=== PATIENT | male | born 1955 | race Caucasian/White ===

== ENCOUNTER → 2020-08-01 09:56 | Outpatient (BNVA) | payer BC, SELFPAY | PROVIDERS: PCP Internal Medicine; Visit Provider Internal Medicine | DX: F11.20 Opioid dependence, uncomplicated (principal) | CPT/HCPCS: 80305; Q9992 ==

== ENCOUNTER → 2020-08-29 10:30 | Outpatient (BNVA) | payer BC, SELFPAY | PROVIDERS: PCP Internal Medicine; Visit Provider Internal Medicine | DX: F11.20 Opioid dependence, uncomplicated (principal) | CPT/HCPCS: 80305; Q9991 ==

== ENCOUNTER 2020-09-26 11:10 | Outpatient (REF) | payer MEDICARE, BC, SELFPAY ==
[2020-09-26 13:08] LABS: Alanine Aminotransferase 34 U/L (0-40); Albumin Level 4.4 g/dL (3.5-5.0); Alkaline Phosphatase 92 U/L (39-117); Amylase 61 U/L (28-100); Anion Gap 13 (12-20); Aspartate Amino Transferase 40 U/L (5-37); Bilirubin Total 0.7 mg/dL (0.0-1.0); Blood Urea Nitrogen 9 mg/dL (9-16); Carbon Dioxide 32 mmol/L (22-29); Chloride 101 mmol/L (96-108); Cholesterol 194 mg/dL; Estimated Glomerular Filt Rate > 60; Glucose Random 100 mg/dL (60-115); HDL Cholesterol 87 mg/dL; LDL Cholesterol Calculated 92 mg/dl; Lipase 59 U/L (8-78); Potassium 4.6 mmol/l (3.3-5.1); Sodium 141 mmol/L (135-145); Total Protein 7.3 g/dL (6.5-8.0); Triglycerides 79 mg/dL
== END 2020-09-26 11:11 | disposition home or self-care (01) ==
LOC: HO.LAB 11:10
PROVIDERS: PCP Internal Medicine; Visit Provider Internal Medicine
DX: E78.00 Pure hypercholesterolemia, unspecified (principal); R10.13 Epigastric pain; I10 Essential (primary) hypertension; F11.99 Opioid use, unspecified with unspecified opioid-induced disorder
CPT/HCPCS: 80053; 80061; 82150; 83690; 96372; Q9991

== ENCOUNTER → 2020-10-24 10:13 | Outpatient (BNVA) | payer MEDICARE, BC, SELFPAY | PROVIDERS: PCP Internal Medicine; Visit Provider Internal Medicine | DX: F11.20 Opioid dependence, uncomplicated (principal) | CPT/HCPCS: 80305; 96372; Q9991 ==

== ENCOUNTER → 2020-11-21 10:20 | Outpatient (BNVA) | payer BC, SELFPAY | PROVIDERS: PCP Internal Medicine; Visit Provider Internal Medicine | DX: F11.99 Opioid use, unspecified with unspecified opioid-induced disorder (principal) ==

== ENCOUNTER → 2020-11-28 10:08 | Outpatient (BNVA) | payer MEDICARE, BC, SELFPAY | PROVIDERS: PCP Internal Medicine; Visit Provider Internal Medicine | DX: F11.99 Opioid use, unspecified with unspecified opioid-induced disorder (principal) | CPT/HCPCS: 80305; 96372; 99212; Q9991 ==

== ENCOUNTER → 2020-12-28 10:40 | Outpatient (BNVA) | payer MEDICARE, BC, SELFPAY | PROVIDERS: Visit Provider Nurse Practitioner Psychiatric/Mental Health | DX: F11.11 Opioid abuse, in remission (principal); Z51.81 Encounter for therapeutic drug level monitoring | CPT/HCPCS: 80305; 96372; 99211; Q9991 ==

== ENCOUNTER → 2021-01-29 10:40 | Outpatient (BNVA) | payer MEDICARE, BC, SELFPAY | PROVIDERS: Visit Provider Internal Medicine | DX: F11.99 Opioid use, unspecified with unspecified opioid-induced disorder (principal) | CPT/HCPCS: 80305; 99212 ==

== ENCOUNTER → 2021-02-13 12:55 | Outpatient (BNVA) | payer MEDICARE, BC, SELFPAY | PROVIDERS: Visit Provider Internal Medicine | DX: F11.20 Opioid dependence, uncomplicated (principal); Z51.81 Encounter for therapeutic drug level monitoring; Z79.899 Other long term (current) drug therapy | CPT/HCPCS: 99211; 99212 ==

== ENCOUNTER → 2021-03-06 10:01 | Outpatient (BNVA) | payer MEDICARE, BC, SELFPAY | PROVIDERS: Visit Provider Internal Medicine | DX: F11.20 Opioid dependence, uncomplicated (principal) | CPT/HCPCS: 80305; 99212 ==

== ENCOUNTER 2022-09-19 08:30 | Outpatient (REF) | payer MEDICARE, BC, SELFPAY ==
[2022-09-19 11:26] LABS: MANUAL DIFF FLAG NO
[2022-09-19 11:29] LABS: Appearance Urine Clear; Color Urine Yellow; Glucose Urine UA Negative (Negative); Leukocyte Esterase Urine Negative (Negative); Nitrite Urine Negative (Negative); PH 8.5 (5.0-9.0); Specific Gravity - Urine 1.015 (1.005-1.025); Urine Blood Negative (Negative); Urine Ketones Negative (Negative); Urine Protein Negative (Neg-Trace)
[2022-09-19 11:39] LABS: Basophils Percent Auto 0.9 % (0-2); Eosinophils Absolute Auto 0.1 X10*3/uL (0.0-0.4); Eosinophils Percent Auto 1.3 % (0-4); Hematocrit 45.1 % (42.0-52.0); Hemoglobin 15.3 g/dl (14.0-18.0); Imm Gran Abs Auto 0.01 X10*3/uL (0.00-0.03); Imm Gran Pct Auto 0.2 % (0.0-0.4); Lymphocytes Absolute Auto 1.4 X10*3/uL (1.2-4.9); Lymphocytes Percent Auto 29.2 % (20-40); Mean Corpuscular HGB Conc 33.9 g/dl (31.0-36.0); Mean Corpuscular Hemoglobin 33.8 pg (27.0-33.0); Mean Corpuscular Volume 99.8 fL (80.0-98.0); Mean Platelet Volume 10.8 fL (9.4-12.4); Monocytes Absolute Auto 0.5 X10*3/uL (0.1-1.2); Monocytes Percent Auto 10.7 % (2-11); Neutrophils Absolute Auto 2.7 x10*3/uL (2.0-8.3); Neutrophils Percent Auto 57.7 % (45-73); Platelet Count 214 X10*3/uL (160-400); Red Blood Count 4.52 X10*6/uL (4.60-5.80); Red Cell Distribution Width 11.6 % (11.0-16.0); White Blood Count 4.7 X10*3/uL (4.8-10.8)
[2022-09-19 11:43] LABS: Bacteria Urine None Seen (None Seen); Hyaline Casts Urine 0-2 /LPF (0-2); RBC Urine 0-2 /HPF (0-2); Squamous Epithelial Cell Urine 0-2 /HPF (0-2); WBC Urine 0-5 /HPF (0-5)
[2022-09-19 13:27] LABS: Alanine Aminotransferase 27 U/L (0-40); Albumin Level 4.7 g/dL (3.5-5.0); Alkaline Phosphatase 91 U/L (39-117); Anion Gap 16 (12-20); Aspartate Amino Transferase 52 U/L (5-37); Bilirubin Total 1.3 mg/dL (0.0-1.0); Blood Urea Nitrogen 8 mg/dL (9-16); Calcium 9.4 mg/dL (8.4-10.2); Carbon Dioxide 28 mmol/L (22-29); Chloride 103 mmol/L (96-108); Cholesterol 241 mg/dL; Estimated Glomerular Filt Rate > 60; Glucose Fasting 107 mg/dL (60-99); HDL Cholesterol 126 mg/dL; LDL Cholesterol Calculated 107 mg/dl; Potassium 4.2 mmol/L (3.3-5.1); Prostate Specific Antigen 6.51 ng/mL (<0.05-4.0); Sodium 143 mmol/L (135-145); Thyroid Stimulating Hormone 1.24 uIU/mL (0.32-4.0); Total Protein 7.7 g/dL (6.5-8.0); Triglycerides 43 mg/dL; Vitamin D 25-OH Total 11.2 ng/mL (>30)
== END 2022-09-19 08:31 | disposition home or self-care (01) ==
LOC: HO.HMGCLDS 08:30
PROVIDERS: PCP Internal Medicine; Visit Provider Internal Medicine
DX: I10 Essential (primary) hypertension (principal); E78.00 Pure hypercholesterolemia, unspecified; E55.9 Vitamin D deficiency, unspecified; Z12.5 Encounter for screening for malignant neoplasm of prostate
CPT/HCPCS: 36415; 80053; 80061; 81001; 82306; 84153; 84443; 85025

== ENCOUNTER 2022-12-19 14:19 | Outpatient (REF) | payer MEDICARE, BC, SELFPAY ==
--- NOTE | 2022-12-19 | ECG_ITS ---
Test Reason : sob Blood Pressure : / mmHG Vent. 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
--- NOTE | ~2022-12-19 | XR_ITS ---
EXAMINATION: XR CHEST CLINICAL INFORMATION: Shortness of breath COMPARISON: None available. TECHNIQUE: 2 views of the chest were obtained. FINDINGS: The right hemidiaphragm is elevated. Otherwise both lungs are well-expanded and clear. The heart size and pulmonary vascularity is normal. There is mild dextroscoliosis. No aggressive lytic or sclerotic process seen. XR/XR chest 2V IMPRESSION: Right hemidiaphragm otherwise unremarkable as chest x-ray.
[2022-12-19 14:43] LABS: MANUAL DIFF FLAG NO
[2022-12-19 15:18] LABS: Basophils Percent Auto 0.5 % (0-2); Eosinophils Absolute Auto 0.1 X10*3/uL (0.0-0.4); Eosinophils Percent Auto 0.9 % (0-4); Hematocrit 44.5 % (42.0-52.0); Hemoglobin 15.6 g/dl (14.0-18.0); Imm Gran Abs Auto 0.01 X10*3/uL (0.00-0.03); Imm Gran Pct Auto 0.2 % (0.0-0.4); Lymphocytes Absolute Auto 1.3 X10*3/uL (1.2-4.9); Lymphocytes Percent Auto 22.7 % (20-40); Mean Corpuscular HGB Conc 35.1 g/dl (31.0-36.0); Mean Corpuscular Hemoglobin 34.4 pg (27.0-33.0); Monocytes Absolute Auto 0.7 X10*3/uL (0.1-1.2); Monocytes Percent Auto 12.9 % (2-11); Neutrophils Absolute Auto 3.5 x10*3/uL (2.0-8.3); Neutrophils Percent Auto 62.8 % (45-73); Platelet Count 180 X10*3/uL (160-400); Red Blood Count 4.54 X10*6/uL (4.60-5.80); Red Cell Distribution Width 12.8 % (11.0-16.0); White Blood Count 5.6 X10*3/uL (4.8-10.8)
[2022-12-19 15:50] LABS: Alanine Aminotransferase 46 U/L (0-40); Albumin Level 4.7 g/dL (3.5-5.0); Alkaline Phosphatase 97 U/L (39-117); Anion Gap 18 (12-20); Aspartate Amino Transferase 90 U/L (5-37); Bilirubin Total 1.9 mg/dL (0.0-1.0); Blood Urea Nitrogen 6 mg/dL (9-16); C Reactive Protein 1.36 mg/dL (< or = 0.50); Calcium 9.3 mg/dL (8.4-10.2); Carbon Dioxide 26 mmol/L (22-29); Chloride 102 mmol/L (96-108); Estimated Glomerular Filt Rate > 60; Glucose Random 91 mg/dL (60-115); Potassium 3.8 mmol/L (3.3-5.1); Sodium 142 mmol/L (135-145); Total Protein 7.7 g/dL (6.5-8.0)
[2022-12-19 16:07] LABS: Thyroid Stimulating Hormone 0.92 uIU/mL (0.32-4.0)
== END 2022-12-19 14:20 | disposition home or self-care (01) ==
LOC: HO.LAB 14:19
PROVIDERS: PCP Internal Medicine; Visit Provider Internal Medicine
DX: R06.02 Shortness of breath (principal); I10 Essential (primary) hypertension; E66.9 Obesity, unspecified
CPT/HCPCS: 36415; 71046; 80053; 84443; 85025; 86140; 93005

== ENCOUNTER 2023-01-03 12:53 | Outpatient (REF) | payer MEDICARE, BC, SELFPAY ==
[2023-01-03 14:41] LABS: Prostate Specific Antigen 5.92 ng/mL (<0.05-4.0)
== END 2023-01-03 12:54 | disposition home or self-care (01) ==
LOC: HO.HMGCLDS 12:53
PROVIDERS: PCP Internal Medicine; Visit Provider Physician Assistant
DX: R97.20 Elevated prostate specific antigen [PSA] (principal); Z12.5 Encounter for screening for malignant neoplasm of prostate
CPT/HCPCS: 36415; 84153

== ENCOUNTER 2024-11-30 08:59 | Outpatient (AMB) | payer MEDICARE, BC, SELFPAY ==
--- NOTE | 2024-11-30 09:02 | A.OFFPC_ITS ---
Vital Signs 11/30/24 09:14 Height 5 ft 9.25 in Weight 241 lb BMI 35.3 BP 132/72 Blood Pressure Location Rt brachial Pulse 60 Pulse Source Pulse Oximeter Temp 97.1 F Pulse Oximetry (%) 94 Oxygen Delivery Method Room Air Intake Visit Reasons: physical Intake Note: trouble with his legs and shoulders the legs are getting worse can't do stairs fell about 5 times and needed help up. Allergies No Known Allergies Allergy (Verified 11/30/24 10:47) seasonal Allergy (Unknown, Uncoded 11/30/24 10:47) Itchy Eyes Medication List - Last Reconciled 11/30/24 by Lilly Cotton PA-C amlodipine-benazepril 10-40 mg 1 cap PO DAILY atorvastatin 40 mg PO DAILY cholecalciferol (vitamin D3) mcg PO clonidine HCl 0.05 mg PO BID PFSH Medical History (Updated 11/30/24 @ 11:28 by Lilly Cotton PA-C) Obesity (BMI 30-39.9) Alcohol use disorder, moderate, dependence Gait disorder Elevated PSA History of gastritis Degenerative disc disease, lumbar Depression Cervical spondylosis Osteoarthritis Mild hypercholesterolemia Hypertension Opioid use disorder Opioid use disorder Surgical History History of colonoscopy (~11/23/14) History of neck surgery History of back surgery Physical exam (Primary Care) Vital Signs: Last Vital Signs Temp 97.1 F 11/30/24 09:14 Pulse 60 11/30/24 09:14 BP 132/72 11/30/24 09:14 Pulse Ox 60 L 11/30/24 09:14 Care Plan Goal for BP management: 130/80 BMI result Body Mass Index 35.3 BMI Assessment/Plan discussion: High BMI High, discussed plan: lifestyle, weight reduction, dietary, physical activity and alcohol moderation Coding Level of Care Code New Pt Level 4 (92209) Complex EM visit Add On G2211 Diagnoses Elevated PSA R97.20 Gait disorder R26.9 Alcohol use disorder, moderate, dependence F10.20 Hypertension I10 Mild hypercholesterolemia E78.00 Osteoarthritis M19.90 Cervical spondylosis M47.812 Depression F32.A Degenerative disc disease, lumbar M51.369 Obesity (BMI 30-39.9) E66.9 Assessment & Plan Assessment & Plan (1) Elevated PSA: Code(s): R97.20 - Elevated prostate specific antigen [PSA] Category: Medical Plan: Patient noted to have elevated PSA on 01/03/2023. Follow-up with the urologist and [facility] although patient had a bad experience and did not go back. Reports he had an MRI although never found out the results. Will refer to new urologist and repeat PSA. Condition is chronic and stable continue to monitor. (2) Gait disorder: Code(s): R26.9 - Unspecified abnormalities of gait and mobility Category: Medical Plan: Patient with ataxic gait. This is new over the past few months. Otherwise no other focal deficits. May be related from chronic alcohol dependency. Will order outpatient labs. Will order outpatient CT scan. Will refer to Physical therapy. Instructed patient to utilize his walker and cane as much as possible. Filled out plaque form for his car to be able to parking handicap parking. Will have patient return in 2 weeks for re-evaluation. (3) Alcohol use disorder, moderate, dependence: Code(s): F10.20 - Alcohol dependence, uncomplicated Category: Medical Plan: Patient educated about alcohol use disorder and the importance of this session. No evidence of withdrawal symptoms. Condition is chronic and stable continue to monitor (4) Hypertension: Code(s): I10 - Essential (primary) hypertension Category: Medical Plan: BP Goal 130/80. Blood pressure 130/72. Patient currently on amlodipine-b enazepril 10-40 mg daily. Condition is chronic and stable continue to monitor. (5) Mild hypercholesterolemia: Code(s): E78.00 - Pure hypercholesterolemia, unspecified Category: Medical Plan: Patient currently on atorvastatin 40 mg daily. Condition is chronic and stable continue to monitor. (6) Osteoarthritis: Code(s): M19.90 - Unspecified osteoarthritis, unspecified site Category: Medical Plan: Patient currently taking [id number] Tylenol and ibuprofen. Will send prescription for ibuprofen 800. As patient reports ibuprofen helps his symptoms better than than the Tylenol does. Condition is chronic and stable continue to monitor. (7) Cervical spondylosis: Code(s): M47.812 - Spondylosis without myelopathy or radiculopathy, cervical region Category: Medical Plan: Patient currently taking fcje-fzw-mypomwz Tylenol and ibuprofen. Will send prescription for ibuprofen 800. As patient reports ibuprofen helps his symptoms better than than the Tylenol does. Condition is chronic and stable continue to monitor. (8) Depression: Code(s): F32.A - Depression, unspecified Category: Medical Plan: Patient currently on clonidine 0.5 mg p.o. b.i.d.. Condition is chronic and stable continue to monitor. (9) Degenerative disc disease, lumbar: Code(s): M51.369 - Other intervertebral disc degeneration, lumbar region without mention of lumbar back pain or lower extremity pain Category: Medical Plan: Patient currently taking sltp-zsz-hjptpxm Tylenol and ibuprofen. Will send prescription for ibuprofen 800. As patient reports ibuprofen helps his symptoms better than than the Tylenol does. Condition is chronic and stable continue to monitor. (10) Obesity (BMI 30-39.9): Code(s): E66.9 - Obesity, unspecified Category: Medical Plan: Patient to improve his diet and exercise regimen. Condition is chronic and stable continue to monitor. Plan Plan - Conduct a Complete Blood Count CBC) and Comprehensive Metabolic Panel CMP) to examine blood cell counts and metabolic function. - Order liver function tests, thyroid function tests TSH), and vitamin panels including B1, , and D levels. - Check PSA levels and conduct a lipid panel. - Refer to urology for PSA management and potential prostate evaluation. - Obtain a CT scan of the head without contrast to assess potential neurological factors related to falls. - Advise patient to utilize a walker regularly and consider physical therapy for gait disorder management. - Discuss implications of alcohol use on health and consider reduction strategies. Orders: Orders Complete Blood Count Auto Diff Today Z00.00 - Encounter for general adult medical examination without abnormal findings C Reactive Protein Today Z00.00 - Encounter for general adult medical examination without abnormal findings Lipid Panel Today Z00.00 - Encounter for general adult medical examination without abnormal findings Liver Panel Today Z00.00 - Encounter for general adult medical examination without abnormal findings Magnesium Today Z00.00 - Encounter for general adult medical examination without abnormal findings TSH reflex Free T4 Today Z00.00 - Encounter for general adult medical examination without abnormal findings Vitamin B1 Today Z00.00 - Encounter for general adult medical examination without abnormal findings Vitamin B12 and Folate Today Z00.00 - Encounter for general adult medical ex amination without abnormal findings Vitamin D 25-OH Total Today Z00.00 - Encounter for general adult medical examination without abnormal findings Hemoglobin A1c Today Z00.00 - Encounter for general adult medical examination without abnormal findings PT Evaluation and Treatment Today R26.9 - Unspecified abnormalities of gait and mobility Comprehensive [place]. Panel Fast Today Z00.00 - Encounter for general adult medical examination without abnormal findings PSA,Total (Free>4and<10) Today Z00.00 - Encounter for general adult medical examination without abnormal findings RPR Monitor reflex titer Today R26.9 - Unspecified abnormalities of gait and mobility CT head/brain wo IV con Today R26.9 - Unspecified abnormalities of gait and mobility Referrals Urology Referral R97.20 - Elevated prostate specific antigen [PSA] Medications: New ibuprofen 800 mg PO Q8H 30 tabs 3RF Patient Instructions: Patient Instructions - Proceed to have blood work done as discussed (CBC, CMP, liver, and thyroid pa ronal). - Schedule and complete the CT scan of the head. - Follow up with urology for prostate assessment. - Encourage reducing alcohol intake to mitigate health impacts. - Utilize walker routinely for safe mobility and prevent falls. - Attend the physical therapy session to obtain an exercise plan. - Visit us in two weeks for follow-up and to review results. Scribe Plan - Not visible on output: History of Present Illness The patient is a 69-year-old male presenting with multiple falls and a deterioration of his physical condition. The falls have increased in frequency over the past six months, with the patient experiencing difficulty ascending stairs, weakness when getting out of bed, and rubbery legs. The patient has fallen five times in the past month. He uses a walker and a cane but continues to have falls. There is no noted dizziness, vision changes, or confusion, but the patient reports hand tremors when sitting in a chair. There is no known family history of neurodegenerative disorders such as Parkinson's or Donald's disease. The patient consumes alcohol, about four beers a day occasionally and possibly contributing to his condition. He has a history of essential hypertension, hyperlipidemia, previous elevated bilirubin levels, and elevated PSA levels noted in 2022 which were not followed up. He has undergone an MRI in the past, which remains with the treating facility. The patient received medical advice from a previous urologist but was dissatisfied with the care there. Additionally, the patient reports frequent urination but no incontinence. He experiences chronic neck spasms and has a past medical history significant for hip replacement surgery. Social History - Substance Use: History of substance abuse, previously treated with buprenorphine. Current consumption of approximately four beers a day occasionally. - Employment: Formerly worked in construction. - Family Status: , with family support. - Housing: Stable, with provisions for mobility assistance such as raised toilet seats and handrails. - Exercise/Functional Status: Limited physical activity due to past falls and physical decline; uses a walker or cane. - Nutrition: Reduced dietary intake; spouse encourages eating. Review of Systems - Neurological: Reports hand tremors while sitting. - Musculoskeletal: Denies significant pain or new onset pain elsewhere. - Genitourinary: Reports frequent urination, denies incontinence or accidents. - Constitutional: Reports feeling tired all the time. Physical Exam Appearance: Alert. Oriented X3. No acute distress. Head: Normal external exam. Normocephalic. Atraumatic. Eyes: Pupils are equal, round, and reactive to light. Extraocular movements intact. Conjunctiva and sclera normal. Eyelids normal. Ears: External auditory canal normal. Tympanic membranes normal. Throat: Pharynx normal. Uvula midline. Moist mucous membranes. Neck: Normal inspection. Neck supple. Full range of motion. No adenopathy. Thyroid Normal. No meningeal signs. No neck mass noted. Cardiovascular: Normal heart rate and rhythm. Heart sound normal. No murmurs noted. Pulses normal throughout. Respiratory: No respiratory distress. Painless inspiration. Breath sounds normal. No wheezes/rales/rhonchi noted. Chest nontender. No accessory muscle usage noted or decreased air movement noted. Abdomen: Soft and nontender. Bowel sounds normal in all 4 quadrants. No distention noted. No organomegaly noted. No visible injury noted. Back: No costovertebral angle tenderness. Full range of motion noted. Skin: Skin warm and dry. Normal skin color. Normal skin turgor. No rashes/lesions/lacerations noted. Extremities: No lower extremity edema. Extremities exhibit normal range of motion. Extremities nontender. Neuro: Oriented X 3. No motor deficit. No sensory deficit. Reflexes normal. Noted ataxic gait. Shaking observed when sitting. Results - Labs: Elevated PSA in 2022, elevated bilirubin levels in the past. - Tests and Diagnostics: Previous MRI performed; report not available. Plan - Conduct a Complete Blood Count CBC) and Comprehensive Metabolic Panel CMP) to examine blood cell counts and metabolic function. - Order liver function tests, thyroid function tests TSH), and vitamin panels including B1, , and D levels. - Check PSA levels and conduct a lipid panel. - Refer to urology for PSA management and potential prostate evaluation. - Obtain a CT scan of the head without contrast to assess potential neurological factors related to falls. - Advise patient to utilize a walker regularly and consider physical therapy for gait disorder management. - Discuss implications of alcohol use on health and consider reduction strategies. Patient was informed and verbally consented to the use of an ambient scribe for clinic note documentation during this visit. Discussion Notes I engaged in a detailed discussion with the patient and spouse about the health concerns, emphasizing the risks associated with alcohol use and potential consequences, such as falls and neurological effects. I explained the need for a thorough evaluation of his condition, including blood work and imaging studies, to rule out metabolic and structural causes of his symptoms. We discussed the potential diagnosis of alcoholic ataxia and its implications. The importance of follow-ups with both neurology and urology was stressed to ensure comprehensive management of his conditions. I recommended physical therapy to improve gait stability and prevent future falls, though the patient was initially resistant but open to trying recommended exercises once. All recommendations were provided, and they understood the necessity of the interventions and agreed to proceed with the planned tests and referrals. Patient Instructions - Proceed to have blood work done as discussed (CBC, CMP, liver, and thyroid panels). - Schedule and complete the CT scan of the head. - Follow up with urology for prostate assessment. - Encourage reducing alcohol intake to mitigate health impacts. - Utilize walker routinely for safe mobility and prevent falls. - Attend the physical therapy session to obtain an exercise plan. - Visit us in two weeks for follow-up and to review results.
[2024-11-30 09:14] VITALS: BP 132/72; PULSE 60; TEMP 36.2; O2SAT 94; BMI 35.3
== END 2024-11-30 09:50 | disposition home or self-care (01) ==
LOC: HO.HMCSH 09:00
PROVIDERS: PCP Internal Medicine; Visit Provider Physician Assistant Medical
DX: R97.20 Elevated prostate specific antigen [PSA] (principal); R26.9 Unspecified abnormalities of gait and mobility; F10.20 Alcohol dependence, uncomplicated; I10 Essential (primary) hypertension; E78.00 Pure hypercholesterolemia, unspecified; M19.90 Unspecified osteoarthritis, unspecified site; M47.812 Spondylosis without myelopathy or radiculopathy, cervical region; F32.A Depression, unspecified; M51.369 Other intervertebral disc degeneration, lumbar region without mention of lumbar back pain or lower extremity pain; E66.9 Obesity, unspecified

== ENCOUNTER → 2024-11-30 08:59 | Outpatient (BNVA) | payer MEDICARE, BC, SELFPAY | PROVIDERS: PCP Internal Medicine; Visit Provider Physician Assistant Medical | DX: R97.20 Elevated prostate specific antigen [PSA] (principal); R26.9 Unspecified abnormalities of gait and mobility; F10.20 Alcohol dependence, uncomplicated; E78.00 Pure hypercholesterolemia, unspecified; I10 Essential (primary) hypertension; M19.90 Unspecified osteoarthritis, unspecified site; M47.812 Spondylosis without myelopathy or radiculopathy, cervical region; F32.A Depression, unspecified; M51.369 Other intervertebral disc degeneration, lumbar region without mention of lumbar back pain or lower extremity pain; E66.9 Obesity, unspecified | CPT/HCPCS: 99202 ==

== ENCOUNTER 2024-12-03 08:06 | Outpatient (REF) | payer MEDICARE, BC, SELFPAY ==
[2024-12-03 10:24] LABS: MANUAL DIFF FLAG NO
[2024-12-03 10:35] LABS: Basophils Percent Auto 0.7 % (0-2); Hematocrit 46.9 % (42.0-52.0); Imm Gran Abs Auto 0.01 X10*3/uL (0.00-0.03); Imm Gran Pct Auto 0.2 % (0.0-0.4); Lymphocytes Absolute Auto 1.1 X10*3/uL (1.2-4.9); Mean Corpuscular HGB Conc 36.2 g/dl (31.0-36.0); Mean Corpuscular Hemoglobin 35.1 pg (27.0-33.0); Mean Corpuscular Volume 96.7 fL (80.0-98.0); Mean Platelet Volume 11.9 fL (9.4-12.4); Monocytes Absolute Auto 0.5 X10*3/uL (0.1-1.2); Monocytes Percent Auto 8.4 % (2-11); Neutrophils Percent Auto 71.7 % (45-73); Red Blood Count 4.85 X10*6/uL (4.60-5.80); Red Cell Distribution Width 12.2 % (11.0-16.0); White Blood Count 5.6 X10*3/uL (4.8-10.8)
[2024-12-03 10:36] LABS: Platelet Count 124 X10*3/uL (160-400)
[2024-12-03 10:37] LABS: Estimated Average Glucose 114 mg/dL; Hemoglobin A1C 161.0369 umol/L; Hemoglobin A1c % 5.6 % (<6.0); Total Hemoglobin (HGBA1C) 4298.7984 umol/L
[2024-12-03 11:00] LABS: PSA,Total (Free>4and<10) 8.24 ng/mL (0.00-4.00)
[2024-12-03 11:12] LABS: Folate 3.2 ng/mL (> or = 4.0); Vitamin B12 525 pg/mL (200-900)
[2024-12-03 11:19] LABS: Alanine Aminotransferase 58 U/L (0-40); Albumin Level 4.4 g/dL (3.5-5.0); Anion Gap 25 (12-20); Aspartate Amino Transferase 190 U/L (5-37); Bilirubin Direct 1.2 mg/dL (0.0-0.5); Bilirubin Total 3.1 mg/dL (0.0-1.0); Blood Urea Nitrogen 7 mg/dL (9-16); Calcium 8.9 mg/dL (8.4-10.2); Carbon Dioxide 29 mmol/L (22-29); Chloride 95 mmol/L (96-108); Cholesterol 118 mg/dL (<200); Estimated Glomerular Filt Rate > 60; Glucose Fasting 109 mg/dL (60-99); HDL Cholesterol 74 mg/dL (>40); LDL Cholesterol Calculated 29 mg/dL (<100); Magnesium 1.1 mg/dL (1.6-2.6); Potassium 3.5 mmol/L (3.3-5.1); Sodium 145 mmol/L (135-145); Total Protein 8.2 g/dL (6.5-8.0); Triglycerides 76 mg/dL (<150); Vitamin D 25-OH Total 60.6 ng/mL (>30)
[2024-12-03 11:22] LABS: Alkaline Phosphatase 76 U/L (39-117)
[2024-12-05 15:39] LABS: RPR Rapid Plasma Reagin NON-REACTIVE (NON-REACTIVE)
[2024-12-06 09:39] LABS: Percent Free Prostate Spec Ag 24 % (calc) (>25); Prostate Specific Ag Total 8.2 ng/mL (< OR = 4.0)
[2024-12-12 14:08] LABS: Vitamin B1 <6 nmol/L (8-30)
== END 2024-12-03 08:07 | disposition home or self-care (01) ==
LOC: HO.HMGCLDS 08:06
PROVIDERS: PCP Internal Medicine; Visit Provider Physician Assistant Medical
DX: Z00.00 Encounter for general adult medical examination without abnormal findings (principal); R26.9 Unspecified abnormalities of gait and mobility; Z12.5 Encounter for screening for malignant neoplasm of prostate; Z13.1 Encounter for screening for diabetes mellitus; Z13.6 Encounter for screening for cardiovascular disorders
CPT/HCPCS: 36415; 80053; 80061; 80076; 82248; 82306; 82607; 82746; 83036; 83735; 84153; 84154; 84425; 84443; 85025; 86140; 86592

== ENCOUNTER 2024-12-24 07:29 | Outpatient (REF) | payer MEDICARE, BC, SELFPAY ==
--- NOTE | ~2024-12-24 | CT_ITS ---
EXAMINATION: CT HEAD WITHOUT CONTRAST CLINICAL INFORMATION: R26.9 - Unspecified abnormalities of gait and mobility COMPARISON: None available. TECHNIQUE: Contiguous axial imaging was performed from the skull base to vertex without intravenous administration of contrast. This CT examination was performed using dose optimization techniques as appropriate, variously including the following: *Automated exposure control *Adjustment of mA and/or kV according to patient size (this includes techniques or standardized protocols for targeted exams where dose is matched to indication/reason for exam; i.e. extremities or head) *Use of iterative reconstruction technique DLP: 909 mGy-cm FINDINGS: No acute intracranial hemorrhage, mass effect, midline shift, hydrocephalus or herniation. Bilateral multifocal patchy deep periventricular white matter hypodensities involving centrum semiovale and michaels radiata. Prominence of the extra-axial CSF spaces cerebral sulci and ventricles. Posterior cranial fossa contents demonstrated no CSF prominence extending from the inferior fourth ventricle beneath the vermis cerebellum and cisterna magna. Sellar/suprasellar region demonstrated no gross masses. Craniocervical junction is intact. Calcified plaques in the cavernous segments both ICAs. Old traumatic deformities, nasal bones and right zygomatic arc. Poor pneumatization left frontal sinus. No air-fluid levels in the paranasal sinuses. Mucosal thickening maxillary sinuses. Tympanic cavities and mastoid cells are aerated. No masses or fluid collections in the intraconal or extraconal compartments of the orbits. Status post intraocular lens surgery, right eyeball. CT/CT head/brain wo IV con IMPRESSION: White matter disease likely related to small vessel occlusive disease. Mild global cerebral atrophy. Consider Paddy's pouch cyst Electronically signed by: Kevin Hernández MD 12/24/2024 08:15 AM EDT
--- NOTE | ~2024-12-24 | US_ITS ---
EXAMINATION: US ABDOMEN HISTORY: R74.8 - Abnormal levels of other serum enzymes TECHNIQUE: Real-time grayscale ultrasound imaging of the abdomen was performed and images were reviewed. COMPARISON: Comparison is made with the prior examination dated 03/21/2020. FINDINGS: Liver: The right lobe of the liver measures 14.0 cm in size. The left lobe of the liver is largely obscured. The liver demonstrates heterogeneous increased echotexture, consistent with steatosis. Evaluation for masses is extremely limited. Gallbladder and biliary tree: The gallbladder is unremarkable, without evidence of calculi, wall thickening, or pericholecystic fluid. There is no sonographic Yuan sign. The common bile duct is not visualized. Kidneys: The right kidney measures 11.5 cm in length. The left kidney measures 12.2 cm in length. The kidneys are unremarkable, without evidence of masses, hydronephrosis, or calculi. Pancreas: The pancreas is obscured by bowel gas. Spleen: The spleen is normal in size and contour, measuring 9.3 cm in length. Abdominal aorta and inferior vena cava: The abdominal aorta and IVC are not well visualized. There is no free fluid in the abdomen. US/US abdomen complete IMPRESSION: Markedly limited examination as described. Hepatic steatosis. Electronically signed by: Tyrone Joy MD 12/24/2024 08:16 AM EDT
== END 2024-12-24 07:30 | disposition home or self-care (01) ==
LOC: HO.CT 07:29
PROVIDERS: PCP Internal Medicine; Visit Provider Physician Assistant Medical
DX: R26.9 Unspecified abnormalities of gait and mobility (principal); R74.8 Abnormal levels of other serum enzymes; F10.20 Alcohol dependence, uncomplicated
CPT/HCPCS: 70450; 76700

== ENCOUNTER → 2024-12-24 07:31 | Outpatient (BNV) | payer MEDICARE, BC, SELFPAY | PROVIDERS: PCP Internal Medicine; Visit Provider Radiology Diagnostic Radiology | DX: G31.9 Degenerative disease of nervous system, unspecified (principal); R26.9 Unspecified abnormalities of gait and mobility; K76.0 Fatty (change of) liver, not elsewhere classified; R74.8 Abnormal levels of other serum enzymes | CPT/HCPCS: 76700 ==

== ENCOUNTER 2025-01-05 08:59 | Outpatient (AMB) | payer MEDICARE, SELFPAY ==
--- NOTE | 2025-01-05 09:11 | A.OFFPC_ITS ---
Vital Signs 01/05/25 09:20 Height 5 ft 9.25 in Weight 239 lb BMI 35.0 BP 130/78 Blood Pressure Location Lt brachial Pulse 82 Pulse Source Pulse Oximeter Temp 97.7 F Pulse Oximetry (%) 96 Intake Visit Reasons: 1 month follow up Intake Note: would like to discuss his tonsils he feels throat is swelling up in the back and makes him throw up Allergies No Known Allergies Allergy (Verified 01/05/25 12:33) seasonal Allergy (Unknown, Uncoded 01/05/25 12:33) Itchy Eyes Medication List - Last Reconciled 01/05/25 by Lilly Cotton PA-C amlodipine-benazepril 10-40 mg 1 cap PO DAILY atorvastatin 40 mg PO DAILY cholecalciferol (vitamin D3) mcg PO clonidine HCl 0.05 mg (1/2 x 0.1 mg) PO BID 90 days folic acid 0.8 mg PO DAILY ibuprofen 800 mg PO Q8H iron fum,jb-mxzdz-Myuai,C no.9 125 mg iron- 1 mg (Iron Folate Plus) 1 cap PO DAILY magnesium oxide 400 mg PO DAILY thiamine HCl (vitamin B1) 100 mg PO DAILY COUNTS INCLUDE 234 BEDS AT THE [facility] Medical History (Updated 01/05/25 @ 12:56 by Lilly Cotton PA-C) Thiamine deficiency Low folic acid Hypomagnesemia Falls Elevated liver enzymes Cerebral atrophy Ataxia Persistent Paddy pouch cyst Abnormal liver enzymes Thrombocytopenia Elevated PSA, less than 10 ng/ml Obesity (BMI 30-39.9) Alcohol use disorder, moderate, dependence Gait disorder Elevated PSA History of gastritis Degenerative disc disease, lumbar Depression Cervical spondylosis Osteoarthritis Mild hypercholesterolemia Hypertension Opioid use disorder Opioid use disorder Surgical History History of colonoscopy (~11/23/14) History of neck surgery History of back surgery Questionnaire PHQ-9 Over the last 2 weeks, how often have you been bothered by any of the following problems? 1. Little interest or pleasure in doing things: more than half the days 2. Feeling down, depressed, or hopeless: not at all 3. Trouble falling or staying asleep, or sleeping too much: not at all 4. Feeling tired or having little energy: nearly every day 5. Poor appetite or overeating: not at all 6. Feeling bad about yourself - or that you are a failure or have let yourself or your family down: more than half the days 7. Trouble concentrating on things, such as reading the newspaper or watching television: not at all 8. Moving or speaking so slowly that other people could have noticed. Or the opposite - being so fidgety or restless that you have been moving around a lot more than usual: more than half the days 9. Thoughts that you would be better off or of hurting yourself in some way: not at all Total score: 9 Depression Screening Interpretation: Positive Depression Screening Follow-up: Declines treatment Depression Screening Done: Yes 88364 - PHQ-9 Billing: Yes Source: Developed by Drs. Tyrone Candelaria, Jessie Duque, Taras Mcnulty and colleagues, with an educational adalgisa from [employer]. Thrive Questionnaire Date Thrive assessed: 01/05/25 I am a: Patient What is your living situation today?: I have a steady place to live Within the past 12 months, did the food you bought not last and you didn't have the money to get more?: Never true Within the past 12 months, did you worry whether your food would run out before you got money to buy more?: Never true Do you have trouble paying for medicines?: No Do you have trouble getting transportation to medical appointments?: No Do you have trouble paying your heating and electricity bill?: No Do you have trouble taking care of your child, family member or friend?: Yes Do you have trouble with day-to-day activities such as bathing, preparing meals, shopping, managing finances, etc.?: Yes Are you currently unemployed and looking for a job?: No Are you interested in more education?: No THRIVE Score: 0 AUDIT C Alcohol Use Questionnaire (AUDIT-C) 1. How often do you have a drink containing alcohol?: 2-3 times a week 2. How many drinks containing alcohol do you have on a typical day when you are drinking?: 3 or 4 3. How often do you have six or more drinks on one occasion?: Weekly Total Score: 7 Score Reviewed/Action Taken: Yes (pt not interested in stopping drinking at this time) MELVIN-7 AMB Questionnaire MELVIN-7 Date MELVIN - 7 assessed: 01/05/25 Feeling nervous, anxious, or on edge: 0 = Not at all Not being able to stop or control worryin = Not at all Worrying too much about different things: 0 = Not at all Trouble relaxin = Not at all Being so restless that it is hard to sit still: 0 = Not at all Becoming easily annoyed or irritable: 0 = Not at all Feeling afraid as if something awful might happen: 0 = Not at all Total MELVIN-7 score (0-4 normal; 5-9 mild; 10-14 moderate; 15-21 severe): 0 Source: Developed by Drs. Tyrone Candelaria, Jessie Duque, Taras Mcnulty and colleagues, with an educational adalgisa from [employer]. MELVIN-7 Assessment Billing MELVIN-7 Assessment Tool: MELVIN-7 Assessment 05793 Physical exam (Primary Care) Vital Signs: Last Vital Signs Temp 97.7 F 01/05/25 09:20 Pulse 82 01/05/25 09:20 BP 98/69 01/05/25 09:20 Pulse Ox 96 01/05/25 09:20 BMI result Body Mass Index 35.0 PHQ-9: PHQ-9 Score PHQ-9: Total score 9 01/05/25 12:57 Depression Screening Interpretation: Positive Depression Screening Follow-up: Declines treatment Thrive Assessment: Date of Thrive Assessment Date Thrive assessed 01/05/25 01/05/25 09:26 Coding Level of Care Code Est Pt Level 4 (19848) Complex EM visit Add On G2211 Diagnoses Ataxia R27.0 Persistent Paddy pouch cyst Q03.1 Elevated PSA, less than 10 ng/ml R97.20 Alcohol use disorder, moderate, dependence F10.20 Gait disorder R26.9 Cerebral atrophy G31.9 Elevated liver enzymes R74.8 Depression F32.A Falls R29.6 Hypomagnesemia E83.42 Low folic acid E53.8 Thiamine deficiency E51.9 Additional Codes MELVIN-7 Assessment Billing - MELVIN-7 Assessment Tool: MELVIN-7 Assessment 51536 ([id number]) PHQ-9 - 64449 - PHQ-9 Billing: Yes ([id number]) Assessment & Plan Assessment & Plan (1) Ataxia: Code(s): R27.0 - Ataxia, unspecified Category: Medical Plan: Plan physical therapy consultation to support stability. Neurological observation to guide further approach. 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 Ongoing assessment maintains clinical vigilance. (3) Elevated PSA, less than 10 ng/ml: Code(s): R97.20 - Elevated prostate specific antigen [PSA] Category: Medical Plan: Patient to follow-up with urology as scheduled. (4) Alcohol use disorder, moderate, dependence: Code(s): F10.20 - Alcohol dependence, uncomplicated Category: Medical Plan: Abstain from alcohol and consider behavioral therapy. Regular follow-up is crucial for recovery management. (5) Gait disorder: Code(s): R26.9 - Unspecified abnormalities of gait and mobility Category: Medical Plan: Plan physical therapy consultation to support stability. Neurological observation to guide further approach. (6) Cerebral atrophy: Code(s): G31.9 - Degenerative disease of nervous system, unspecified Category: Medical Plan: Plan physical therapy consultation to support stability. Neurological observation to guide further approach. (7) Elevated liver enzymes: Code(s): R74.8 - Abnormal levels of other serum enzymes Category: Medical Plan: Implement dietary modifications and routine liver function monitoring. Recommended lifestyle alterations on the basis of current evaluations. (8) Depression: Code(s): F32.A - Depression, unspecified Category: Medical Plan: Recommended referral to therapist or psychiatrist although patient declined at this time. Denies any SI or HI. will make us aware if patient's mental status changes in his she feels like he needs a therapist or psychiatrist. Will continue to monitor condition is stable without medications. (9) Falls: Code(s): R29.6 - Repeated falls Category: Medical Plan: Plan physical therapy consultation to support stability. Neurological observation to guide further approach. (10) Hypomagnesemia: Code(s): E83.42 - Hypomagnesemia Category: Medical Plan: Continue magnesium, folic acid, and vitamin B1 supplements, pending follow-up evaluation. (11) Low folic acid: Code(s): E53.8 - Deficiency of other specified B group vitamins Category: Medical Plan: Continue magnesium, folic acid, and vitamin B1 supplements, pending follow-up evaluation. (12) Thiamine deficiency: Code(s): E51.9 - Thiamine deficiency, unspecified Category: Medical Plan: Continue magnesium, folic acid, and vitamin B1 supplements, pending follow-up e valuation. Plan Plan Patient was informed and verbally consented to the use of an ambient scribe for clinic note documentation during this visit. 1. Chronic Alcoholism Abstain from alcohol and consider behavioral therapy. Regular follow-up is crucial for recovery management. 2. Falls Plan physical therapy consultation to support stability. Neurological observation to guide further approach. 3. Sore Throat With Gagging/Suspected Uvulitis Advise symptomatic management. Avoid interventions without clear necessity, pending changes in symptom status. 4. Magnesium Deficiency, Low Folic Acid, And Vitamin B1 Levels Continue magnesium, folic acid, and vitamin B1 supplements, pending follow-up evaluation. 5. Cyst-Like Structure Scheduled observation within a neurological context. Ongoing assessment maintains clinical vigilance. 6. Elevated Liver Enzymes And Fatty Liver Implement dietary modifications and routine liver function monitoring. Recommended lifestyle alterations on the basis of current evaluations. 7. Personal history of other specified conditions Ongoing urology consultations with adherence to scheduled examinations remain fundamental. Discussion Notes During this visit, I discussed with the patient the significance of abstaining from alcohol to prevent further complications with hepatic function and neurological impacts. Given his current liver status, we reviewed the implications of elevated enzyme levels and discussed dietary modifications to improve fatty liver. Symptom management for his sore throat, suspected of uvulitis, emphasized observation with symptomatic relief over antibiotics unless necessary, based on progression. Supplement continuation was confirmed, with agreements on vitamin level improvement. Falls linked to the patient's balance issues require physical therapy consideration, potentially beneficial for fall prevention. I reinforced follow-up adherence for all chronic conditions and provided feedback understanding test-related expectations. The plan includes collaboration between primary and specialty care to ensure comprehensive management. Orders: Orders Liver Panel Today Z00.00 - Encounter for general adult medical examination without abnormal findings Vitamin B1 Today Z00.00 - Encounter for general adult medical examination without abnormal findings Vitamin B12 and Folate Today Z00.00 - Encounter for general adult medical examination without abnormal findings Zinc Today Z00.00 - Encounter for general adult medical examination without abnormal findings Comprehensive Met. Panel Today Z00.00 - Encounter for general adult medical examination without abnormal findings Magnesium Today Z00.00 - Encounter for general adult medical examination without abnormal findings Vitamin A Today Z00.00 - Encounter for general adult medical examination without abnormal findings Medications: Refilled magnesium oxide 400 mg PO DAILY 30 tabs 0RF Patient Instructions: Patient Instructions - Avoid alcohol consumption to support liver and nerve function. - Follow a balanced diet, noting liver implications. - Take supplements as prescribed for magnesium, folic acid, and vitamin B1. - Monitor sore throat symptoms; consult if persisting or worsening. - Attend physical therapy for balance improvement. - Maintain upcoming appointments, especially for urology and neurological evaluations. - Accomplish blood work as noted, ensuring vitamin and mineral levels are within the desired range. - Report any falls or major symptom changes immediately. Scribe Plan - Not visible on output: History of Present Illness This is a 69-year-old male presenting to the primary care for follow-up on his unsteadiness/ataxic gait and frequent falls. He had blood work obtained on 12/03/2024 which revealed a low magnesium of 1.1, elevated liver enzymes with a total bilirubin of 3.1, direct bilirubin of 1.2, AST of 190, ALT of 58 along with an elevated PSA level, a low vitamin B1 and a low folate level. He was started on oral magnesium. He was also started on vitamin B1 and folate supplements daily. He is taking as prescribed. He was referred to urologist. He had an abdominal ultrasound of the liver which revealed hepatic steatosis otherwise no other acute processes although limited exam. reports he has fallen twice since his last visit here although his mentation has stayed the same. She reports he is very forgetful. He did not remember that I called him about his CT scan results to explained to him that he had a cyst like structure in the brain and that I was referring him to Neurology. He does have a follow- up with Neurology scheduled at [facility]. He reports he is still drinking daily. He is not feel like he wants to stop drinking at this time. He does not want to go to physical therapy at this time until he figures out what is actually wrong with him. I suggested that he may be unsteady on his feet with ataxic gait and the falls due to alcohol dependency and chronic alcohol intake/consumption he also scored high on his PHQ-9 score although patient not interested in any referrals to therapist, psychiatrist. He denies any SI or HI or any auditory or visual hallucinations or thoughts of self-injury. Social History - Long-standing history of alcohol use with continued consumption. - Reports occasional falls and lack of recent formal engagement in physical therapy. - Lives independently and manages intake of multiple supplements focusing on regaining nutritional balance. Review of Systems - Ear, Nose, Throat: Reports sore throat, gagging sensation, vomiting triggered by gagging. - Neurological: Denies recent dizziness; reports history of falls. Physical Exam Appearance: Alert. Oriented X3. No acute distress. Head: Normal external exam. Normocephalic. Atraumatic. Eyes: Pupils are equal, round, and reactive to light. Extraocular movements intact. Conjunctiva and sclera normal. Eyelids normal. Ears: External auditory canal normal. Tympanic membranes normal. Throat: Uvula slightly swollen. Moist mucous membranes. No tonsillar enlargement noted. Neck: Normal inspection. Neck supple. Full range of motion. No adenopathy. Thyroid Normal. No meningeal signs. No neck mass noted. Cardiovascular: Normal heart rate and rhythm. Heart sound normal. No murmurs noted. Pulses normal throughout. Respiratory: No respiratory distress. Painless inspiration. Breath sounds normal. No wheezes/rales/rhonchi noted. Chest nontender. No accessory muscle usage noted or decreased air movement noted. Abdomen: Soft and nontender. Bowel sounds normal in all 4 quadrants. No distention noted. No organomegaly noted. No visible injury noted. Back: No costovertebral angle tenderness. Full range of motion noted. Skin: Skin warm and dry. Normal skin color. Normal skin turgor. No rashes/lesions/lacerations noted. Extremities: Extremities exhibit normal range of motion. Extremities nontender. Neuro: Oriented X 3. No motor deficit. No sensory deficit. Reflexes normal. Ataxic gait utilizing walker. Results - Labs: Elevated ALT at 58, AST at 190, total bilirubin at 3.1, direct bilirubin at 1.2; low blood magnesium requiring supplementation. - Imaging: Abdominal ultrasound revealed fatty liver changes indicative of respiratory physician tony alcohol use. - Other diagnostics: Previously had imaging indicating a cyst-like structure in the brain
[2025-01-05 09:20] VITALS: BP 130/78; PULSE 82; TEMP 36.5; O2SAT 96; BMI 35.0
--- OUTSIDE RECORDS SUMMARY | 2025-01-05 09:45 | XMS_ITS | Clinical Summary ---
Author Organization [facility] Address [address] [place] [address] Care Team Providers Care Stocking Inspector Name Role Phone Tyrone Arreola DO Primary Care Provider [phone] Encounters Date Type Department Care Team Description 12/28/[address] [place] [address] Gi Hall MD from Last 3 Months Social History Tobacco Use Types Packs/Day Years Used Date Smoking Tobacco: Never Assessed Sex and Gender Information Value Date Recorded Sex Assigned at Not on file Legal Sex Male 12:02 PM EST Gender Identity Not on file Sexual Orientation Not on file Plan of Treatment Health Maintenance Due Date Last Done Comments DTaP,Tdap,and Td Vaccines (1 - Tdap) 1974 Pneumococcal Vaccine: 50+ Ye ars (1 of 1 - PCV) 2005 Zoster Vaccines (1 of 2) 2005 COVID-19 Vaccine ( - 2023-2 5 season) 2024 Influenza Vaccine (#1) 2024 Abdominal Aortic Aneurysm (A AA) Screen 12/29/2024 Cholesterol Screening (Lipid Panel) 12/29/2024 Colorectal Cancer Screening: Colonoscopy 12/29/2024 Depression Screening 12/29/2024 Falls Risk Assessment 12/29/2024 Hepatitis C Screening 12/29/2024 Social Influencers of Health Screening 12/29/2024 RSV Immunization Adult Patie nts (1 - 1-dose 75+ series) 2030 HIB Vaccines Aged Out No longer eligi ble based on patient's age to complete this topic HPV Vaccines Aged Out No longer eligi ble based on patient's age to complete this topic Hepatitis A Vaccines Aged Out No long er eligible based on patient's age to complete this topic Hepatitis B Vaccines Aged Out No long er eligible based on patient's age to complete this topic IPV Vaccines Aged Out No longer eligi ble based on patient's age to complete this topic MMR Vaccines Aged Out No longer eligi ble based on patient's age to complete this topic Meningococcal ACWY Vaccine Aged Out N o longer eligible based on patient's age to complete this topic Meningococcal B Vacine Aged Out No lo nger eligible based on patient's age to complete this topic RSV Immunization Patients Un aram 20 months Aged Out No longer eligible b ased on patient's age to complete this topic Varicella Vaccines Aged Out No longer eligible based on patient's age to complete this topic Care Teams Stocking Inspector Relationship Specialty Start Date End Date yTrone Arreola DO [address] [place] [phone] PCP - General Internal Medicine 04/01/18
== END 2025-01-05 09:49 | disposition home or self-care (01) ==
LOC: HO.HMCSH 08:59
PROVIDERS: PCP Internal Medicine; Visit Provider Physician Assistant Medical
DX: R27.0 Ataxia, unspecified (principal); Q03.1 Atresia of foramina of Magendie and Luschka; R97.20 Elevated prostate specific antigen [PSA]; F10.20 Alcohol dependence, uncomplicated; R26.9 Unspecified abnormalities of gait and mobility; G31.9 Degenerative disease of nervous system, unspecified; R74.8 Abnormal levels of other serum enzymes; F32.A Depression, unspecified; R29.6 Repeated falls; E83.42 Hypomagnesemia; E53.8 Deficiency of other specified B group vitamins; E51.9 Thiamine deficiency, unspecified

== ENCOUNTER → 2025-01-05 08:59 | Outpatient (BNVA) | payer MEDICARE, SELFPAY | PROVIDERS: PCP Internal Medicine; Visit Provider Physician Assistant Medical | DX: R27.0 Ataxia, unspecified (principal); Q03.1 Atresia of foramina of Magendie and Luschka; R97.20 Elevated prostate specific antigen [PSA]; F10.20 Alcohol dependence, uncomplicated; G31.9 Degenerative disease of nervous system, unspecified; R74.8 Abnormal levels of other serum enzymes; F32.A Depression, unspecified; E83.42 Hypomagnesemia; E53.8 Deficiency of other specified B group vitamins; E51.9 Thiamine deficiency, unspecified | CPT/HCPCS: 96127; 99212 ==

== ENCOUNTER 2025-01-14 10:20 | Outpatient (REF) | payer MEDICARE, SELFPAY ==
--- OUTSIDE RECORDS SUMMARY | 2025-01-14 11:08 | XMS_ITS | Clinical Summary ---
Author Organization [facility] Address [address] [place] [address] Care Team Providers Care Straight Cutter Machine Name Role Phone Tyrone Arreola DO Primary Care Provider [phone] Encounters Date Type Department Care Team Description 12/28/[address] [place] [address] Gi Hall MD from Last [...] Vaccine ( - 2023-2 5 season) 2024 Abdominal Aortic Aneurysm (A AA) Screen 12/29/2024 Cholesterol Screening (Lipid Panel) 12/29/2024 Colorectal Cancer Screening: Colonoscopy 12/29/2024 Depression Screening 12/29/2024 Falls Risk Assessment 12/29/2024 Hepatitis C Screening 12/29/2024 Social Influencers of Health Screening 12/29/2024 Influenza Vaccine (Season Ended) 2025 RSV Immunization Adult Patie nts (1 - [...] age to complete this topic Meningococcal B Vaccine Aged Out No l onger eligible based on patient's age to complete this topic RSV Immunization Patients Un aram 20 months Aged Out No longer eligible b ased on patient's age to complete this topic Varicella Vaccines Aged Out No longer eligible based on patient's age to complete this topic Care Teams Straight Cutter Machine Relationship Specialty Start Date End Date Tyrone Arreola DO [address] [place] [phone] PCP - General Internal Medicine 04/01/18
[2025-01-14 13:41] LABS: Alanine Aminotransferase 62 U/L (0-40); Alkaline Phosphatase 76 U/L (39-117); Anion Gap 14 (12-20); Aspartate Amino Transferase 143 U/L (5-37); Bilirubin Direct 0.7 mg/dL (0.0-0.5); Bilirubin Total 1.8 mg/dL (0.0-1.0); Blood Urea Nitrogen 4 mg/dL (9-16); Calcium 8.9 mg/dL (8.4-10.2); Carbon Dioxide 32 mmol/L (22-29); Chloride 95 mmol/L (96-108); Estimated Glomerular Filt Rate > 60; Glucose Random 87 mg/dL (60-115); Magnesium 1.8 mg/dL (1.6-2.6); Potassium 4.2 mmol/L (3.3-5.1); Sodium 137 mmol/L (135-145); Total Protein 6.7 g/dL (6.5-8.0)
[2025-01-14 14:10] LABS: Folate 14.4 ng/mL (> or = 4.0); Vitamin B12 494 pg/mL (200-900)
[2025-01-17 23:43] LABS: Zinc 74 mcg/dL (60-130)
[2025-01-25 15:18] LABS: Vitamin B1 39 nmol/L (8-30)
== END 2025-01-14 10:21 | disposition home or self-care (01) ==
LOC: HO.HMGCLDS 10:20
PROVIDERS: PCP Physician Assistant Medical; Visit Provider Physician Assistant Medical
DX: Z00.00 Encounter for general adult medical examination without abnormal findings (principal)
CPT/HCPCS: 36415; 80053; 82248; 82607; 82746; 83735; 84425; 84630

== ENCOUNTER 2025-01-21 09:17 | Outpatient (AMB) | payer MEDICARE, SELFPAY ==
--- NOTE | 2025-01-21 09:18 | MHC.OFFVIS ---
Intake Visit Reasons: elevated PSA Intake Note: New patient presents today for initial visit for elevated PSA Total PSA: 8.2 Free PSA: 2.0 Urology Medication:none Blood Thinner:none Antibiotic Allergies:none PVR: 527ml Allergies No Known Allergies Allergy (Verified 01/21/25 09:31) seasonal Allergy (Unknown, Uncoded 01/05/25 12:33) Itchy Eyes PFSH Medical History Thiamine deficiency Low folic acid Hypomagnesemia Falls Elevated liver enzymes Cerebral atrophy Ataxia Persistent Paddy pouch cyst Abnormal liver enzymes Thrombocytopenia Elevated PSA, less than 10 ng/ml Obesity (BMI 30-39.9) Alcohol use disorder, moderate, dependence Gait disorder Elevated PSA History of gastritis Degenerative disc disease, lumbar Depression Cervical spondylosis Osteoarthritis Mild hypercholesterolemia Hypertension Opioid use disorder Opioid use disorder Surgical History History of colonoscopy (~11/23/14) History of neck surgery History of back surgery Results Reviewed Results Reviewed: Date of Service: 12/24/24 EXAMINATION: US ABDOMEN HISTORY: R74.8 - Abnormal levels of other serum enzymes TECHNIQUE: Real-time grayscale ultrasound imaging of the abdomen was performed and images were reviewed. COMPARISON: Comparison is made with the prior examination dated 03/21/2020. FINDINGS: Liver: The right lobe of the liver measures 14.0 cm in size. The left lobe of the liver is largely obscured. The liver demonstrates heterogeneous increased echotexture, consistent with steatosis. Evaluation for masses is extremely limited. Gallbladder and biliary tree: The gallbladder is unremarkable, without evidence of calculi, wall thickening, or pericholecystic fluid. There is no sonographic Yuan sign. The common bile duct is not visualized. Kidneys: The right kidney measures 11.5 cm in length. The left kidney measures 12.2 cm in length. The kidneys are unremarkable, without evidence of masses, hydronephrosis, or calculi. Pancreas: The pancreas is obscured by bowel gas. Spleen: The spleen is normal in size and contour, measuring 9.3 cm in length. Abdominal aorta and inferior vena cava: The abdominal aorta and IVC are not well visualized. There is no free fluid in the abdomen. IMPRESSION: Markedly limited examination as described. Hepatic steatosis. Assessment & Plan Assessment & Plan Orders: Orders AMB Urinalysis Automated 01/21/25 Z13.9 - Encounter for screening, unspecified Coding
--- OUTSIDE RECORDS SUMMARY | 2025-01-21 09:46 | XMS_ITS | Clinical Summary ---
Author Organization [facility] Address [address] [place] [address] Care Team Providers Care Linux Server Engineer Name Role Phone Tyrone Arreola DO Primary Care Provider [phone] Encounters Date Type Department Care Team Description 12/28/[address] [place] [address] Gi Hall MD from Last [...] age to complete this topic Care Teams Linux Server Engineer Relationship Specialty Start Date End Date Tyrone Arreola DO [address] [place] [phone] PCP - General Internal Medicine 04/01/18
== END 2025-01-21 10:34 | disposition home or self-care (01) ==
LOC: HO.HUSH 09:17
PROVIDERS: PCP Internal Medicine; Visit Provider Urology
DX: Z13.9 Encounter for screening, unspecified (principal)

== ENCOUNTER → 2025-01-21 09:17 | Outpatient (BNVA) | payer MEDICARE, SELFPAY | PROVIDERS: PCP Internal Medicine; Visit Provider Urology | DX: R97.20 Elevated prostate specific antigen [PSA] (principal); N40.0 Benign prostatic hyperplasia without lower urinary tract symptoms; R26.9 Unspecified abnormalities of gait and mobility; R74.8 Abnormal levels of other serum enzymes; F10.20 Alcohol dependence, uncomplicated | CPT/HCPCS: 81003; 99202 ==

== ENCOUNTER 2025-02-20 19:11 | Inpatient (IN) | payer MEDICARE, SELFPAY ==
[2025-02-20] VITALS (26 sets, daily range): BP systolic 56–110; BP diastolic 27–76; PULSE 76–105; RESP 10–21; TEMP 36.3–36.8; O2SAT 91–100; BMI 36.5; BMI 36.7
--- NOTE | ~2025-02-20 | CT_ITS ---
EXAMINATION: CT ABDOMEN PELVIS WITHOUT THEN WITH IV CONTRAST HISTORY: gi bleed COMPARISON: None. TECHNIQUE: CT scan of the abdomen and pelvis was performed before and after the intravenous administration of 80 mL Omnipaque 350. Post contrast imaging was performed in the arterial and delayed phases to evaluate for GI bleeding. Coronal and sagittal reformatted images were generated and reviewed. Oral contrast material was not administered per department protocol. This CT exam was performed with one or more of the following dose reduction techniques: automated exposure control, adjustment of the mA and/or kV according to patient size, use of iterative reconstruction technique. DLP: 2214 mGy-cm ABDOMEN: The examination is limited as the patient's arms were scanned at his sides resulting in streak artifact. LOWER CHEST: There is airspace opacity with air bronchograms in the right lower lobe, compatible with atelectasis or pneumonia. There is linear subsegmental atelectasis at the left lung base. There is no pleural effusion. CARDIOVASCULATURE: There is left atrial enlargement. There is severe coronary arterial calcification. There is no pericardial effusion. LIVER: The liver is normal in size and contour. No liver mass is identified. The hepatic and portal veins are patent. GALLBLADDER / BILE DUCTS: The gallbladder is unremarkable. There is no intra or extrahepatic biliary ductal dilatation. SPLEEN: The spleen is normal in size. No focal splenic lesion is identified. PANCREAS: The pancreas is unremarkable in appearance. ADRENAL GLANDS: Within normal limits. KIDNEYS/RETROPERITONEUM: No renal calculi are identified. There is no hydronephrosis. No renal masses are identified. LYMPH NODES: No abdominal or pelvic lymphadenopathy. VASCULATURE: The abdominal aorta demonstrates atherosclerotic calcification, but is normal in caliber. MESENTERY/PERITONEUM: No free fluid. No masses. There is no free intraperitoneal gas. STOMACH: The stomach is collapsed, limiting evaluation. SMALL BOWEL: There is mild haziness of the periduodenal fat could be secondary to ulcer disease. The remainder of the small bowel is unremarkable. COLON: Evaluation of the colon is limited due to the presence of intraluminal high density material throughout the colon. No definite contrast extravasation is seen. APPENDIX: Normal. URINARY BLADDER/PELVIC ORGANS: There is marked irregular wall thickening of the urinary bladder. A Escudero catheter is seen in the urinary bladder. Evaluation is limited by streak artifact from a right total hip arthroplasty. There are calcifications of the prostate. BONES / SOFT TISSUES: There is severe degenerative disc disease of the spine. CT/CT gi bleed abd pel wo/w IVcon IMPRESSION: 1. Limited examination due to multiple technical factors as described above. No definite contrast extravasation is seen to suggest active GI bleeding. 2. Haziness of the periduodenal fat which could be secondary to ulcer disease. Correlation with upper endoscopy is suggested. 3. Marked irregular wall thickening of the urinary bladder which could indicate infection or neoplasm. Clinical correlation is recommended. Electronically signed by: Tyrone Joy MD 02/22/2025 03:50 PM EDT
--- NOTE | ~2025-02-20 | XR_ITS ---
CLINICAL HISTORY: hypotension fever ? PNA 1 view chest x-ray Comparison: 12/19/2022 Findings: Right basilar subsegmental atelectasis. Chronic right hemidiaphragm elevation noted. Left lung clear. Heart size normal. No acute bony abnormalities. Old right clavicle fracture deformity. Impression: Right basilar subsegmental atelectasis This document has been electronically signed by: Jorge Bowie MD on 02/22/2025 21:21:41
--- NOTE | ~2025-02-20 | XR_ITS ---
CLINICAL HISTORY: ? perf post EGD Abdomen one view Comparison: None Findings: Limited single upright image of the right upper quadrant. No free air is identified on this single image. No bowel distention in visualized portions of the abdomen. Right basilar atelectasis is noted. Impression: No acute process on limited study This document has been electronically signed by: Jorge Bowie MD on 02/22/2025 21:21:36
--- NOTE | ~2025-02-20 | IR_ITS ---
History: Patient with acute upper GI bleed. Presents for embolization. Status post endoscopy with epinephrine spray of duodenal ulcer. Patient is now rebleeding on pressor support. Procedures performed: 1. Ultrasound-guided catheterization of the right common femoral artery. 2. Catheterization of the celiac artery with selective arteriography. 3. Catheterization of the gastroduodenal artery with selective arteriography and embolization. 4. Catheterization of the superior mesenteric artery with selective arteriography and embolization. Physician: Kevin Mayes MD Anesthesia: The procedure was done under moderate sedation with a dedicated nurse for monitoring of vital signs. Specimen: None Drain: None Estimated blood loss: Minimal Complications: None Procedure in detail: Informed and written consent was obtained and placed in the chart. The patient was positioned supine on the angiography table sterile preparation of both groins. Ultrasound of the right groin showed a patent right common femoral artery. Under ultrasound, 1% lidocaine was injected subcutaneously and extended to the artery. A small incision was made in the skin with a #11 blade. Through the incision and under ultrasound guidance with permanent recordings and direct visualization of needle entry into the artery, the right common femoral artery was catheterized in a retrograde fashion. A 5 Georgian sheath was placed. A Sos 2 catheter was used to catheterize the celiac artery with selective arteriography demonstrating no definite active extravasation or arterial bleed. The gastroduodenal artery was then selected with a 2.4 Georgian microcatheter. Angiogram does not demonstrate any active extravasation, however, there is retrograde flow suggesting celiac stenosis. We then catheterized the superior mesenteric artery. Angiogram demonstrates large branch vessels leading to the GDA and gastroepiploic arteries. We then recatheterized the celiac artery and repositioned the microcatheter into the lower gastroduodenal artery and then into the proximal gastroepiploic artery. Angiogram does not demonstrate any active extravasation. However, given patient's clinical presentation, we elected to prophylactically embolize. The proximal right gastroepiploic and additional small branch vessel to duodenum was embolized as well as the middistal gastroduodenal artery using coils ranging from 5-7 mm. Angiogram demonstrates successful embolization. We then catheterized the superior mesenteric artery with a 5 Georgian Cobra catheter. We sequentially selected to branch vessels leading towards the gastroduodenal artery and each of these branches were embolized distally using 5 mm coils. Completion angiography demonstrates diminished flow to these vessels. . Given these findings, we elected to terminate the procedure. The catheters were removed. An angiogram through the sheath demonstrates no evidence of arterial injury at the access site with good flow down the leg. The sheath was removed and hemostasis was achieved with a Celt device and manual compression. A sterile dressing was applied. The patient tolerated the procedure well with no immediate complications. IR/IR embolization hemorrhage Impression: Angiogram with attention to duodenum does not demonstrate any active extravasation or arterial abnormality. Given clinical concern of continued bleeding, we prophylactically embolized the gastroduodenal artery and proximal right gastroepiploic artery. Plan: Continued ICU monitoring. Monitor right groin access site for hematoma Electronically signed by: Kevin Mayes MD 02/23/2025 04:17 PM EDT RP
--- NOTE | 2025-02-20 19:34 | ECG_ITS ---
Test Reason : weakness Blood Pressure : */* mmHG Vent. Rate : 101 BPM Atrial Rate : * BPM P-R Int : * ms QRS Dur : 94 ms QT Int : 410 ms P-R-T Axes : * -4 60 degrees QTcB Int : 531 ms Atrial fibrillation with rapid ventricular response Nonspecific T wave abnormality Abnormal ECG When compared with ECG of 19-Dec-2022 14:47, Atrial fibrillation has replaced Sinus rhythm QRS axis Shifted right Nonspecific T wave abnormality now evident in Inferior leads QT has lengthened Referred By: Rekha Thomason Electronically Signed By: Josiah Boucher
[2025-02-20 19:42] LABS: OBS Int Ctl Valid YES
[2025-02-20 19:43] LABS: OBS1 POSITIVE (NEGATIVE)
--- NOTE | 2025-02-20 19:48 | ED.GIBLEED ---
HPI - GI Bleed General Chief complaint: GI Bleed Stated complaint: no fall , slipped onto toilet, bloody stool Time Seen by Provider: 02/20/25 19:37 Source: patient and family () Mode of arrival: EMS Limitations: no limitations History of Present Illness ED Provider: Dr. Pacheco Corbett HPI Narrative: 69-year-old male with a history of hypertension, hyperlipidemia, neuropathy, alcohol use disorder-drinks 5 white claws per day, takes ibuprofen 800 mg twice a day for chronic pain, opiate use disorder, DJD lumbar spine, depression, presents with lower GI bleed and hypotension. Patient has had dark stools for 3 days. Also had one dark stools last week. Patient had a large dark bowel movement prior to coming to the emergency department, slipped out of the toilet and was caught by his prior to striking his head. Paramedics report a large, tarry stool. He had a large dark, black, tarry stool in the emergency department. Patient has been having epigastric pain and has been taking Tums with no relief. Patient was hypotensive in the emergency department with a blood pressure of 73/45 with an elevated heart rate of 105. Related Data Home Medications ?Medication ?Instructions ?Recorded ?Confirmed amlodipine 10 mg-benazepril 40 mg 1 cap PO DAILY 08/01/20 02/21/25 capsule atorvastatin 40 mg tablet 40 mg PO DAILY 11/30/24 02/21/25 cholecalciferol (vitamin D3) 50 50 mcg PO DAILY 11/30/24 02/21/25 mcg (2,000 unit) disintegrating tablet folic acid 800 mcg tablet 0.8 mg PO DAILY 01/05/25 02/21/25 sertraline 25 mg tablet 25 mg PO DAILY 02/21/25 02/21/25 Previous Rx's ?Medication ?Instructions ?Recorded ibuprofen 800 mg tablet 800 mg PO Q8H #30 tabs 11/30/24 thiamine HCl (vitamin B1) 100 mg 100 mg PO DAILY vitamin b1 12/13/24 capsule deficiency #90 caps magnesium oxide 400 mg (241.3 mg 400 mg PO DAILY #90 tabs 02/01/25 magnesium) tablet Allergies Allergy/AdvReac Type Severity Reaction Status Date / Time seasonal Allergy Unknown Itchy Eyes Uncoded 02/20/25 19:33 Review of Systems Review of Systems: Yes all other systems are reviewed and are negative [facility] Past Medical History [facility] Narrative: Social history: He is . His is here in the emergency department. Denies tobacco use. He drinks 5 white claws per day. He denies drug use. Medical History Thiamine deficiency Low folic acid Hypomagnesemia Falls Elevated liver enzymes Cerebral atrophy Ataxia Persistent Paddy pouch cyst Abnormal liver enzymes Thrombocytopenia Elevated PSA, less than 10 ng/ml Obesity (BMI 30-39.9) Alcohol use disorder, moderate, dependence Gait disorder Elevated PSA History of gastritis Degenerative disc disease, lumbar Depression Cervical spondylosis Osteoarthritis Mild hypercholesterolemia Hypertension Opioid use disorder Opioid use disorder Surgical History History of colonoscopy (~11/23/14) History of neck surgery History of back surgery Social History Social History Household Members: Spouse Housing: House Do you presently have visiting nurse or other home services: Yes ( is his COMMERCIAL LOAN ADMINISTRATOR) Alcohol intake: current Alcohol intake frequency: 3 or more drinks per day Alcohol type: hard liquor Patient Tobacco Use Status: Former Tobacco user Smoked in Last 30 Days: No Use of substances other than those prescribed or required for medical reasons: No Have you been hit, kicked, punched, or otherwise hurt by someone within the past year? If so, by whom?: No Do you feel safe in your current relationship?: Yes Is there a partner from a previous relationship who is making you feel unsafe now?: No Are you made to feel afraid or neglected: No [facility] Practices: declined Advance Directives: No Advance Directives Information Provided: Yes Do you have a plan to hurt others: No Plan Recently lost weight without trying: Unsure How much weight loss: 2-13 pounds Eating poorly because of decreased appetite: No Nutrition screen score: 3 Nutrition Risks: Difficulty chewing and On aspiration precautions Poor oral hygiene: Yes Physical Exam Vital Signs: Vital Signs: Last Vital Signs Temp 98.4 F 02/21/25 10:00 Pulse 75 02/21/25 10:00 Resp 18 02/21/25 10:00 BP 104/67 02/21/25 10:00 Pulse Ox 99 02/21/25 10:00 O2 Del Method Nasal Cannula 02/21/25 10:00 O2 Flow Rate 2 02/21/25 10:00 BMI result Body Mass Index 36.5 Vital signs revealed low blood pressure 73/45, elevated heart rate of 105. Exam: General: Awake, alert in no distress, anxious Head: Normocephalic, atraumatic EENT: PERRL, Lids normal, sclera normal, conjunctiva normal, nose normal , ears normal, throat without erythema or exudates Neck: Supple, no adenopathy Lung: breath sounds symmetric, no wheezing, rales or rhonchi Chest: symmetric movement, nontender Heart: regular rate and rhythm, normal S1, S2 no murmurs or rubs Abdomen: soft, mild to moderate epigastric tenderness, nondistended, normal bowel sounds Rectal: dark black stools Back: no vertebral tenderness, no CVAT Extremities: no deformities, moves all extremities symmetrically Neuro: Awake, alert, oriented, normal speech, cranial nerves intact, moves all extremities symmetrically Psych: Pleasant, cooperative Medications Administered Generic Name Dose Route Start Last Admin Trade Name Freq PRN Reason Stop Dose Admin Pantoprazole Sodium 40 mg 02/21/25 09:00 02/21/25 09:57 Pantoprazole Sodium 40 Mg/10 Ml Vial IVPUSH 40 mg BID DYAN Administration Discontinued Medications Generic Name Dose Route Start Last Admin Trade Name Freq PRN Reason Stop Dose Admin Magnesium Sulfate 2 gm in 50 mls @ 25 mls/hr 02/20/25 20:33 02/20/25 22:48 Magnesium Sulfate/H2o IV 02/20/25 22:32 Infused ONCE ONE Infusion Potassium Chloride 10 meq in 100 mls @ 100 mls/hr 02/21/25 01:00 02/21/25 05:21 Potassium Chloride/H20 IV 02/21/25 04:59 Infused Q1H DYAN Infusion Pantoprazole Sodium 80 mg 02/20/25 19:43 02/20/25 19:59 Pantoprazole Sodium 40 Mg/10 Ml Vial IVPUSH 02/20/25 19:44 80 mg ONCE ONE Administration Medical Decision Making Medical Decision Making MDM Narrative: 69-year-old male with a history of hypertension, hyperlipidemia, neuropathy, alcohol use disorder-drinks 5 white claws per day, takes ibuprofen 800 mg twice a day for chronic pain, opiate use disorder, DJD lumbar spine, depression, presents with lower GI bleed and hypotension. Patient has had dark stools for 3 days. Also had one dark stools last week. Patient had a large dark bowel movement prior to coming to the emergency department, slipped out of the toilet and was caught by his prior to striking his head. Paramedics report a large, tarry stool. He had a large dark, black, tarry stool in the emergency department. Patient has been having epigastric pain and has been taking Tums with no relief. Patient was hypotensive in the emergency department with a blood pressure of 73/45 with an elevated heart rate of 105. Vital signs revealed that he was hypotensive with a blood pressure of 73/45 and tachycardic with a heart rate of 105. Patient had moderate epigastric tenderness and dark black stool on rectal exam. Differential diagnosis: ?Includes but is not limited to gastric bleed, duodenal bleed, esophageal bleed, anemia, electrolyte abnormalities Course: 21:49 My interpretation patient's laboratory evaluation is as follows: WBCs normal 7800. H&H low at 10.3 and 27.8. Platelet count normal at 185,000. Patient had a significant drop in his H&H compared to 12/03/2024 when his H&H was 17 and 49.6. PT/INR was 13.4 and 1.2-this has only slightly elevated suggesting that the patient does not have significant liver disease. PTT was normal at 24.9. Sodium low 122, chloride low 83, BUN elevated 35, creatinine was normal at 0.94. Elevated BUN in his secondary to an upper GI bleed. Magnesium was low 1.4-secondary to his alcohol use disorder. Bilirubin elevated 1.1. AST elevated 51. Total protein was low 5.9 and albumin is low 3.4. Occult stool test was positive. Alcohol was below detectable limits. COVID-19, influenza, RSV were negative. Patient's presentation is consistent with a significant upper GI bleed with a significant loss of blood causing hypotension and tachycardia. I suspect that the patient has lost at least 4 and possibly more units of blood from his GI bleed over the past several days. Patient was initially ordered to get O negative blood x2 units. Patient's blood type is O-positive and he received 2 more units of O positive blood. Patient received 2 units of FFP and and I ordered a unit of frozen platelets-not available at this time. Patient was also treated for upper GI bleed with Protonix (pantoprazole) 80 mg IV. Patient was also given magnesium 2 g IV for his low magnesium. I did discuss treatment with our covering quarter supervisor Dr. Byers. He recommended that the patient be admitted to the intensive care unit for further treatment especially given the significance of his GI bleed. He recommended against octreotide since the patient does not have known Esophageal varices. I did discuss the patient's presentation over tiger text with our quantitative strategy analyst, Dr. Johnson and we do not have a unit bed therefore I discuss transfer with [facility] transfer line and they are going to do a bed search through their facilities to find an ICU bed. 22:33 The nursing desk clerks supervisor contacted the ED and they were able to get an intensive care unit nurse to come in to care for this patient and I did inform the family. I did cancel the [facility] bed search. The [facility] does not have any platelets but they are going to try to get a unit of platelets for the patient. I will repeat the patient's H&H at this time. Patient was unable to urinate and had 770 cc of urine in his bladder therefore a Escudero catheter was ordered to be placed by nursing. I did discuss the patient's presentation over tiger text with the quantitative strategy analyst, Dr. Johnson and the patient is accepted into the intensive care unit. I also discuss the patient with the ICU quantitative strategy analyst, Nurse Practitioner Emelina Obregon. 23:03 Repeat H&H was 12.9 in 35.0 which is significantly improved compared to initial H&H of 10.3 and 27.8. Patient's blood pressure improved to 106/60. Admission/Observation Consideration of admission/observation: Escalation of care including admission/observation considered (Yes) Consult Healthcare Provider Management of the patient was discussed with: Hospitalist and Clerk General (Dr. Byers) Lab Data MDM Lab Attestation statement: I reviewed the patient's lab results. 02/21/25 05:52 02/21/25 05:52 Labs: Lab Results 02/20/25 02/20/25 02/20/25 Range/Units 19:38 19:55 21:58 WBC 7.8 (4.8-10.8) X10*3/uL RBC 2.89 L D (4.60-5.80) X10*6/uL Hgb 10.3 L D (14.0-18.0) g/dl Hct 27.8 L D (42.0-52.0) % MCV 96.2 (80.0-98.0) fL MCH 35.6 H (27.0-33.0) pg MCHC 37.1 H (31.0-36.0) g/dl RDW 11.3 (11.0-16.0) % Plt Count 185 D (160-400) X10*3/uL MPV 10.3 (9.4-12.4) fL Immature Gran % (Auto) 0.4 (0.0-0.4) % Neut % (Auto) 75.5 H (45-73) % Lymph % (Auto) 14.1 L (20-40) % [place] % (Auto) 9.7 (2-11) % Eos % (Auto) 0.0 (0-4) % Baso % (Auto) 0.3 (0-2) % Lymph # (Auto) 1.1 L (1.2-4.9) X10*3/uL [place] # (Auto) 0.8 (0.1-1.2) X10*3/uL Eos # (Auto) 0.0 (0.0-0.4) X10*3/uL Baso # (Auto) 0.0 (0.0-0.2) X10*3/uL Abs Immat Gran (auto) 0.03 (0.00-0.03) X10*3/uL Absolute Neuts (auto) 5.9 (2.0-8.3) x10*3/uL Absolute Nucleated RBC 0.000 (0.0-0.012) X10*3/uL Nucleated RBC % (auto) 0.0 (0.0-0.2) /100WBC PT 13.4 H (10.9-12.4) SEC INR 1.2 H (0.9-1.1) APTT 24.9 L (26.0-36.8) SEC Sodium 122 L (135-145) mmol/L Potassium 3.3 D (3.3-5.1) mmol/L Chloride 83 L (96-108) mmol/L Carbon Dioxide 22 (22-29) mmol/L Anion Gap 20 (12-20) BUN 35 H (9-16) mg/dL Creatinine 0.94 (0.5-1.4) mg/dL Estim Creat Clear Calc 88.7 Estimated GFR > 60 Random Glucose 132 H (60-115) mg/dL Calcium 8.4 (8.4-10.2) mg/dL Magnesium 1.4 L* 1.7 (1.6-2.6) mg/dL Total Bilirubin 1.1 H (0.0-1.0) mg/dL AST 51 H (5-37) U/L ALT 25 (0-40) U/L Alkaline Phosphatase 65 (39-117) U/L Troponin I High Sens 5.6 (<3.5-35.0) ng/L Total Protein 5.9 L (6.5-8.0) g/dL Albumin 3.4 L (3.5-5.0) g/dL Stool Occult Blood POSITIVE (NEGATIVE) Ethyl Alcohol < 10 mg/dL Influenza Type A (PCR) NEGATIVE (Negative) Influenza Type B (PCR) NEGATIVE (Negative) RSV RNA Qual (PCR) NEGATIVE (Negative) SARS-CoV-2 RNA (RT-PCR) NEGATIVE (Negative) Blood Type O Positive Antibody Screen NEGATIVE Crossmatch See Detail Independent Historian Clinical information obtained from an independent historian. History obtained from or confirmed by: Spouse Chronic Conditions Patient?s care impacted by: Hypertension and Other (Alcohol use disorder, chronic pain) Critical Care Time Critical Care Time Critical Care Time: Yes Total Critical Care Time: 120 Attestation: Critical Care: The patient was critically ill with a high probability of imminent or life threatening deterioration. I spent greater than 30 minutes of discontinuous time evaluating the patient,delivering critical care at the bedside, discussing and evaluating pertinent data with consultants. Critical care time does not include time spent performing separately billable procedures or teaching. Total time spent performing critical care was 120 minutes. Discharge Plan Discharge Clinical Impression: Acute upper gastrointestinal bleeding, Acute blood loss anemia, Acute hypotension, Alcohol use disorder Patient Disposition: Admitted As Inpatient Discharge Date/Time: 02/20/25 23:42
[2025-02-20] MEDS: Pantoprazole Sodium 40 MG/10 ML VIAL 80 MG IVPUSH (19:59)
--- OUTSIDE RECORDS SUMMARY | 2025-02-20 20:03 | XMS_ITS | Clinical Summary ---
Author Organization [facility] Address [address] [place] [address] Care Team Providers Care Car Whacker Name Role Phone Tyrone Arreola DO Primary Care Provider [phone] Encounters Date Type Department Care Team Description 12/28/[address] [place] [address] Gi Hall MD from Last [...] age to complete this topic Care Teams Car Whacker Relationship Specialty Start Date End Date Tyrone Arreola DO [address] [place] [id number] PCP - General Internal Medicine 04/01/18
[2025-02-20 20:08] LABS: MANUAL DIFF FLAG NO
[2025-02-20 20:10] LABS: Basophils Percent Auto 0.3 % (0-2); Hematocrit 27.8 % (42.0-52.0); Hemoglobin 10.3 g/dl (14.0-18.0); Imm Gran Abs Auto 0.03 X10*3/uL (0.00-0.03); Imm Gran Pct Auto 0.4 % (0.0-0.4); Lymphocytes Absolute Auto 1.1 X10*3/uL (1.2-4.9); Lymphocytes Percent Auto 14.1 % (20-40); Mean Corpuscular HGB Conc 37.1 g/dl (31.0-36.0); Mean Corpuscular Hemoglobin 35.6 pg (27.0-33.0); Mean Corpuscular Volume 96.2 fL (80.0-98.0); Mean Platelet Volume 10.3 fL (9.4-12.4); Monocytes Absolute Auto 0.8 X10*3/uL (0.1-1.2); Monocytes Percent Auto 9.7 % (2-11); Neutrophils Absolute Auto 5.9 x10*3/uL (2.0-8.3); Neutrophils Percent Auto 75.5 % (45-73); Platelet Count 185 X10*3/uL (160-400); Red Blood Count 2.89 X10*6/uL (4.60-5.80); Red Cell Distribution Width 11.3 % (11.0-16.0); White Blood Count 7.8 X10*3/uL (4.8-10.8)
[2025-02-20 20:15] LABS: INTERNATIONAL NORM RATIO 1.2 (0.9-1.1); Prothrombin Time 13.4 SEC (10.9-12.4)
--- NOTE | 2025-02-20 20:17 | PC.NURSE ---
Blood verified, admin delayed due setting up rapid infuser
[2025-02-20 20:30] LABS: Alanine Aminotransferase 25 U/L (0-40); Albumin Level 3.4 g/dL (3.5-5.0); Alkaline Phosphatase 65 U/L (39-117); Anion Gap 20 (12-20); Aspartate Amino Transferase 51 U/L (5-37); Bilirubin Total 1.1 mg/dL (0.0-1.0); Blood Urea Nitrogen 35 mg/dL (9-16); Calcium 8.4 mg/dL (8.4-10.2); Carbon Dioxide 22 mmol/L (22-29); Chloride 83 mmol/L (96-108); Creatinine Clr Calc Pharmacy 88.7; Estimated Glomerular Filt Rate > 60; Glucose Random 132 mg/dL (60-115); Magnesium 1.4 mg/dL (1.6-2.6); Potassium 3.3 mmol/L (3.3-5.1); Sodium 122 mmol/L (135-145); Total Protein 5.9 g/dL (6.5-8.0)
--- NOTE | 2025-02-20 20:30 | PC.NURSE ---
Patient presenting from home c/o loose dark diarrhea x days, weakness/dizziness syncopal episode in BR. Patient had large bloody diarrhea during triage, pressures low 60's/30's, dr. Uribe aware/to bedside. 2 units PRBCs emergent transfusion ordered, retrieved by Supriya ANDERS. Rapid infuser utilized, patient's BP w/ minor improvement 70's/40's provider made aware.
[2025-02-20 20:35] LABS: Troponin-I High Sensitivity 5.6 ng/L (<3.5-35.0)
[2025-02-20] MEDS: Magnesium Sulfate/H2O 2 GM/50 ML PIGGYBACK IV (20:49)
--- NOTE | 2025-02-20 20:54 | PC.NURSE ---
First 2 units of PRBCs completed infusing at 2034.
[2025-02-20 20:55] LABS: Partial Thromboplastin Time 24.9 SEC (26.0-36.8)
[2025-02-20 20:56] LABS: Ethanol < 10 mg/dL
[2025-02-20 21:14] LABS: Influenza A PCR NEGATIVE (Negative); Influenza B PCR NEGATIVE (Negative); Resp Syncy Virus RNA Qual PCR NEGATIVE (Negative); SARS COV2 PCR INHOUSE NEGATIVE (Negative)
--- NOTE | 2025-02-20 21:35 | PC.NURSE ---
3rd and 4th units of PRBCs transfused at 2125. FFP amy w/ RN Camilla.
--- NOTE | 2025-02-20 22:16 | PC.NURSE ---
Wound area noted while changing patient, provider made aware.
--- NOTE | 2025-02-20 22:27 | PC.NURSE ---
Spoke to lab, there are no cold store platets in house, blood bank is attempting to acquire some from another facility or [facility] will be contacted.
[2025-02-20 22:28] LABS: Magnesium 1.7 mg/dL (1.6-2.6)
--- NOTE | 2025-02-20 22:31 | MHC.EDTECH ---
ladder scan amount: 776mL
--- NOTE | 2025-02-20 22:44 | PC.NURSE ---
Both FFP completed. Bladder scanned showed 775 ccs in bladder, provider aware, 16F temp sensing lam placed.
--- NOTE | 2025-02-20 22:58 | PC.NURSE ---
Addendum entered by Angela Butcher RN 02/20/25 23:02: Provider aware. Original Note: Lab called, out of platelets and had to call other hospitals. Platelets will arrive for administration to pt in approx 60-90 min.
[2025-02-20 23:14] LABS: Appearance Urine Clear; Color Urine Yellow; Glucose Urine UA Negative (Negative); Leukocyte Esterase Urine Negative (Negative); Nitrite Urine Negative (Negative); Specific Gravity - Urine <= 1.005 (1.005-1.025); Urine Blood Negative (Negative); Urine Ketones Negative (Negative); Urine Protein Negative (Neg-Trace)
[2025-02-20 23:15] LABS: Hemoglobin 12.9 g/dl (14.0-18.0)
--- NOTE | 2025-02-20 23:15 | PC.NURSE ---
RN to RN report given to Christine, all questions answered, patient to be transferred over to the ICU, confirming patient does not need any imaging before transport.
[2025-02-20 23:28] LABS: Phosphorus 4.4 mg/dL (2.7-4.5)
--- NOTE | 2025-02-20 23:43 | PM.CCHP ---
History of Present Illness Date of Service: 02/20/25 Attending physician on admission: Jose Johnson Chief Complaint: GI Bleed Mr. Bennett is a 69-year-old male with a history of hypertension, hyperlipidemia, neuropathy, alcohol use disorder, hepatic steatosis, opiate use disorder, chronic pain, DJD lumbar spine, depression who was brought in by ambulance after near syncopal event while on the toilet. Paramedics reported a large, tarry stool. The patient had been having dark stools for 3 days. He has been taking Tums for epigastric pain with no relief. The patient drinks about a dozen alcoholic seltzers per day and takes ibuprofen 800 mg twice a day for chronic pain.? The patient states his last drink was at about 16:00 today. On arrival to the emergency room blood pressure was 73/45, heart rate 105, temp 97.7? F, O2 sat 93% on room air. Laboratory data significant for RBC 2.89, hemoglobin 10.3, hematocrit 27.8, PT 13.4, INR 1.2, PTT 24.9, sodium 122, potassium 3.3, chloride 83, BUN 35, glucose 132, magnesium 1.4, total bilirubin 1.1, AST 51, total protein 5.9, albumin 3.4.? UA negative for UTI.? Occult blood positive.? Ethyl alcohol less than 10. ED course: While in the emergency room the patient received 4 units red blood cells, 2 FFP, pantoprazole 80 mg, Mag sulfate 2 g. Platelet transfusion pending receipt from outside facility.? Review of Systems Review of Systems: Yes all other systems are reviewed and are negative Constitutional: Constitutional: Reports as per HPI Eyes: Eyes: Denies change in vision ENT: Reports dizziness Cardiovascular: Cardiovascular: Denies chest pain and Denies dyspnea Respiratory: Respiratory: Denies dyspnea Gastrointestinal: Gastrointestinal: Reports as per HPI Genitourinary: Genitourinary: Denies dysuria, Denies urinary frequency and Denies urinary urgency Musculoskeletal: Musculoskeletal: Denies numbness and Denies tingling Integumentary/Breasts: Skin/Breast: Denies rash, Denies sores and Denies wounds Neurologic: Reports dizziness, Denies numbness and Denies tingling Hematologic/Lymphatic: Hematologic/Lymphatic: Reports as per HPI [facility] Past Medical History Medical History Thiamine deficiency Low folic acid Hypomagnesemia Falls Elevated liver enzymes Cerebral atrophy Ataxia Persistent Paddy pouch cyst Abnormal liver enzymes Thrombocytopenia Elevated PSA, less than 10 ng/ml Obesity (BMI 30-39.9) Alcohol use disorder, moderate, dependence Gait disorder Elevated PSA History of gastritis Degenerative disc disease, lumbar Depression Cervical spondylosis Osteoarthritis Mild hypercholesterolemia Hypertension Opioid use disorder Opioid use disorder Surgical History Surgical History History of colonoscopy (~11/23/14) History of neck surgery History of back surgery Social History Social History Household Members: Spouse Housing: House Do you presently have visiting nurse or other home services: Yes ( is his MAINTENANCE CLERK) Alcohol intake: current Alcohol intake frequency: 3 or more drinks per day Alcohol type: hard liquor Patient Tobacco Use Status: Former Tobacco user Smoked in Last 30 Days: No Use of substances other than those prescribed or required for medical reasons: No Have you been hit, kicked, punched, or otherwise hurt by someone within the past year? If so, by whom?: No Do you feel safe in your current relationship?: Yes Is there a partner from a previous relationship who is making you feel unsafe now?: No Are you made to feel afraid or neglected: No Anabaptism Healthcare Practices: declined Advance Directives: No Advance Directives Information Provided: Yes Do you have a plan to hurt others: No Plan Recently lost weight without trying: Unsure How much weight loss: 2-13 pounds Eating poorly because of decreased appetite: No Nutrition screen score: 3 Nutrition Risks: Difficulty chewing and On aspiration precautions Poor oral hygiene: Yes Meds Allergies Allergy/AdvReac Type Severity Reaction Status Date / Time seasonal Allergy Unknown Itchy Eyes Uncoded 02/20/25 19:33 Active Medications: Current Medications Pantoprazole Sodium (Pantoprazole Sodium 40 Mg/10 Ml Vial) 40 mg IVPUSH BID DYAN Home Medications ?Medication ?Instructions ?Recorded ?Confirmed ?Last Taken ?Type amlodipine 10 mg-benazepril 40 mg 1 cap PO DAILY 08/01/20 01/05/25 Unknown History capsule atorvastatin 40 mg tablet 40 mg PO DAILY 11/30/24 01/05/25 Unknown History cholecalciferol (vitamin D3) 50 mcg PO 11/30/24 01/05/25 Unknown History mcg (2,000 unit) disintegrating tablet folic acid 800 mcg tablet 0.8 mg PO DAILY 01/05/25 01/05/25 Unknown History Physical Exam Vital Signs: Vital Signs: Last Vital Signs Temp 98.2 F 02/20/25 23:05 Pulse 93 02/20/25 23:05 Resp 18 02/20/25 23:05 BP 108/72 02/20/25 23:05 Pulse Ox 100 02/20/25 23:05 O2 Del Method Nasal Cannula 02/20/25 23:05 O2 Flow Rate 2 02/20/25 23:05 BMI result Body Mass Index 36.5 Const: General: no acute distress and alert Nutritional Appearance: obese Orientation/consciousness: patient oriented x3 (answering appropriately.) HEENT: Head: Yes normocephalic and Yes atraumatic General nose exam: Normal external nose present (Nares patent, septum midline, sinuses nontender bilaterally.) Mouth: Normal oral and palatal mucosa present (No thrush, tongue in midline, mucosa moist.) Throat: Yes other (No erythema, no exudate.) Neck: Neck: Yes supple (no thyromegaly, trachea midline.) Carotids: normal carotid upstroke Resp: Auscultation: clear to auscultation bilaterally (normal work of breathing, no accessory muscle use) Cardio: Jugular venous distension: no JVD Rate: regular rate Rhythm: regular rhythm Heart sounds: no gallops, no murmurs and no rubs Peripheral pulses: Peripheral pulses 2+ throughout GI: Inspection: No distended Palpation (GI): Tenderness to palpation present (GI) Auscultation: normal bowel sounds Neuro: General: patient oriented x3 (answering appropriately.) Extrem: General: Yes full ROM, Yes capillary refill normal and Yes no clubbing, cyanosis or edema Psych: Affect: normal affect Attitude: cooperative Results Labs 02/20/25 23:03 02/20/25 19:55 Labs: Laboratory Results - last 24 hr 02/20/25 02/20/25 02/20/25 19:38 19:55 21:58 MCV 96.2 MCH 35.6 H MCHC 37.1 H RDW 11.3 Plt Count 185 D MPV 10.3 Immature Gran % (Auto) 0.4 Neut % (Auto) 75.5 H Lymph % (Auto) 14.1 L Hopkins % (Auto) 9.7 Eos % (Auto) 0.0 Baso % (Auto) 0.3 Lymph # (Auto) 1.1 L Hopkins # (Auto) 0.8 Eos # (Auto) 0.0 Baso # (Auto) 0.0 Abs Immat Gran (auto) 0.03 Absolute Neuts (auto) 5.9 Absolute Nucleated RBC 0.000 Nucleated RBC % (auto) 0.0 PT 13.4 H INR 1.2 H APTT 24.9 L Anion Gap 20 Estim Creat Clear Calc 88.7 Estimated GFR > 60 Random Glucose 132 H Calcium 8.4 Phosphorus Magnesium 1.4 L* 1.7 Total Bilirubin 1.1 H AST 51 H ALT 25 Alkaline Phosphatase 65 Total Protein 5.9 L Albumin 3.4 L Urine Color Urine Appearance Urine pH Ur Specific [place] Urine Protein Urine Glucose (UA) Urine Ketones Urine Blood Urine Nitrite Ur Leukocyte Esterase Stool Occult Blood POSITIVE Ethyl Alcohol < 10 Influenza Type A (PCR) NEGATIVE Influenza Type B (PCR) NEGATIVE RSV RNA Qual (PCR) NEGATIVE SARS-CoV-2 RNA (RT-PCR) NEGATIVE Blood Type O Positive Antibody Screen NEGATIVE Crossmatch See Detail 02/20/25 02/20/25 23:01 23:03 MCV MCH MCHC RDW Plt Count MPV Immature Gran % (Auto) Neut % (Auto) Lymph % (Auto) Hopkins % (Auto) Eos % (Auto) Baso % (Auto) Lymph # (Auto) Hopkins # (Auto) Eos # (Auto) Baso # (Auto) Abs Immat Gran (auto) Absolute Neuts (auto) Absolute Nucleated RBC Nucleated RBC % (auto) PT INR APTT Anion Gap Estim Creat Clear Calc Estimated GFR Random Glucose Calcium Phosphorus 4.4 Magnesium Total Bilirubin AST ALT Alkaline Phosphatase Total Protein Albumin Urine Color Yellow Urine Appearance Clear Urine pH 6.0 Ur Specific [place] <= 1.005 Urine Protein Negative Urine Glucose (UA) Negative Urine Ketones Negative Urine Blood Negative Urine Nitrite Negative Ur Leukocyte Esterase Negative Stool Occult Blood Ethyl Alcohol Influenza Type A (PCR) Influenza Type B (PCR) RSV RNA Qual (PCR) SARS-CoV-2 RNA (RT-PCR) Blood Type Antibody Screen Crossmatch Assessment and Plan (1) Acute hypotension: Status: Acute (2) Acute blood loss anemia: Status: Acute (3) Acute upper gastrointestinal bleeding: Status: Acute (4) Hypomagnesemia: Status: Acute (5) Abnormal liver enzymes: Status: Acute (6) Alcohol use disorder, moderate, dependence: Status: Acute Plan 69-year-old male with a history of hypertension, hyperlipidemia, neuropathy, alcohol use disorder, hepatic steatosis, opiate use disorder, chronic pain, DJD lumbar spine, depression admitted for management of acute GI bleed. Neuro: No acute? issues.?? Cardiac: No acute issues. Pulmonary: No acute issues Renal: Elevated BUN likely due to acute GI bleed. Endo:? No acute issues.? GI: Acute GI bleed. Underlying chronic alcoholism, hepatic steatosis.PPI. Transfuse as indicated. Gastroenterology care appreciated. : No acute issues. Heme/Onc: Acute blood loss likely due to upper GI bleed.?S/p 4 units PRBC, 2 FFP, 1 platelet. ID:? No suspicion for infection. Psych: Chronic alcoholism.?CIWA. Addiction medicine consult placed. Miscellaneous: No acute issues. Prophylaxis: pneumatic hoses, PPI Diet: NPO Patient's care was discussed in detail with Dr. Johnson.? He is aware of all the above as well as the plan of care for this patient. Total time managing care of this patient today: 60 minutes.
[2025-02-21] VITALS (28 sets, daily range): BP systolic 96–134; BP diastolic 59–79; PULSE 74–97; RESP 12–19; TEMP 36.2–37.2; O2SAT 94–100; BMI 37.1
[2025-02-21] MEDS: Potassium Chloride/H20 10 MEQ/100 ML PIGGYBACK 100 MEQ IV ×4 (01:12→04:21)
[2025-02-21 05:59] LABS: VBG Base Excess 3.7 mmol/L; VBG HCO3 26 mmol/L (22-26); VBG pCO2 33 mmHg; VBG pO2 65 mmHg
[2025-02-21 06:08] LABS: Basophils Percent Auto 0.2 % (0-2); Hematocrit 36.9 % (42.0-52.0); Hemoglobin 13.8 g/dl (14.0-18.0); Imm Gran Abs Auto 0.02 X10*3/uL (0.00-0.03); Imm Gran Pct Auto 0.3 % (0.0-0.4); Lymphocytes Percent Auto 15.5 % (20-40); MANUAL DIFF FLAG NO; Mean Corpuscular HGB Conc 37.4 g/dl (31.0-36.0); Mean Corpuscular Volume 90.9 fL (80.0-98.0); Mean Platelet Volume 10.3 fL (9.4-12.4); Monocytes Absolute Auto 0.8 X10*3/uL (0.1-1.2); Monocytes Percent Auto 12.7 % (2-11); Neutrophils Absolute Auto 4.7 x10*3/uL (2.0-8.3); Neutrophils Percent Auto 71.3 % (45-73); Platelet Count 148 X10*3/uL (160-400); Red Blood Count 4.06 X10*6/uL (4.60-5.80); Red Cell Distribution Width 14.2 % (11.0-16.0); White Blood Count 6.6 X10*3/uL (4.8-10.8)
--- NOTE | 2025-02-21 06:55 | PC.NURSE ---
Patient admitted to the ICU from ED at 23:35 for GI bleed with syncopal episode at home. The patient was oriented to the call gotti, bed mechanics, and plan of care. Patient requested all four bed rails be placed up for comfort/safety.? A&Ox4. Neuros intact. This patient has seizure precautions in place and is on CIWA assessments per ACADEMIC DEPARTMENT CHAIR as the patient reported to this advertising copy writer he drinks ?about a dozen white claws? between day and night. Patient declined brief intervention. ACADEMIC DEPARTMENT CHAIR notified and addiction medicine consult was placed.? VSS, SBP 100-110?s. Afib on tele 80-90?s at rest, previously confirmed with EKG in ED. Covering ACADEMIC DEPARTMENT CHAIR Mary Obregon made aware of afib. Rate is controlled and the patient denies chest pain, palpitations, dizziness, or other symptoms. No new orders at this time. Potassium was repleted as ordered (see MAR).?? Patient arrived on 2L nc with spo2 100% when placed on the monitor. Crown Ironer attempted to wean as tolerated, however, the patient demonstrated frequent brief desats to the low 80?s during sleep that would improve spontaneously and when waking the patient. ACADEMIC DEPARTMENT CHAIR notified with orders to place on nc with an spo2 goal of 90-95% after the patient declined the offered CPAP as initially advised by ACADEMIC DEPARTMENT CHAIR. This patient has consistently denied sob and breathing remains even and unlabored without distress. No BM this shift. Pt remains strict NPO per ACADEMIC DEPARTMENT CHAIR with plans for tentative EGD. Platelets that were ordered prior to this patient arriving to the unit were ready at 01:00 this morning per advertising copy writer?s call to confirm with the blood bank. Platelets obtained and transfused without any complications. A temp-sensing lam in place on arrival to the unit is intact and patent of adequate amounts of odorless cyu. Lam care was provided with lam wipes. Triad was applied to reddened inter-gluteal fold. Abrasions note to left great toe and right second toes, ERNESTINA without redness or drainage (See wound photos). The patient is on a low air loss repositioning bed with q2h repositioning. Denies pain. Please see assessments, tasks in worklist, and the MAR for full details.? Handoff report given to the oncoming RN at 06:45
[2025-02-21 06:56] LABS: Alanine Aminotransferase 22 U/L (0-40); Albumin Level 3.5 g/dL (3.5-5.0); Alkaline Phosphatase 64 U/L (39-117); Anion Gap 17 (12-20); Aspartate Amino Transferase 47 U/L (5-37); Bilirubin Total 2.7 mg/dL (0.0-1.0); Blood Urea Nitrogen 28 mg/dL (9-16); Calcium 8.6 mg/dL (8.4-10.2); Carbon Dioxide 25 mmol/L (22-29); Chloride 94 mmol/L (96-108); Creatinine Clr Calc Pharmacy 118.5; Estimated Glomerular Filt Rate > 60; Glucose Random 87 mg/dL (60-115); Magnesium 1.9 mg/dL (1.6-2.6); Potassium 3.6 mmol/L (3.3-5.1); Sodium 132 mmol/L (135-145); Total Protein 6.1 g/dL (6.5-8.0)
--- NOTE | 2025-02-21 07:47 | MHC.SHP ---
Pre-Procedural Eval Section A - 24 Hr Update-Section A only Date of Service: 02/21/25 The patient is an INPATIENT: Yes Changes since office visit: No Cold of Flu in the past 2 weeks, No New Medical Problems, No Changes in Medication and No Patient answered all questions The patient has been examined within 24 hours of the surgical procedure. The History & Physical has been completed within 30 days and I have reviewed it.: Yes Section B - Complete if H&P > 30 days Chief Complaint: GI bleed Allergies: Allergies Allergy/AdvReac Type Severity Reaction Status Date / Time seasonal Allergy Unknown Itchy Eyes Uncoded 02/20/25 19:33 Plan I have reviewed the history and physical and performed a pertinent physical examination on my patient. No changes have occurred unless specified. Time Spent With Patient Time: Total time managing care of this patient today ____ minutes.
--- NOTE | 2025-02-21 08:21 | PHA.MEDREC ---
Addendum entered by Yuiner Kaiser 02/21/25 08:25: reviewed Original Note: Pharmacy Consult ? Medication Reconciliation Pharmacy has completed the medication reconciliation. Spoke with patient and patients at bedside, patient was able to confirm his medications. Patient confirmed he stopped his Clonidine 0.1mg tab a few weeks ago himself, stating he doesn't think I needs to take that medication anymore .
--- NOTE | 2025-02-21 08:26 | CONS_ITS ---
DATE OF SERVICE: 02/21/2025 REASON FOR CONSULTATION: GI bleeding. HISTORY OF PRESENT ILLNESS: The patient is a pleasant 69-year-old man, who was admitted to the intensive care unit after presenting to the emergency room yesterday with near syncope and melena at home. He has a history of using ibuprofen 800 mg twice daily for generalized pain and back pain and reports drinking approximately 5 to 12 drinks per day on a regular basis. He reports stools were black at home and had a near syncopal episode in the bathroom on the toilet. Stool was described as black and tarry. The second black and tarry stool was reported in the emergency department. He was also reported to be taking Tums for epigastric pain. He denies prior history of peptic ulcer disease, family history of GI malignancy. He does not recall undergoing upper endoscopy. In the emergency department, he was hypotensive and was transfused with a total of 4 units of blood, 2 units of packed red blood cells and platelets. He was admitted to the ICU with improvement in his hemodynamics and his most recent hematocrit was 36.9, up from 27.8 on admission. There has been no reported bleeding overnight. Review of his record shows he last underwent colonoscopy in [address] Holden, which showed diverticulosis and internal hemorrhoids, 10 year followup was recommended. There is no record of upper endoscopy in the available medical record. PAST MEDICAL HISTORY: 1. Hypertension. 2. Hyperlipidemia. 3. Neuropathy. 4. Alcohol use. 5. History of opiate use disorder. 6. Chronic back and generalized pain. 7. Degenerative joint disease of lumbar spine. 8. Fatty liver. 9. Cerebral atrophy. 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 11. Elevated PSA. 12. Colonoscopy as above. 13. Neck surgery. 14. Back surgery. CURRENT MEDICATIONS: His current medication list is reviewed in the chart. ALLERGIES: THERE ARE NO REPORTED DRUG ALLERGIES. FAMILY HISTORY: Negative for GI malignancy per the patient. SOCIAL HISTORY: There is no current tobacco abuse. REVIEW OF SYSTEMS: SKIN: No pruritus. HEENT: Negative. CARDIOPULMONARY: No shortness of breath or chest pain. GASTROINTESTINAL: As above. GENITOURINARY: Negative. NEUROPSYCHIATRIC: Negative. PHYSICAL EXAMINATION: GENERAL: Shows a somnolent male, who responds to questions. VITAL SIGNS: Reviewed in electronic medical record and are stable. His hemodynamic dynamics have improved markedly since his transfusion. SKIN: Anicteric. HEENT: Shows no scleral icterus. NECK: Without lymphadenopathy or thyromegaly. LUNGS: Clear. HEART: Shows a regular rate and rhythm. S1, S2. No murmur. ABDOMEN: Soft without focal masses or tenderness. Bowel sounds are present. No organomegaly is noted. EXTREMITIES: Show compression boots in place. LABORATORY DATA AND IMAGING STUDIES: Reviewed. IMPRESSION: Upper gastrointestinal bleeding. Differential diagnosis for this includes peptic ulcer disease, which is likely given his history of alcohol use and NSAID use. He has no signs of cirrhosis on previous imaging, so it is less likely that he has any variceal issues. Other possible causes include gastritis and AVMs. I discussed endoscopy with him including treatment with gold probe. He understands risks and benefits and agrees to proceed. This will be arranged for later in the day. Thanks for asking me to see him. I will follow him in the hospital with you. MD SAILAJA Arboleda/SUSAN / [id number]
[2025-02-21] MEDS: Pantoprazole Sodium 40 MG/10 ML VIAL IVPUSH ×2 (09:57→20:55)
--- NOTE | 2025-02-21 10:03 | PM.CCPN ---
Subjective Subjective Date of Service: 02/21/25 Interval History: 69-year-old gentleman with underlying history of hypertension, neuropathy, alcohol dependence, hepatic steatosis, opiate dependence admitted on 02/20/2025 after a syncopal event with large melanotic bowel. On ER evaluation patient hypotensive, though responded well to IV fluids. Initial hemoglobin of 10, transfused 4 units of packed red blood cells with appropriate response. Gastroenterology service consulted and patient is planned for EGD later today. No events overnight. No rebleeding. Critical Care Time (minutes): 0 Physical Exam Vital Signs: Vital Signs: Last Vital Signs Temp 98.2 F 02/21/25 09:00 Pulse 84 02/21/25 09:00 Resp 15 02/21/25 09:00 BP 107/72 02/21/25 09:00 Pulse Ox 98 02/21/25 09:00 O2 Del Method Nasal Cannula 02/21/25 09:00 O2 Flow Rate 2 02/21/25 09:00 BMI result Body Mass Index 37.1 Const: General: no acute distress, alert and awake Eyes: Sclerae: sclerae normal EOM: EOMs intact bilaterally Neck: Neck: Yes no lymphadenopathy, Yes trachea midline and Yes supple Resp: Effort & Inspection: normal respiratory effort and no respiratory distress Auscultation: clear to auscultation bilaterally Cardio: Rate: regular rate Rhythm: regular rhythm Heart sounds: no gallops, no murmurs and no rubs GI: Palpation (GI): Soft to palpation and Other GI palpation findings present ( Nontender) Auscultation: normal bowel sounds Extrem: General: Yes no pedal edema, No clubbing and No cyanosis Objective Data Labs 02/21/25 05:52 02/21/25 05:52 Labs: Laboratory Results - last 24 hr 02/20/25 02/20/25 02/20/25 19:38 19:55 21:58 WBC 7.8 RBC 2.89 L D Hgb 10.3 L D Hct 27.8 L D MCV 96.2 MCH 35.6 H MCHC 37.1 H RDW 11.3 Plt Count 185 D MPV 10.3 Immature Gran % (Auto) 0.4 Neut % (Auto) 75.5 H Lymph % (Auto) 14.1 L [place] % (Auto) 9.7 Eos % (Auto) 0.0 Baso % (Auto) 0.3 Lymph # (Auto) 1.1 L [place] # (Auto) 0.8 Eos # (Auto) 0.0 Baso # (Auto) 0.0 Abs Immat Gran (auto) 0.03 Absolute Neuts (auto) 5.9 Absolute Nucleated RBC 0.000 Nucleated RBC % (auto) 0.0 PT 13.4 H INR 1.2 H APTT 24.9 L VBG pH VBG pCO2 VBG pO2 VBG HCO3 VBG O2 Saturation VBG Base Excess Sodium 122 L Potassium 3.3 D Chloride 83 L Carbon Dioxide 22 Anion Gap 20 BUN 35 H Creatinine 0.94 Estim Creat Clear Calc 88.7 Estimated GFR > 60 Random Glucose 132 H Calcium 8.4 Phosphorus Magnesium 1.4 L* 1.7 Total Bilirubin 1.1 H AST 51 H ALT 25 Alkaline Phosphatase 65 Troponin I High Sens 5.6 Total Protein 5.9 L Albumin 3.4 L Urine Color Urine Appearance Urine pH Ur Specific [place] Urine Protein Urine Glucose (UA) Urine Ketones Urine Blood Urine Nitrite Ur Leukocyte Esterase Stool Occult Blood POSITIVE Ethyl Alcohol < 10 Influenza Type A (PCR) NEGATIVE Influenza Type B (PCR) NEGATIVE RSV RNA Qual (PCR) NEGATIVE SARS-CoV-2 RNA (RT-PCR) NEGATIVE Blood Type O Positive Antibody Screen NEGATIVE Crossmatch See Detail 02/20/25 02/20/25 02/21/25 23:01 23:03 05:52 WBC 6.6 RBC 4.06 L D Hgb 12.9 L D 13.8 L Hct 35.0 L D 36.9 L MCV 90.9 D MCH 34.0 H MCHC 37.4 H RDW 14.2 Plt Count 148 L MPV 10.3 Immature Gran % (Auto) 0.3 Neut % (Auto) 71.3 Lymph % (Auto) 15.5 L [place] % (Auto) 12.7 H Eos % (Auto) 0.0 Baso % (Auto) 0.2 Lymph # (Auto) 1.0 L [place] # (Auto) 0.8 Eos # (Auto) 0.0 Baso # (Auto) 0.0 Abs Immat Gran (auto) 0.02 Absolute Neuts (auto) 4.7 Absolute Nucleated RBC 0.000 Nucleated RBC % (auto) 0.0 PT INR APTT VBG pH VBG pCO2 VBG pO2 VBG HCO3 VBG O2 Saturation VBG Base Excess Sodium 132 L Potassium 3.6 Chloride 94 L Carbon Dioxide 25 Anion Gap 17 BUN 28 H Creatinine 0.71 Estim Creat Clear Calc 118.5 Estimated GFR > 60 Random Glucose 87 Calcium 8.6 Phosphorus 4.4 Magnesium 1.9 Total Bilirubin 2.7 H AST 47 H ALT 22 Alkaline Phosphatase 64 Troponin I High Sens Total Protein 6.1 L Albumin 3.5 Urine Color Yellow Urine Appearance Clear Urine pH 6.0 Ur Specific [place] <= 1.005 Urine Protein Negative Urine Glucose (UA) Negative Urine Ketones Negative Urine Blood Negative Urine Nitrite Negative Ur Leukocyte Esterase Negative Stool Occult Blood Ethyl Alcohol Influenza Type A (PCR) Influenza Type B (PCR) RSV RNA Qual (PCR) SARS-CoV-2 RNA (RT-PCR) Blood Type Antibody Screen Crossmatch 02/21/25 05:54 WBC RBC Hgb Hct MCV MCH MCHC RDW Plt Count MPV Immature Gran % (Auto) Neut % (Auto) Lymph % (Auto) [place] % (Auto) Eos % (Auto) Baso % (Auto) Lymph # (Auto) [place] # (Auto) Eos # (Auto) Baso # (Auto) Abs Immat Gran (auto) Absolute Neuts (auto) Absolute Nucleated RBC Nucleated RBC % (auto) PT INR APTT VBG pH 7.50 H VBG pCO2 33 VBG pO2 65 VBG HCO3 26 VBG O2 Saturation 92.0 VBG Base Excess 3.7 Sodium Potassium Chloride Carbon Dioxide Anion Gap BUN Creatinine Estim Creat Clear Calc Estimated GFR Random Glucose Calcium Phosphorus Magnesium Total Bilirubin AST ALT Alkaline Phosphatase Troponin I High Sens Total Protein Albumin Urine Color Urine Appearance Urine pH Ur Specific [place] Urine Protein Urine Glucose (UA) Urine Ketones Urine Blood Urine Nitrite Ur Leukocyte Esterase Stool Occult Blood Ethyl Alcohol Influenza Type A (PCR) Influenza Type B (PCR) RSV RNA Qual (PCR) SARS-CoV-2 RNA (RT-PCR) Blood Type Antibody Screen Crossmatch Progress Note: A&P Assessment and plan (1) Alcohol use disorder, moderate, dependence: Status: Acute (2) Opioid use disorder: Status: Acute (3) Acute upper gastrointestinal bleeding: Status: Acute Plan Assessment: 69-year-old gentleman with underlying alcohol dependence admitted with initial hypotension and syncopal episode after large melanotic bowel movement Plan: Neuro: No acute issues. Cardiac: No acute issues. Pulmonary: No acute issues. Renal: No acute issues. Endo: No acute issues. GI: Likely upper GI bleed. Gastroenterology service care appreciated. Plan for EGD later today. ID: No acute issues Heme/Onc: Continue to monitor hemoglobin. Transfusion threshold of 7. Psych: No acute issues. Miscellaneous: No acute issues. Prophylaxis: Pneumatic compression Diet: NPO Quality Stroke Does the patient have a stroke diagnosis?: No VTE Prior VTE?: No VTE Risk Level:: Medical - moderate - high VTE Device Contraindication: N/A - Device Ordered VTE Drug Contraindication: Treatment Not Indicated
[2025-02-21 10:08] LABS: Venous Blood Gas Refer to POC result
--- NOTE | 2025-02-21 15:38 | MHC.CM.PN ---
Met w/pt and spouse to review d/c planning needs: pt resides w/spouse who is assuming care assistance for pt including bathing dressing and transfer assistance. Pt has a w/c, walker and adaptive bathroom DME. Spouse states pt has a weak extremity and has been falling. She is concerned with his safety - pt is refsuing to consider STR placement but is receptive to [facility] for RN/PT/TRAFFIC MAINTENANCE OFFICER care. BLS transfer to home. HCP declined, IMM in chart. CM to follow
--- NOTE | 2025-02-21 18:03 | PM.EVENT ---
Event Note Date of Service: 02/21/25 Event Note: GI-Patient's EGD has to unfortunately be bumped until tomorrow, 02/22/2025, as there is no room on OR schedule until sometime this evening. Patient has been stable over the course of the day without any further signs of active bleeding. I have placed orders for this change in plans. I reviewed this with the nurse as well. Please call me if problems over night. Thanks Time Spent With Patient Time: Total time managing care of this patient today ____ minutes.
[2025-02-21 18:23] LABS: MANUAL DIFF FLAG NO
[2025-02-21 18:25] LABS: Basophils Percent Auto 0.3 % (0-2); Eosinophils Percent Auto 0.1 % (0-4); Hematocrit 34.4 % (42.0-52.0); Hemoglobin 12.5 g/dl (14.0-18.0); Imm Gran Abs Auto 0.04 X10*3/uL (0.00-0.03); Imm Gran Pct Auto 0.5 % (0.0-0.4); Lymphocytes Percent Auto 12.7 % (20-40); Mean Corpuscular HGB Conc 36.3 g/dl (31.0-36.0); Mean Corpuscular Hemoglobin 33.3 pg (27.0-33.0); Mean Corpuscular Volume 91.7 fL (80.0-98.0); Monocytes Absolute Auto 1.1 X10*3/uL (0.1-1.2); Monocytes Percent Auto 14.5 % (2-11); Neutrophils Absolute Auto 5.5 x10*3/uL (2.0-8.3); Neutrophils Percent Auto 71.9 % (45-73); Platelet Count 160 X10*3/uL (160-400); Red Blood Count 3.75 X10*6/uL (4.60-5.80); Red Cell Distribution Width 14.6 % (11.0-16.0); White Blood Count 7.7 X10*3/uL (4.8-10.8)
[2025-02-21] MEDS: Melatonin 3 MG TABLET 9 MG PO (21:14)
[2025-02-21] MEDS: Acetaminophen 325 MG TABLET 975 MG PO (21:14)
[2025-02-21] MEDS: Lidocaine 4 % Patch ADH..PATCH 2 PATCH TRANSDERMA (21:19)
[2025-02-22] VITALS (26 sets, daily range): BP systolic 81–134; BP diastolic 50–94; PULSE 30–126; RESP 13–21; TEMP 36.2–38.8; O2SAT 90–99; BMI 36.0
[2025-02-22 05:34] LABS: MANUAL DIFF FLAG NO
[2025-02-22 05:38] LABS: Basophils Percent Auto 0.4 % (0-2); Eosinophils Percent Auto 0.4 % (0-4); Hemoglobin 12.6 g/dl (14.0-18.0); Imm Gran Abs Auto 0.02 X10*3/uL (0.00-0.03); Imm Gran Pct Auto 0.4 % (0.0-0.4); Lymphocytes Absolute Auto 1.2 X10*3/uL (1.2-4.9); Lymphocytes Percent Auto 21.7 % (20-40); Mean Corpuscular Hemoglobin 33.2 pg (27.0-33.0); Mean Corpuscular Volume 92.3 fL (80.0-98.0); Mean Platelet Volume 9.4 fL (9.4-12.4); Monocytes Absolute Auto 0.7 X10*3/uL (0.1-1.2); Monocytes Percent Auto 13.2 % (2-11); Neutrophils Absolute Auto 3.5 x10*3/uL (2.0-8.3); Neutrophils Percent Auto 63.9 % (45-73); Platelet Count 168 X10*3/uL (160-400); Red Blood Count 3.79 X10*6/uL (4.60-5.80); Red Cell Distribution Width 14.5 % (11.0-16.0); White Blood Count 5.5 X10*3/uL (4.8-10.8)
[2025-02-22 05:54] LABS: Albumin Level 3.2 g/dL (3.5-5.0); Anion Gap 14 (12-20); Blood Urea Nitrogen 15 mg/dL (9-16); Calcium 8.2 mg/dL (8.4-10.2); Carbon Dioxide 28 mmol/L (22-29); Chloride 95 mmol/L (96-108); Creatinine Clr Calc Pharmacy 159.3; Estimated Glomerular Filt Rate > 60; Glucose Random 89 mg/dL (60-115); Magnesium 1.7 mg/dL (1.6-2.6); Phosphorus 3.3 mg/dL (2.7-4.5); Potassium 3.3 mmol/L (3.3-5.1); Sodium 134 mmol/L (135-145)
[2025-02-22] MEDS: Pantoprazole Sodium 40 MG/10 ML VIAL IVPUSH ×2 (08:42→17:33)
--- NOTE | 2025-02-22 10:30 | P.PNCC_ITS ---
Subjective Subjective Date of Service: 02/22/25 Interval History: 69-year-old gentleman with underlying history of hypertension, neuropathy, alcohol dependence, hepatic steatosis, opiate dependence admitted on 02/20/2025 after a syncopal event with large melanotic bowel. On ER evaluation patient hypotensive, though responded well to IV fluids. Initial hemoglobin of 10, transfused 4 units of packed red blood cells with appropriate response. Gastroenterology service consulted and patient is planned for EGD later today. No events overnight. No rebleeding. Critical Care Time (minutes): 0 Physical Exam 2 Vital Signs: Vital Signs: Last Vital Signs Temp 97.5 F 02/22/25 09:00 Pulse 80 02/22/25 09:00 Resp 18 02/22/25 09:00 BP 124/86 02/22/25 09:00 Pulse Ox 97 02/22/25 09:00 O2 Del Method Nasal Cannula 02/22/25 09:00 O2 Flow Rate 2 02/22/25 09:00 BMI result Body Mass Index 36.0 Const: General: no acute distress, alert and awake Eyes: Sclerae: sclerae normal EOM: EOMs intact bilaterally Neck: Neck: Yes no lymphadenopathy, Yes trachea midline and Yes supple Resp: Effort & Inspection: normal respiratory effort and no respiratory distress Auscultation: clear to auscultation bilaterally Cardio: Rate: regular rate Rhythm: regular rhythm Heart sounds: no gallops, no murmurs and no rubs GI: Palpation (GI): Soft to palpation and Other GI palpation findings present ( Nontender) Auscultation: normal bowel sounds Extrem: General: Yes no pedal edema, No clubbing and No cyanosis Objective Data Labs 02/22/25 05:09 02/22/25 05:09 Labs: Laboratory Results - last 24 hr 02/21/25 02/22/25 18:15 05:09 WBC 7.7 5.5 RBC 3.75 L 3.79 L Hgb 12.5 L 12.6 L Hct 34.4 L 35.0 L MCV 91.7 92.3 MCH 33.3 H 33.2 H MCHC 36.3 H 36.0 RDW 14.6 14.5 Plt Count 160 168 MPV 10.0 9.4 Immature Gran % (Auto) 0.5 H 0.4 Neut % (Auto) 71.9 63.9 Lymph % (Auto) 12.7 L 21.7 [place] % (Auto) 14.5 H 13.2 H Eos % (Auto) 0.1 0.4 Baso % (Auto) 0.3 0.4 Lymph # (Auto) 1.0 L 1.2 [place] # (Auto) 1.1 0.7 Eos # (Auto) 0.0 0.0 Baso # (Auto) 0.0 0.0 Abs Immat Gran (auto) 0.04 H 0.02 Absolute Neuts (auto) 5.5 3.5 Absolute Nucleated RBC 0.000 0.000 Nucleated RBC % (auto) 0.0 0.0 Sodium 134 L Potassium 3.3 Chloride 95 L Carbon Dioxide 28 Anion Gap 14 BUN 15 Creatinine 0.52 Estim Creat Clear Calc 159.3 Estimated GFR > 60 Random Glucose 89 Calcium 8.2 L Phosphorus 3.3 Magnesium 1.7 Albumin 3.2 L Progress Note: A&P Assessment and plan (1) Acute blood loss anemia: Status: Acute (2) Alcohol use disorder: Status: Acute Plan Assessment: 69-year-old gentleman with underlying alcohol dependence admitted with initial hypotension and syncopal episode after large melanotic bowel movement Plan: Neuro: No acute issues. Cardiac: No acute issues. Pulmonary: No acute issues. Renal: No acute issues. Endo: No acute issues. GI: Likely upper GI bleed. Gastroenterology service care appreciated. Plan for EGD later today. ID: No acute issues Heme/Onc: Continue to monitor hemoglobin. Transfusion threshold of 7. Psych: No acute issues. Miscellaneous: No acute issues. Prophylaxis: Pneumatic compression Diet: NPO Quality Stroke Does the patient have a stroke diagnosis?: No VTE Prior VTE?: No VTE Risk Level:: Medical - moderate - high VTE Device Contraindication: N/A - Device Ordered VTE Drug Contraindication: Treatment Not Indicated
--- NOTE | 2025-02-22 11:27 | P.CONAN_ITS ---
HPI - Anesthesia Eval Consult details Narrative: upper endoscopy PMFSH Active Problems Active Problems: All Active Problems Alcohol use disorder (Acute) Acute hypotension (Acute) Acute blood loss anemia (Acute) Acute upper gastrointestinal bleeding (Acute) Thiamine deficiency (Acute) Low folic acid (Acute) Hypomagnesemia (Acute) Falls (Acute) Elevated liver enzymes (Acute) Cerebral atrophy (Acute) Ataxia (Acute) Persistent Paddy pouch cyst (Acute) Abnormal liver enzymes (Acute) Thrombocytopenia (Acute) Elevated PSA, less than 10 ng/ml (Acute) Obesity (BMI 30-39.9) (Acute) Alcohol use disorder, moderate, dependence (Acute) Gait disorder (Acute) Elevated PSA (Acute) History of gastritis (Acute) Degenerative disc disease, lumbar (Acute) Depression (Acute) Cervical spondylosis (Acute) Osteoarthritis (Acute) Mild hypercholesterolemia (Acute) Hypertension (Acute) Oxycodone use disorder, mild, in sustained remission (Acute) Opioid use disorder (Acute) Opioid use disorder (Acute) Past Medical History Medical History Thiamine deficiency Low folic acid Hypomagnesemia Falls Elevated liver enzymes Cerebral atrophy Ataxia Persistent Paddy pouch cyst Abnormal liver enzymes Thrombocytopenia Elevated PSA, less than 10 ng/ml Obesity (BMI 30-39.9) Alcohol use disorder, moderate, dependence Gait disorder Elevated PSA History of gastritis Degenerative disc disease, lumbar Depression Cervical spondylosis Osteoarthritis Mild hypercholesterolemia Hypertension Opioid use disorder Opioid use disorder Family History Family history of problems with anesthesia: No Surgical History Surgical History History of colonoscopy (~11/23/14) History of neck surgery History of back surgery History of Problems with Anesthesia: No Social History Social History Household Members: Spouse Housing: House Do you presently have visiting nurse or other home services: Yes ( is his [employer]ITION[employer] FIGHTING [employer]) Alcohol intake: current Alcohol intake frequency: 3 or more drinks per day Alcohol type: hard liquor Patient Tobacco Use Status: Former Tobacco user Smoked in Last 30 Days: No Use of substances other than those prescribed or required for medical reasons: No Currently Displaying Signs/Symptoms of Drug Intoxication Withdrawal: No Have you been hit, kicked, punched, or otherwise hurt by someone within the past year? If so, by whom?: No Do you feel safe in your current relationship?: Yes Is there a partner from a previous relationship who is making you feel unsafe now?: No Are you made to feel afraid or neglected: No Buddhist Healthcare Practices: declined Advance Directives: No Advance Directives Information Provided: Yes Do you have a plan to hurt others: No Plan Recently lost weight without trying: Unsure How much weight loss: 2-13 pounds Eating poorly because of decreased appetite: No Nutrition screen score: 3 Nutrition Risks: Difficulty chewing and On aspiration precautions Poor oral hygiene: Yes Meds Allergies Allergy/AdvReac Type Severity Reaction Status Date / Time seasonal Allergy Unknown Itchy Eyes Uncoded 02/20/25 19:33 Active Medications: Current Medications Lidocaine (Lidocaine 4 % Patch Adh..Patch) 2 patch TRANSDERMA DAILY [facility]; Protocol Last Admin: 02/21/25 21:19 Dose: 2 patch Pantoprazole Sodium (Pantoprazole Sodium 40 Mg/10 Ml Vial) 40 mg IVPUSH BID DYAN Last Admin: 02/22/25 08:42 Dose: 40 mg Home Medications ?Medication ?Instructions ?Recorded ?Confirmed ?Last Taken ?Type amlodipine 10 mg-benazepril 40 mg 1 cap PO DAILY 08/01/20 02/21/25 02/19/25 History capsule atorvastatin 40 mg tablet 40 mg PO DAILY 11/30/24 02/21/25 02/19/25 History cholecalciferol (vitamin D3) 50 50 mcg PO DAILY 11/30/24 02/21/25 02/19/25 History mcg (2,000 unit) disintegrating tablet folic acid 800 mcg tablet 0.8 mg PO DAILY 01/05/25 02/21/25 02/19/25 History sertraline 25 mg tablet 25 mg PO DAILY 02/21/25 02/21/25 02/19/25 History Exam Height,Weight and Vital Signs: Height 5 ft 8 in Weight 107.5 kg Last Vital Signs Temp 98.2 F 02/22/25 11:00 Pulse 88 02/22/25 11:00 Resp 18 02/22/25 11:00 BP 130/94 H 02/22/25 11:00 Pulse Ox 99 02/22/25 11:00 O2 Del Method Nasal Cannula 02/22/25 11:00 O2 Flow Rate 2 02/22/25 11:00 Pertinent Lab Results Pertinent Lab Results: Laboratory Tests 02/20/25 02/20/25 02/20/25 19:38 19:55 21:58 WBC 7.8 RBC 2.89 L D Hgb 10.3 L D Hct 27.8 L D MCV 96.2 MCH 35.6 H MCHC 37.1 H RDW 11.3 Plt Count 185 D MPV 10.3 Immature Gran % (Auto) 0.4 Neut % (Auto) 75.5 H Lymph % (Auto) 14.1 L [place] % (Auto) 9.7 Eos % (Auto) 0.0 Baso % (Auto) 0.3 Lymph # (Auto) 1.1 L [place] # (Auto) 0.8 Eos # (Auto) 0.0 Baso # (Auto) 0.0 Abs Immat Gran (auto) 0.03 Absolute Neuts (auto) 5.9 Absolute Nucleated RBC 0.000 Nucleated RBC % (auto) 0.0 PT 13.4 H INR 1.2 H APTT 24.9 L VBG pH VBG pCO2 VBG pO2 VBG HCO3 VBG O2 Saturation VBG Base Excess Sodium 122 L Potassium 3.3 D Chloride 83 L Carbon Dioxide 22 Anion Gap 20 BUN 35 H Creatinine 0.94 Estim Creat Clear Calc 88.7 Estimated GFR > 60 Random Glucose 132 H Calcium 8.4 Phosphorus Magnesium 1.4 L* 1.7 Total Bilirubin 1.1 H AST 51 H ALT 25 Alkaline Phosphatase 65 Troponin I High Sens 5.6 Total Protein 5.9 L Albumin 3.4 L Urine Color Urine Appearance Urine pH Ur Specific [place] Urine Protein Urine Glucose (UA) Urine Ketones Urine Blood Urine Nitrite Ur Leukocyte Esterase Stool Occult Blood POSITIVE Ethyl Alcohol < 10 Influenza Type A (PCR) NEGATIVE Influenza Type B (PCR) NEGATIVE RSV RNA Qual (PCR) NEGATIVE SARS-CoV-2 RNA (RT-PCR) NEGATIVE Blood Type O Positive Antibody Screen NEGATIVE Crossmatch See Detail 02/20/25 02/20/25 02/21/25 23:01 23:03 05:52 WBC 6.6 RBC 4.06 L D Hgb 12.9 L D 13.8 L Hct 35.0 L D 36.9 L MCV 90.9 D MCH 34.0 H MCHC 37.4 H RDW 14.2 Plt Count 148 L MPV 10.3 Immature Gran % (Auto) 0.3 Neut % (Auto) 71.3 Lymph % (Auto) 15.5 L [place] % (Auto) 12.7 H Eos % (Auto) 0.0 Baso % (Auto) 0.2 Lymph # (Auto) 1.0 L [place] # (Auto) 0.8 Eos # (Auto) 0.0 Baso # (Auto) 0.0 Abs Immat Gran (auto) 0.02 Absolute Neuts (auto) 4.7 Absolute Nucleated RBC 0.000 Nucleated RBC % (auto) 0.0 PT INR APTT VBG pH VBG pCO2 VBG pO2 VBG HCO3 VBG O2 Saturation VBG Base Excess Sodium 132 L Potassium 3.6 Chloride 94 L Carbon Dioxide 25 Anion Gap 17 BUN 28 H Creatinine 0.71 Estim Creat Clear Calc 118.5 Estimated GFR > 60 Random Glucose 87 Calcium 8.6 Phosphorus 4.4 Magnesium 1.9 Total Bilirubin 2.7 H AST 47 H ALT 22 Alkaline Phosphatase 64 Troponin I High Sens Total Protein 6.1 L Albumin 3.5 Urine Color Yellow Urine Appearance Clear Urine pH 6.0 Ur Specific [place] <= 1.005 Urine Protein Negative Urine Glucose (UA) Negative Urine Ketones Negative Urine Blood Negative Urine Nitrite Negative Ur Leukocyte Esterase Negative Stool Occult Blood Ethyl Alcohol Influenza Type A (PCR) Influenza Type B (PCR) RSV RNA Qual (PCR) SARS-CoV-2 RNA (RT-PCR) Blood Type Antibody Screen Crossmatch 02/21/25 02/21/25 02/22/25 05:54 18:15 05:09 WBC 7.7 5.5 RBC 3.75 L 3.79 L Hgb 12.5 L 12.6 L Hct 34.4 L 35.0 L MCV 91.7 92.3 MCH 33.3 H 33.2 H MCHC 36.3 H 36.0 RDW 14.6 14.5 Plt Count 160 168 MPV 10.0 9.4 Immature Gran % (Auto) 0.5 H 0.4 Neut % (Auto) 71.9 63.9 Lymph % (Auto) 12.7 L 21.7 [place] % (Auto) 14.5 H 13.2 H Eos % (Auto) 0.1 0.4 Baso % (Auto) 0.3 0.4 Lymph # (Auto) 1.0 L 1.2 [place] # (Auto) 1.1 0.7 Eos # (Auto) 0.0 0.0 Baso # (Auto) 0.0 0.0 Abs Immat Gran (auto) 0.04 H 0.02 Absolute Neuts (auto) 5.5 3.5 Absolute Nucleated RBC 0.000 0.000 Nucleated RBC % (auto) 0.0 0.0 PT INR APTT VBG pH 7.50 H VBG pCO2 33 VBG pO2 65 VBG HCO3 26 VBG O2 Saturation 92.0 VBG Base Excess 3.7 Sodium 134 L Potassium 3.3 Chloride 95 L Carbon Dioxide 28 Anion Gap 14 BUN 15 Creatinine 0.52 Estim Creat Clear Calc 159.3 Estimated GFR > 60 Random Glucose 89 Calcium 8.2 L Phosphorus 3.3 Magnesium 1.7 Total Bilirubin AST ALT Alkaline Phosphatase Troponin I High Sens Total Protein Albumin 3.2 L Urine Color Urine Appearance Urine pH Ur Specific [place] Urine Protein Urine Glucose (UA) Urine Ketones Urine Blood Urine Nitrite Ur Leukocyte Esterase Stool Occult Blood Ethyl Alcohol Influenza Type A (PCR) Influenza Type B (PCR) RSV RNA Qual (PCR) SARS-CoV-2 RNA (RT-PCR) Blood Type Antibody Screen Crossmatch Airway Mallampati Class: II TM Dist: <=3cm Neck ROM: Limited Heart: rrr Lungs: cta Assessment and Plan Assessment Anesthesia Assessment: Anesthesia Plan Discussed Final Anesthetic Review Family History of Problems with Anesthesia: No History of Problems with Anesthesia: No NPO: Yes ASA Class: III Final Preanesthetic Review: Meds/Allgs Chart Reviewed, Consent Obtained/Reviewed and Anes Risks/Benef Reviewed Patient Risk: Intermediate Procedure Risk: Low Anesthetic Plan Anesthetic Plan: GA and MAC: Disposition: Inp. Admit - ICU
--- NOTE | 2025-02-22 13:36 | P.BOP_ITS ---
Brief Operative Note Date of Service: 02/22/25 Pre-op diagnosis: GI bleed Post-op diagnosis: same Procedure: egd control of hemorrhage Surgeon: Douglas Byers MD Was an Textile Coating Machine Operator used for this Procedure?: No Estimated blood loss (mL): 100 Pathology: other Condition: critical Disposition: ICU
[2025-02-22] MEDS: ondansetron HCL 4 MG/2 ML VIAL IVPUSH (13:49)
[2025-02-22] MEDS: iohexoL 350 MG/ML 75 ML INFUS..BTL 80 ML IV (14:36)
[2025-02-22] MEDS: Pantoprazole Sodium 80 MG in 0.9 % Sodium Chloride 80 ML 10 MG IV ×2 (17:32→22:54)
[2025-02-22] MEDS: Metoprolol Tartrate 5 MG/5 ML VIAL IVPUSH (19:40)
[2025-02-22] MEDS: Lactated Ringers 500 ML IVCONT (20:52)
[2025-02-22] MEDS: Albumin Human 25 % 100 ML 133.33 ML IV ×2 (20:53→21:43)
[2025-02-22 21:10] LABS: MANUAL DIFF FLAG NO
[2025-02-22 21:11] LABS: Basophils Percent Auto 0.2 % (0-2); Eosinophils Percent Auto 0.1 % (0-4); Hematocrit 30.6 % (42.0-52.0); Imm Gran Abs Auto 0.04 X10*3/uL (0.00-0.03); Imm Gran Pct Auto 0.5 % (0.0-0.4); Lymphocytes Absolute Auto 0.8 X10*3/uL (1.2-4.9); Lymphocytes Percent Auto 8.5 % (20-40); Mean Corpuscular HGB Conc 35.9 g/dl (31.0-36.0); Mean Corpuscular Hemoglobin 33.7 pg (27.0-33.0); Mean Corpuscular Volume 93.9 fL (80.0-98.0); Mean Platelet Volume 9.7 fL (9.4-12.4); Monocytes Absolute Auto 1.1 X10*3/uL (0.1-1.2); Monocytes Percent Auto 12.1 % (2-11); Neutrophils Percent Auto 78.6 % (45-73); Platelet Count 203 X10*3/uL (160-400); Red Blood Count 3.26 X10*6/uL (4.60-5.80); White Blood Count 8.9 X10*3/uL (4.8-10.8)
[2025-02-22] MEDS: Piperacillin Sodium/Tazobactam 3.375 GM in 0.9 % Sodium Chloride 50 ML IV (21:17)
[2025-02-22] MEDS: Lactated Ringers 500 ML 999 ML IVCONT (21:19)
[2025-02-22 21:29] LABS: Alanine Aminotransferase 18 U/L (0-40); Albumin Level 2.9 g/dL (3.5-5.0); Alkaline Phosphatase 60 U/L (39-117); Anion Gap 14 (12-20); Aspartate Amino Transferase 43 U/L (5-37); Blood Urea Nitrogen 20 mg/dL (9-16); Calcium 7.9 mg/dL (8.4-10.2); Carbon Dioxide 28 mmol/L (22-29); Chloride 95 mmol/L (96-108); Creatinine Clr Calc Pharmacy 153.4; Estimated Glomerular Filt Rate > 60; Glucose Random 123 mg/dL (60-115); Potassium 4.4 mmol/L (3.3-5.1); Sodium 133 mmol/L (135-145); Total Protein 5.3 g/dL (6.5-8.0)
[2025-02-22 21:31] LABS: Lactic Acid 2.2 mmol/L (0.5-2.0)
[2025-02-22 21:34] LABS: B Type Natriuretic Peptide 473 pg/mL (<100)
--- NOTE | 2025-02-22 21:41 | P.PNCC_ITS ---
Critical Care Event Note Summary Date of Service: 02/22/25 Code activated: No Narrative: This case had a high probability of a clinically significant, sudden, or life threatening deterioration of this patient's condition which required my full and direct attention, intervention and personal management. Critical Care Time (minutes): 60 Comment: Subjective: ?From the beginning of the shift, this patient was somewhat tachycardic between 120 and up to 130 beats per minute intermittently but becoming more constant in the upper 120s to 130s.? Subsequently the patient bec travis pale, sweaty. ?The patient received 5 mg of Lopressor without much improvement of his heart rate.? Eventually the patient had 2 large bowel movements black in color and foul smell.? He then became hypotensive.? Denied lightheadedness, dizziness, blurry or double vision.? No chest pain, no shortness of breath although he does feel weak and tired.? Denies cough or sputum production abdominal pain. Sepsis exam done at 2100 VS: ?81/63; 118; 20; 94% oxymask; 101.5 F General/neuro:? Alert and oriented x3. Speaking full sentences. Following commands. No focal deficits. Skin: ?Pale. ?Intact, no lesions or rash Cardiac: ?Tachycardic 120 beats per minute. Pulmonary:? Diminished lung sounds bilaterally with fine coarse crackles bilaterally at the basis. Abdomen:? Protuberant, positive bowel sounds in all 4 quadrants.? Soft, non tender. Vascular:? 2+ pulses upper and lower extremities distally.? Less than 2nd capillary refill of the finger and toes bilaterally upper and lower extremities. SIGNIFICANT LABORATORY DATA: ?White count 8.9, hemoglobin 11, hematocrit 30.6, platelets 203. Sodium 133, potassium 4.4, chloride 95, carbon dioxide 28, anion gap 14, BUN 20, creatinine 0.54, random glucose 123, lactic acid 2.2 Calcium 7.9. Albumin 2.9 REVIEW OF IMAGES: Chest x-ray shows Right basilar subsegmental atelectasis. ASSESSMENT: 1. Atrial fibrillation with rapid ventricular response 2. Acute hypotension most likely Hemorrhagic shock due to recurrent G and poor cardiac output rule out sepsis, 3. Upper GI bleed with melanotic stools 4. Hypovolemic hyponatremia 5. Acute kidney injury with BUN to creatinine ratio of 38 due to volume depletion hypoperfusion 6. Acute lactic acidosis likely due to hypoperfusion 7. Mild pulmonary coarseness rule out atelectasis versus aspiration pneumonia 8. Acute hypoalbuminemia PLAN OF CARE: Initially the patient was normotensive, we will try to control the heart rate to obtain better cardiac output by giving him Lopressor 5 mg IV push.? Heart rate continued to be elevated, patient suddenly became hypotensive, developed a fever of 102.? At this point full set of laboratories were obtained including lactic level.? Patient was given 2 small boluses of 500 cc each for a total of a L of LR, did not give him 30 mL/kilogram given the concern of pushing him into CHF; patient already has some pulmonary coarseness and BNP is 473.? Albumin salt 200 cc at 01:33 mL/hour were administered. ?We will monitor H&H and have low thresho ld for transfusion especially as the patient had 2 large watery black stools. Gentle hydration, avoid nephrotoxins It is possible that the patient aspirated during EGD, he developed a fever, there is evidence of right basilar subsegmental atelectasis the patient was started on Zosyn. GI PROPHYLAXIS: IV PPI? DVT PROPHYLAXIS: Pneumatic stocks while in bed. Follow-up sepsis exam 3 a.m. 02/23/2025 General/neuro:? Alert and oriented x3. Speaking full sentences. Following commands. No focal deficits. Skin: ?No longer pale. Intact, no lesions or rash Cardiac: Clear S1-S2 no murmurs, rubs, gallops. Pulmonary:? Diminished lung sounds bilaterally with fine coarsenes. No crackles or rhonchi. Abdomen:? Protuberant, positive bowel sounds in all 4 quadrants.? Soft, non tender. Vascular:? 2+ pulses upper and lower extremities distally.? Less than 2nd capillary refill of the finger and toes bilaterally upper and lower extremities. Continue with the above-mentioned plan. The patient remains on Levophed. We have given him a single unit packed red blood cells and we will recheck after transfusion. He is no longer tachycardic. The patient is likely to require Interventional Radiology re-evaluate for possible embolization if there is active bleeding found. Critical care time used for critical evaluation of this patient, diagnosis, treatment and coordination of care, review her records and documentation TOTAL CRITICAL CARE TIME 75? MIN . discussion and coordination with consultants, completely separate from any procedures performed. Patient's care was discussed in detail with Dr. Johnson who is aware of all the above as well as the plan of care for this patient.
--- NOTE | 2025-02-22 21:42 | PM.SEPBOLA4 ---
Sepsis Bolus Exclusion Sepsis Bolus Exclusion CHF/Renal Failure Date of Occurrence: 02/22/25 Time of Occurrence:: 20:40 This patient met severe sepsis criteria due to the following condition(s):: Hypotension In my clinical judgement the administration of 30 ml/kg of crystalloid would be detrimental to this patient due to the patient's following conditions:: NYHA class III or IV Heart Failure(symptoms with low exertion or rest), Concern for fluid overload and Other Other (must be specific):: Tachycardic, febrile with Bibasilar crackles and increased O2 demand Replace the 30 mls/kg with (Zero amount not acceptable and all fluids for severe sepsis must be given at GREATER than 125 mls/hr) *Note: One of the miller must be documented Crystalloids amount given in mls: (rate must be at least 150cc/hr): 500 Colloids amount given in mls:: 200 At a rate of (must be > 125 cchr):: 133
[2025-02-22] MEDS: Magnesium Sulfate/H2O 2 GM/50 ML PIGGYBACK IV (22:02)
[2025-02-22] MEDS: Norepinephrine Bitartrate/D5W 8 MG/250 ML PLAST..BAG 10.08 MG IVCONT (22:24)
[2025-02-22 23:08] LABS: Reflex Lactate? Lactic Acid Added
--- NOTE | 2025-02-22 23:43 | PC.NURSE ---
Addendum entered by Isak Meraz RN 02/23/25 01:39: PER PROVIDER LEVOPHED MAPGOAL 65..WEANED LEVOPHED FROM 0.05 TO0.03 MCG/KG/MIN...MAP >65...9PM H/H= 11.0/30.6...00:33 H/H 8.8/24.3...PROVIDER UPDATED...PRBC X1 ORDERED AND HUNG Original Note: CARE ASSUMED 7PM..ALERT..ORIENTED X3...SPEECH CLEAR..GENERALIZED WEAKNESS..PATIENT STATES CHRONIC WEAKNESS...O2 6 L/M..SAO2 92-94%....ATRIAL FIB..HR 110'S-120'S..BP STABLE INITIALLY..LOPRESSOR 5MG IV X1 PER MAR/PROVIDER....BP STABLE INITIALLY BUT ONE HOUR LATER SBP 70'S-80'S...FEBRILE WITH T-MAX 102.0 VIA KEMP...STAT LABS/BLOOD CULTURES/CXR DONE PER PROVIDER...LR 500ML X2 BOLUSES...ALBUMEN 25G/100ML X2 INFUSED....ZOSYN 3.375 G PER MAR GIVEN....REMAINED HYPOTENSIVE..STARTED PERIPHERAL LEVOPHED WITH IMPROVED BP....PASSED LARGE LIQUIED BLACK STOOL ON BEDPAN...FOR REPEAT H/H 12AM PER PROVIDER..DENIES DISCOMFORT
--- NOTE | 2025-02-22 23:50 | OP_ITS ---
DATE OF SERVICE: 02/22/2025 SURGEON: Douglas Byers MD INDICATIONS: Upper GI bleeding. PREOPERATIVE DIAGNOSIS: POSTOPERATIVE DIAGNOSIS: PROCEDURE PERFORMED: Upper endoscopy with control of hemorrhage. ESTIMATED BLOOD LOSS: COMPLICATIONS: ANESTHESIA: Monitored anesthesia care. ASSISTANTS: SPECIMENS: DESCRIPTION OF PROCEDURE: A history and physical was performed. The risks and benefits of the procedure were explained to the patient and informed consent was obtained. The patient was placed in the left lateral decubitus position. The Olympus video gastroscope was introduced into the esophagus, stomach, and duodenum. Examination was performed. The scope was removed. He tolerated the procedure well and was returned to the ICU in stable condition. FINDINGS: Esophagus: There was mild distal esophagitis with a nonobstructive Schatzki ring and a sliding hiatal hernia. Stomach: The stomach showed no evidence of masses, ulcers, or polyps. Antral biopsies were obtained. Duodenum: There were multiple duodenal ulcers with a large 2.5 cm deep ulcer with adherent material, which appeared to be food material at the junction of the bulb and 2nd portion on the anterior wall. A forceps was used to remove food material, and the ulcer was irrigated. There was some underlying clot, and as this was irrigated, brisk arterial bleeding was encountered. Next, the gold probe was used to inject epinephrine, a total of 14 mL, (1:10,000) in and around the ulcer with good mucosal blanching. Hemostasis was finally achieved with the use of the gold probe and epinephrine injection. The ulcer did not appear amenable to clip placement. The ulcer was observed for approximately 5 minutes after biopsies were obtained from the antrum after hemostasis had been obtained. There was no further bleeding. The procedure was difficult and extended. IMPRESSION: Large duodenal ulcer with active bleeding as above. RECOMMENDATION: 1. Monitor in ICU. 2. Begin Protonix continuous infusion. 3. Consultation to interventional Radiology for embolization as this appears to be a high risk lesion, and it is likely that repeat endoscopy would be unsuccessful in controlling hemorrhage based on the difficulty with which the initial endoscopy was done. 4. General Surgery consultation. MD SAILAJA Arboleda/FEDERICOL / [id number] MTDManuel
[2025-02-23] VITALS (57 sets, daily range): BP systolic 85–139; BP diastolic 41–74; PULSE 61–110; RESP 13–22; TEMP 37–38; O2SAT 88–100; BMI 35.9
[2025-02-23 00:03] LABS: ~Lactic Acid-LAB USE ONLY 1.1 mmol/L (0.5-2.0)
[2025-02-23 00:47] LABS: Hematocrit 24.3 % (42.0-52.0); Hemoglobin 8.8 g/dl (14.0-18.0)
[2025-02-23] MEDS: Piperacillin Sodium/Tazobactam 3.375 GM in 0.9 % Sodium Chloride 50 ML IV ×4 (03:44→21:18)
[2025-02-23 04:34] LABS: MANUAL DIFF FLAG NO
[2025-02-23 04:35] LABS: Basophils Percent Auto 0.3 % (0-2); Hematocrit 26.4 % (42.0-52.0); Hemoglobin 9.4 g/dl (14.0-18.0); Imm Gran Abs Auto 0.03 X10*3/uL (0.00-0.03); Imm Gran Pct Auto 0.3 % (0.0-0.4); Lymphocytes Percent Auto 11.4 % (20-40); Mean Corpuscular HGB Conc 35.6 g/dl (31.0-36.0); Mean Corpuscular Hemoglobin 32.9 pg (27.0-33.0); Mean Corpuscular Volume 92.3 fL (80.0-98.0); Mean Platelet Volume 9.3 fL (9.4-12.4); Platelet Count 143 X10*3/uL (160-400); Red Blood Count 2.86 X10*6/uL (4.60-5.80); Red Cell Distribution Width 14.1 % (11.0-16.0); White Blood Count 9.1 X10*3/uL (4.8-10.8)
[2025-02-23 04:57] LABS: Albumin Level 3.3 g/dL (3.5-5.0); Anion Gap 13 (12-20); Blood Urea Nitrogen 19 mg/dL (9-16); Carbon Dioxide 30 mmol/L (22-29); Chloride 96 mmol/L (96-108); Creatinine Clr Calc Pharmacy 153.4; Estimated Glomerular Filt Rate > 60; Glucose Random 119 mg/dL (60-115); Magnesium 2.1 mg/dL (1.6-2.6); Potassium 3.8 mmol/L (3.3-5.1); Sodium 135 mmol/L (135-145)
[2025-02-23] MEDS: Lidocaine 4 % Patch ADH..PATCH 2 PATCH TRANSDERMA (07:58)
--- NOTE | 2025-02-23 08:16 | P.CONGS_ITS ---
History of Present Illness Consult details Consult date: 02/28/25 Narrative: 69-year-old male with multiple medical problems including hypertension, neuropathy, EtOH abuse, use disorder, chronic pain, osteoarthritis, depression, chronic back pain, admitted to the ICU on February 20, 2025 because a near syncopal event at home. He was noted to have dark tarry stools. He takes of ibuprofen as well because of his chronic pain. He has a known heavy drinker He was anemic at that time and had undergone excision of four units of packed RBCs. He then had an EGD yesterday and was noted to have a duodenal bulb ulcer with a visible vessel. This has not actively bleeding. He has had no hematemesis. He received 1 unit of packed RBC overnight He has a low dose of Levophed. Review of Systems 2 Constitutional: Constitutional: Denies chills and Denies fever(s) Cardiovascular: Cardiovascular: Denies chest pain Respiratory: Respiratory: Denies cough Gastrointestinal: Gastrointestinal: Denies abdominal pain and Reports melena Genitourinary: Genitourinary: Denies difficulty urinating Musculoskeletal: Musculoskeletal: Reports back pain, Reports myalgias, Reports arthralgias and Reports limited range of motion PMFSH Past Medical History Medical History Upper GI bleed Thiamine deficiency Low folic acid Hypomagnesemia Falls Elevated liver enzymes Cerebral atrophy Ataxia Persistent Paddy pouch cyst Abnormal liver enzymes Thrombocytopenia Elevated PSA, less than 10 ng/ml Obesity (BMI 30-39.9) Alcohol use disorder, moderate, dependence Gait disorder Elevated PSA History of gastritis Degenerative disc disease, lumbar Depression Cervical spondylosis Osteoarthritis Mild hypercholesterolemia Hypertension Opioid use disorder Opioid use disorder Surgical History Surgical History History of colonoscopy (~11/23/14) History of neck surgery History of back surgery Social History Social History Household Members: Spouse Housing: House Do you presently have visiting nurse or other home services: Yes ( is his [employer]) Alcohol intake: current Alcohol intake frequency: 3 or more drinks per day Alcohol type: hard liquor Patient Tobacco Use Status: Former Tobacco user Smoked in Last 30 Days: No Use of substances other than those prescribed or required for medical reasons: No Currently Displaying Signs/Symptoms of Drug Intoxication Withdrawal: No Have you been hit, kicked, punched, or otherwise hurt by someone within the past year? If so, by whom?: No Do you feel safe in your current relationship?: Yes Is there a partner from a previous relationship who is making you feel unsafe now?: No Are you made to feel afraid or neglected: No [employer] Practices: declined Advance Directives: No Advance Directives Information Provided: Yes Do you have a plan to hurt others: No Plan Recently lost weight without trying: Unsure How much weight loss: 2-13 pounds Eating poorly because of decreased appetite: No Nutrition screen score: 3 Nutrition Risks: Difficulty chewing and On aspiration precautions Poor oral hygiene: Yes Meds Allergies Allergy/AdvReac Type Severity Reaction Status Date / Time seasonal Allergy Unknown Itchy Eyes Uncoded 02/20/25 19:33 Active Medications: Current Medications Pantoprazole Sodium 80 mg/ (Sodium Chloride) 100 mls @ 10 mls/hr IV .Q10H [facility]YAN Last Admin: 02/22/25 22:54 Dose: 8 mg/hr, 10 mls/hr Piperacillin Sod/Tazobactam (Sod 3.375 gm/ Sodium Chloride) 50 mls @ 100 mls/hr IV Q6H [facility] Last Admin: 02/23/25 08:02 Dose: 100 mls/hr Norepinephrine Bitartrate (Levophed) 8 mg in 250 mls @ 0 mls/hr IVCONT .Q0M [facility]; Protocol Last Titration: 02/23/25 05:17 Dose: 0.01 mcg/kg/min, 2.02 mls/hr Lidocaine (Lidocaine 4 % Patch Adh..Patch) 2 patch TRANSDERMA DAILY [facility]; Protocol Last Admin: 02/23/25 07:58 Dose: 2 patch Home Medications ?Medication ?Instructions ?Recorded ?Confirmed ?Last Taken ?Type amlodipine 10 mg-benazepril 40 mg 1 cap PO DAILY 08/01/20 02/21/25 02/19/25 History capsule atorvastatin 40 mg tablet 40 mg PO DAILY 11/30/24 02/21/25 02/19/25 History cholecalciferol (vitamin D3) 50 50 mcg PO DAILY 11/30/24 02/21/25 02/19/25 History mcg (2,000 unit) disintegrating tablet folic acid 800 mcg tablet 0.8 mg PO DAILY 01/05/25 02/21/25 02/19/25 History sertraline 25 mg tablet 25 mg PO DAILY 02/21/25 02/21/25 02/19/25 History Physical Exam 2 Vital Signs: Vital Signs: Last Vital Signs Temp 99.0 F 02/23/25 07:00 Pulse 98 02/23/25 07:00 Resp 18 02/23/25 07:00 BP 100/57 L 02/23/25 07:00 Pulse Ox 98 02/23/25 07:00 O2 Del Method Nasal Cannula 02/23/25 07:00 O2 Flow Rate 6 02/23/25 07:00 BMI result Body Mass Index 35.9 Const: General: no acute distress Resp: Other: Mildly short of breath Cardio: Rhythm: regular rhythm GI: Palpation (GI): Soft to palpation, not firm, nontender and no guarding Results Labs 02/28/25 06:39 02/25/25 09:37 Labs: Abnormal lab results 02/20/25 02/22/25 02/23/25 Range/Units 19:55 21:00 00:33 RBC 3.26 L (4.60-5.80) X10*6/uL Hgb 11.0 L 8.8 L (14.0-18.0) g/dl Hct 30.6 L 24.3 L D (42.0-52.0) % MCH 33.7 H (27.0-33.0) pg Plt Count (160-400) X10*3/uL MPV (9.4-12.4) fL Immature Gran % (Auto) 0.5 H (0.0-0.4) % Neut % (Auto) 78.6 H (45-73) % Lymph % (Auto) 8.5 L (20-40) % [place] % (Auto) 12.1 H (2-11) % Lymph # (Auto) 0.8 L (1.2-4.9) X10*3/uL Abs Immat Gran (auto) 0.04 H (0.00-0.03) X10*3/uL Sodium 133 L (135-145) mmol/L Chloride 95 L (96-108) mmol/L Carbon Dioxide (22-29) mmol/L BUN 20 H (9-16) mg/dL Random Glucose 123 H (60-115) mg/dL Lactic Acid 2.2 H* (0.5-2.0) mmol/L Calcium 7.9 L (8.4-10.2) mg/dL AST 43 H (5-37) U/L B-Natriuretic Peptide 473 H (<100) pg/mL Total Protein 5.3 L (6.5-8.0) g/dL Albumin 2.9 L (3.5-5.0) g/dL Crossmatch See Detail 02/23/25 Range/Units 04:27 RBC 2.86 L (4.60-5.80) X10*6/uL Hgb 9.4 L (14.0-18.0) g/dl Hct 26.4 L (42.0-52.0) % MCH (27.0-33.0) pg Plt Count 143 L D (160-400) X10*3/uL MPV 9.3 L (9.4-12.4) fL Immature Gran % (Auto) (0.0-0.4) % Neut % (Auto) 77.0 H (45-73) % Lymph % (Auto) 11.4 L (20-40) % [place] % (Auto) (2-11) % Lymph # (Auto) 1.0 L (1.2-4.9) X10*3/uL Abs Immat Gran (auto) (0.00-0.03) X10*3/uL Sodium (135-145) mmol/L Chloride (96-108) mmol/L Carbon Dioxide 30 H (22-29) mmol/L BUN 19 H (9-16) mg/dL Random Glucose 119 H (60-115) mg/dL Lactic Acid (0.5-2.0) mmol/L Calcium 8.0 L (8.4-10.2) mg/dL AST (5-37) U/L B-Natriuretic Peptide (<100) pg/mL Total Protein (6.5-8.0) g/dL Albumin 3.3 L (3.5-5.0) g/dL Crossmatch Short CBC 02/22/25 02/23/25 02/23/25 Range/Units 21:00 00:33 04:27 WBC 8.9 9.1 (4.8-10.8) X10*3/uL Hgb 11.0 L 8.8 L 9.4 L (14.0-18.0) g/dl Hct 30.6 L 24.3 L D 26.4 L (42.0-52.0) % Plt Count 203 143 L D (160-400) X10*3/uL BMP 02/22/25 02/23/25 21:00 04:27 Sodium 133 L 135 Potassium 4.4 D 3.8 Chloride 95 L 96 Carbon Dioxide 28 30 H BUN 20 H 19 H Creatinine 0.54 0.54 Calcium 7.9 L 8.0 L Liver Function 02/22/25 02/23/25 Range/Units 21:00 04:27 Total Bilirubin 1.0 (0.0-1.0) mg/dL AST 43 H (5-37) U/L ALT 18 (0-40) U/L Alkaline Phosphatase 60 (39-117) U/L Albumin 2.9 L 3.3 L (3.5-5.0) g/dL Urine 02/20/25 Range/Units 23:01 Urine Color Yellow Urine Appearance Clear Urine pH 6.0 (5.0-9.0) Ur Specific [place] <= 1.005 (1.005-1.025) Urine Protein Negative (Neg-Trace) mg/dL Urine Glucose (UA) Negative (Negative) mg/dL All other labs normal. Assessment and Plan (1) Upper GI bleed: Status: Acute This is likely due to the duodenal bulb ulcer seen on endoscopy. He does have risk factor for this including alcohol use, and chronic NSAID treatment for issues His hemoglobin today is 9.4 Best course of therapy for him with repeat active bleeding would be embolization via IR. I had discussed this with the at bedside. All blood thinners including heparin products should be avoided at this point. He is currently on proton pump inhibitor. NSAIDs should not be given Procedures Date of Service Date of Service: 02/28/25
[2025-02-23] MEDS: fentaNYL citrate/PF 100 MCG/2 ML VIAL 50 MCG IVPUSH ×4 (08:25→17:40)
[2025-02-23] MEDS: Pantoprazole Sodium 80 MG in 0.9 % Sodium Chloride 80 ML 10 MG IV ×2 (08:34→19:40)
[2025-02-23 09:04] LABS: Hematocrit 25.1 % (42.0-52.0); Hemoglobin 9.1 g/dl (14.0-18.0)
--- NOTE | 2025-02-23 09:52 | HO.POSTANES ---
Post Anesthesia Evaluation Post Anesthesia Evaluation Date of Service: 02/23/25 Vital Signs: Vital Signs Temp Pulse Resp BP Pulse Ox O2 Del Method O2 Flow Rate 02/23/25 09:00 99.0 F 92 15 103/65 98 Nasal Cannula 6 02/23/25 08:00 99.0 F 89 20 96/58 L 97 Nasal Cannula 6 02/23/25 07:00 99.0 F 98 18 100/57 L 98 Nasal Cannula 6 02/23/25 06:00 91 17 99/57 L 98 Nasal Cannula 6 02/23/25 06:00 99.2 F 100 18 105/61 95 Nasal Cannula 5 02/23/25 05:17 96 109/69 02/23/25 05:00 99.3 F 92 20 102/61 98 Nasal Cannula 5 02/23/25 04:05 100.2 F 100 20 109/50 L 02/23/25 04:00 99.7 F 93 13 110/66 96 Nasal Cannula 6 02/23/25 03:49 99.9 F 96 20 108/68 02/23/25 03:00 100.2 F 102 H 17 101/74 95 Nasal Cannula 6 02/23/25 02:28 98 102/65 02/23/25 01:59 100.4 F 103 H 20 111/62 98 Nasal Cannula 6 02/23/25 01:51 100.2 F 100 20 106/60 02/23/25 01:29 100.4 F 110 H 20 99/61 02/23/25 01:00 100.4 F 103 H 19 95/64 99 Nasal Cannula 6 02/23/25 00:06 102 H 114/64 02/23/25 00:00 100.4 F 99 14 114/64 97 Nasal Cannula 6 02/22/25 23:00 100.6 F H 94 21 H 105/62 99 Nasal Cannula 6 02/22/25 22:24 112 H 87/50 L 02/22/25 22:00 100.9 F H 106 H 18 93/52 L 99 Oxymask 8 Anesthesia: Monitored Mental Status: Awake Pain Control: Satisfactory Nausea/Vomiting: None Hydration: Adequate Anesthesia-Related Issues: No Anes. Related Issues
--- NOTE | 2025-02-23 11:15 | P.PNCC_ITS ---
Subjective Subjective Date of Service: 02/23/25 Interval History: 69-year-old gentleman with underlying history of hypertension, neuropathy, alcohol dependence, hepatic steatosis, opiate dependence admitted on 02/20/2025 after a syncopal event with large melanotic bowel. On ER evaluation patient hypotensive, though responded well to IV fluids. Initial hemoglobin of 10, transfused 4 units of packed red blood cells with appropriate response. Gastroenterology service consulted and patient is planned for EGD later today. Overnight with rebleeding, dropped hemoglobin 3 g, transfuse 1 unit of packed red blood cells, requiring pressor support. Critical Care Time (minutes): 60 Physical Exam 2 Vital Signs: Vital Signs: Last Vital Signs Temp 99.1 F 02/23/25 11:00 Pulse 95 02/23/25 11:00 Resp 20 02/23/25 11:00 BP 92/51 L 02/23/25 11:00 Pulse Ox 91 L 02/23/25 11:00 O2 Del Method Nasal Cannula 02/23/25 11:00 O2 Flow Rate 6 02/23/25 11:00 BMI result Body Mass Index 35.9 Const: General: no acute distress, alert and awake Eyes: Sclerae: sclerae normal EOM: EOMs intact bilaterally Neck: Neck: Yes no lymphadenopathy, Yes trachea midline and Yes supple Resp: Effort & Inspection: normal respiratory effort and no respiratory distress Auscultation: crackles (Bilateral) Cardio: Rate: regular rate Rhythm: regular rhythm Heart sounds: no gallops, no murmurs and no rubs GI: Palpation (GI): Soft to palpation and Other GI palpation findings present ( Nontender) Auscultation: normal bowel sounds Extrem: General: Yes no pedal edema, No clubbing and No cyanosis Objective Data Labs 02/23/25 08:55 02/23/25 04:27 Labs: Laboratory Results - last 24 hr 02/20/25 02/22/25 02/22/25 19:55 21:00 23:39 WBC 8.9 RBC 3.26 L Hgb 11.0 L Hct 30.6 L MCV 93.9 MCH 33.7 H MCHC 35.9 RDW 14.0 Plt Count 203 MPV 9.7 Immature Gran % (Auto) 0.5 H Neut % (Auto) 78.6 H Lymph % (Auto) 8.5 L [place] % (Auto) 12.1 H Eos % (Auto) 0.1 Baso % (Auto) 0.2 Lymph # (Auto) 0.8 L [place] # (Auto) 1.1 Eos # (Auto) 0.0 Baso # (Auto) 0.0 Abs Immat Gran (auto) 0.04 H Absolute Neuts (auto) 7.0 Absolute Nucleated RBC 0.000 Nucleated RBC % (auto) 0.0 Sodium 133 L Potassium 4.4 D Chloride 95 L Carbon Dioxide 28 Anion Gap 14 BUN 20 H Creatinine 0.54 Estim Creat Clear Calc 153.4 Estimated GFR > 60 Random Glucose 123 H Lactic Acid 2.2 H* Lactic Acid F/U @ 2Hr 1.1 Calcium 7.9 L Phosphorus Magnesium Total Bilirubin 1.0 AST 43 H ALT 18 Alkaline Phosphatase 60 B-Natriuretic Peptide 473 H Total Protein 5.3 L Albumin 2.9 L Blood Type O Positive Antibody Screen NEGATIVE Crossmatch See Detail 02/23/25 02/23/25 02/23/25 00:33 04:27 08:55 WBC 9.1 RBC 2.86 L Hgb 8.8 L 9.4 L 9.1 L Hct 24.3 L D 26.4 L 25.1 L MCV 92.3 MCH 32.9 MCHC 35.6 RDW 14.1 Plt Count 143 L D MPV 9.3 L Immature Gran % (Auto) 0.3 Neut % (Auto) 77.0 H Lymph % (Auto) 11.4 L [place] % (Auto) 11.0 Eos % (Auto) 0.0 Baso % (Auto) 0.3 Lymph # (Auto) 1.0 L [place] # (Auto) 1.0 Eos # (Auto) 0.0 Baso # (Auto) 0.0 Abs Immat Gran (auto) 0.03 Absolute Neuts (auto) 7.0 Absolute Nucleated RBC 0.000 Nucleated RBC % (auto) 0.0 Sodium 135 Potassium 3.8 Chloride 96 Carbon Dioxide 30 H Anion Gap 13 BUN 19 H Creatinine 0.54 Estim Creat Clear Calc 153.4 Estimated GFR > 60 Random Glucose 119 H Lactic Acid Lactic Acid F/U @ 2Hr Calcium 8.0 L Phosphorus 3.0 Magnesium 2.1 Total Bilirubin AST ALT Alkaline Phosphatase B-Natriuretic Peptide Total Protein Albumin 3.3 L Blood Type Antibody Screen Crossmatch Progress Note: A&P Assessment and plan (1) Alcohol use disorder: Status: Acute (2) Acute upper gastrointestinal bleeding: Status: Acute (3) Hemorrhagic shock: Status: Acute Plan Assessment: 69-year-old gentleman with underlying alcohol dependence admitted with initial hypotension and syncopal episode after large melanotic bowel movement Plan: Neuro: No acute issues. Cardiac: Hemorrhagic shock, continue to titrate off as tolerated. Pulmonary: No acute issues. Renal: No acute issues. Endo: No acute issues. GI: Upper GI bleed. Gastroenterology service care appreciated. Status post EGD with demonstration of high-risk duodenal bulb ulcer. Rebleeding overnight and, now planned for IR embolization. Continue PPI. ID: No acute issues Heme/Onc: Continue to monitor hemoglobin. Transfusion threshold of 7. Psych: No acute issues. Miscellaneous: No acute issues. Prophylaxis: Pneumatic compression Diet: NPO Critical care time spent: 60 minutes. Quality Stroke Does the patient have a stroke diagnosis?: No VTE Prior VTE?: No VTE Risk Level:: Medical - moderate - high VTE Device Contraindication: N/A - Device Ordered VTE Drug Contraindication: Treatment Not Indicated
--- NOTE | 2025-02-23 12:07 | PC.NURSE ---
informed of pt's pain. fent given w/ + effect. Pt transported to IR around 1130, report given to IR tech
[2025-02-23] MEDS: Midazolam HCl 2 MG/2 ML VIAL 1 MG IVPUSH (12:30)
--- NOTE | 2025-02-23 13:15 | HO.WOUND ---
Wound Consult: Attempted Arrival to unit patient was off unit in IR for procedure - will attempt assessment at future date or time.
--- NOTE | 2025-02-23 15:59 | PM.EVENT ---
Event Note Date of Service: 02/28/25 Event Note: Seen on afternoon rounds Seems hemodynamically stable Underwent IR embolization this afternoon Abdomen is soft Discussed above with family Follow H&H ICU care Time Spent With Patient Time: Total time managing care of this patient today ____ minutes.
--- NOTE | 2025-02-23 16:23 | PM.GIPN ---
Subjective Subjective Date of Service: 02/23/25 Interval History: seen in IR more bleeding overnight per Myriam Critical Care Time (minutes): 30 Physical Exam Vital Signs: Vital Signs: Last Vital Signs Temp 98.6 F 02/23/25 16:00 Pulse 107 H 02/23/25 16:00 Resp 19 02/23/25 16:00 BP 97/58 L 02/23/25 16:00 Pulse Ox 100 02/23/25 16:00 O2 Del Method Nasal Cannula 02/23/25 16:00 O2 Flow Rate 5 02/23/25 16:00 BMI result Body Mass Index 35.9 vs reviewed PE deferred as undergoing embolization Objective Data Labs 02/23/25 22:04 02/23/25 04:27 Labs: Laboratory Results - last 24 hr 02/20/25 02/22/25 02/22/25 19:55 21:00 23:39 WBC 8.9 RBC 3.26 L Hgb 11.0 L Hct 30.6 L MCV 93.9 MCH 33.7 H MCHC 35.9 RDW 14.0 Plt Count 203 MPV 9.7 Immature Gran % (Auto) 0.5 H Neut % (Auto) 78.6 H Lymph % (Auto) 8.5 L [place] % (Auto) 12.1 H Eos % (Auto) 0.1 Baso % (Auto) 0.2 Lymph # (Auto) 0.8 L [place] # (Auto) 1.1 Eos # (Auto) 0.0 Baso # (Auto) 0.0 Abs Immat Gran (auto) 0.04 H Absolute Neuts (auto) 7.0 Absolute Nucleated RBC 0.000 Nucleated RBC % (auto) 0.0 Sodium 133 L Potassium 4.4 D Chloride 95 L Carbon Dioxide 28 Anion Gap 14 BUN 20 H Creatinine 0.54 Estim Creat Clear Calc 153.4 Estimated GFR > 60 Random Glucose 123 H Lactic Acid 2.2 H* Lactic Acid F/U @ 2Hr 1.1 Calcium 7.9 L Phosphorus Magnesium Total Bilirubin 1.0 AST 43 H ALT 18 Alkaline Phosphatase 60 B-Natriuretic Peptide 473 H Total Protein 5.3 L Albumin 2.9 L Blood Type O Positive Antibody Screen NEGATIVE Crossmatch See Detail 02/23/25 02/23/25 02/23/25 00:33 04:27 08:55 WBC 9.1 RBC 2.86 L Hgb 8.8 L 9.4 L 9.1 L Hct 24.3 L D 26.4 L 25.1 L MCV 92.3 MCH 32.9 MCHC 35.6 RDW 14.1 Plt Count 143 L D MPV 9.3 L Immature Gran % (Auto) 0.3 Neut % (Auto) 77.0 H Lymph % (Auto) 11.4 L [place] % (Auto) 11.0 Eos % (Auto) 0.0 Baso % (Auto) 0.3 Lymph # (Auto) 1.0 L [place] # (Auto) 1.0 Eos # (Auto) 0.0 Baso # (Auto) 0.0 Abs Immat Gran (auto) 0.03 Absolute Neuts (auto) 7.0 Absolute Nucleated RBC 0.000 Nucleated RBC % (auto) 0.0 Sodium 135 Potassium 3.8 Chloride 96 Carbon Dioxide 30 H Anion Gap 13 BUN 19 H Creatinine 0.54 Estim Creat Clear Calc 153.4 Estimated GFR > 60 Random Glucose 119 H Lactic Acid Lactic Acid F/U @ 2Hr Calcium 8.0 L Phosphorus 3.0 Magnesium 2.1 Total Bilirubin AST ALT Alkaline Phosphatase B-Natriuretic Peptide Total Protein Albumin 3.3 L Blood Type Antibody Screen Crossmatch Procedures Date of Service Date of Service: 02/23/25 Progress Note: A&P Assessment and plan (1) Hemorrhagic shock: Status: Acute Assessment and Plan: rebleeding from duodenal ulcer with hemorrhagic shock pressors as required cont ppi agree with embolization monitor hct supportive care repeat EGD unlikely to be useful based on present course and findings. Discussed with Dr Mayes. Time Spent With Patient Time: Total time managing care of this patient today ____ minutes. Quality Stroke Does the patient have a stroke diagnosis?: No VTE Prior VTE?: No VTE Risk Level:: Medical - moderate - high VTE Device Contraindication: N/A - Device Ordered VTE Drug Contraindication: Treatment Not Indicated
[2025-02-23 18:07] LABS: MANUAL DIFF FLAG NO
[2025-02-23 18:08] LABS: Basophils Percent Auto 0.3 % (0-2); Eosinophils Percent Auto 0.4 % (0-4); Hematocrit 21.6 % (42.0-52.0); Hemoglobin 7.8 g/dl (14.0-18.0); Imm Gran Abs Auto 0.03 X10*3/uL (0.00-0.03); Imm Gran Pct Auto 0.4 % (0.0-0.4); Lymphocytes Absolute Auto 1.2 X10*3/uL (1.2-4.9); Lymphocytes Percent Auto 15.9 % (20-40); Mean Corpuscular HGB Conc 36.1 g/dl (31.0-36.0); Mean Corpuscular Hemoglobin 33.3 pg (27.0-33.0); Mean Corpuscular Volume 92.3 fL (80.0-98.0); Mean Platelet Volume 9.1 fL (9.4-12.4); Monocytes Absolute Auto 0.7 X10*3/uL (0.1-1.2); Monocytes Percent Auto 9.3 % (2-11); Neutrophils Absolute Auto 5.4 x10*3/uL (2.0-8.3); Neutrophils Percent Auto 73.7 % (45-73); Platelet Count 121 X10*3/uL (160-400); Red Blood Count 2.34 X10*6/uL (4.60-5.80); Red Cell Distribution Width 14.3 % (11.0-16.0); White Blood Count 7.3 X10*3/uL (4.8-10.8)
[2025-02-23 22:11] LABS: Hematocrit 21.6 % (42.0-52.0); Hemoglobin 7.9 g/dl (14.0-18.0)
[2025-02-24] VITALS (21 sets, daily range): BP systolic 90–144; BP diastolic 57–77; PULSE 94–119; RESP 14–21; TEMP 36.9–37.5; O2SAT 67–97; BMI 35.9
[2025-02-24 01:11] LABS: Hematocrit 21.6 % (42.0-52.0); Hemoglobin 7.8 g/dl (14.0-18.0)
[2025-02-24] MEDS: Piperacillin Sodium/Tazobactam 3.375 GM in 0.9 % Sodium Chloride 50 ML IV ×2 (02:26→08:03)
[2025-02-24] MEDS: Pantoprazole Sodium 80 MG in 0.9 % Sodium Chloride 80 ML 10 MG IV ×2 (04:37→14:02)
[2025-02-24 04:51] LABS: VBG Base Excess 20.7 mmol/L; VBG HCO3 46 mmol/L (22-26); VBG pCO2 51 mmHg; VBG pH 7.55 (7.32-7.43); VBG pO2 38 mmHg
[2025-02-24 04:52] LABS: MANUAL DIFF FLAG NO
[2025-02-24 04:53] LABS: Basophils Percent Auto 0.4 % (0-2); Eosinophils Absolute Auto 0.1 X10*3/uL (0.0-0.4); Eosinophils Percent Auto 0.8 % (0-4); Hematocrit 22.7 % (42.0-52.0); Hemoglobin 7.9 g/dl (14.0-18.0); Imm Gran Abs Auto 0.03 X10*3/uL (0.00-0.03); Imm Gran Pct Auto 0.4 % (0.0-0.4); Lymphocytes Absolute Auto 0.9 X10*3/uL (1.2-4.9); Lymphocytes Percent Auto 13.1 % (20-40); Mean Corpuscular HGB Conc 34.8 g/dl (31.0-36.0); Mean Corpuscular Hemoglobin 33.1 pg (27.0-33.0); Monocytes Absolute Auto 0.6 X10*3/uL (0.1-1.2); Monocytes Percent Auto 8.9 % (2-11); Neutrophils Absolute Auto 5.5 x10*3/uL (2.0-8.3); Neutrophils Percent Auto 76.4 % (45-73); Platelet Count 129 X10*3/uL (160-400); Red Blood Count 2.39 X10*6/uL (4.60-5.80); Red Cell Distribution Width 13.9 % (11.0-16.0); White Blood Count 7.2 X10*3/uL (4.8-10.8)
[2025-02-24 05:17] LABS: Alanine Aminotransferase 8 U/L (0-40); Albumin Level 2.9 g/dL (3.5-5.0); Alkaline Phosphatase 42 U/L (39-117); Anion Gap 17 (12-20); Aspartate Amino Transferase 26 U/L (5-37); Bilirubin Total 0.8 mg/dL (0.0-1.0); Blood Urea Nitrogen 11 mg/dL (9-16); Carbon Dioxide 30 mmol/L (22-29); Chloride 97 mmol/L (96-108); Creatinine Clr Calc Pharmacy 192.3; Estimated Glomerular Filt Rate > 60; Glucose Random 86 mg/dL (60-115); Magnesium 1.7 mg/dL (1.6-2.6); Phosphorus 3.6 mg/dL (2.7-4.5); Potassium 3.9 mmol/L (3.3-5.1); Sodium 140 mmol/L (135-145); Total Protein 4.9 g/dL (6.5-8.0)
[2025-02-24 05:23] LABS: Venous Blood Gas Refer to POC result
--- NOTE | 2025-02-24 07:59 | P.PNGS_ITS ---
Subjective Subjective Date of Service: 02/24/25 Interval history: Complains of generalized pain. Dark tarry stools overnight no silvano blood. Physical Exam 2 Vital Signs: Vital Signs: Last Vital Signs Temp 99.0 F 02/24/25 07:00 Pulse 100 02/24/25 07:00 Resp 18 02/24/25 07:00 BP 107/70 02/24/25 07:00 Pulse Ox 92 02/24/25 07:00 O2 Del Method Nasal Cannula 02/24/25 07:00 O2 Flow Rate 1 02/24/25 07:00 BMI result Body Mass Index 35.9 Const: General: comfortable, no acute distress and alert O rientation/consciousness: patient oriented x3 Resp: Effort & Inspection: normal respiratory effort GI: Inspection: Yes normal to inspection and No distended Palpation (GI): S oft to palpation, Tenderness to palpation present (GI) (mild upper abd tenderness) and no guarding Percussion: Yes normal to percussion Skin: General skin exam: no rashes or lesions noted Neuro: General: patient oriented x3 Objective Data Active Medications Fentanyl (Fentanyl Citrate/Pf 100 Mcg/2 Ml Vial) 50 mcg IVPUSH Q2H PRN; Protocol PRN Reason: Pain, Severe (Pain Scale 7-10) Last Admin: 02/23/25 17:40 Dose: 50 mcg Documented By: TITI Pantoprazole Sodium 80 mg/ (Sodium Chloride) 100 mls @ 10 mls/hr IV .Q10H [facility] Last Admin: 02/24/25 04:37 Dose: 8 mg/hr, 10 mls/hr Documented By: SOILA Piperacillin Sod/Tazobactam (Sod 3.375 gm/ Sodium Chloride) 50 mls @ 100 mls/hr IV Q6H [facility] Last Infusion: 02/24/25 02:43 Dose: Infused Documented By: SOILA Norepinephrine Bitartrate (Levophed) 8 mg in 250 mls @ 0 mls/hr IVCONT .Q0M [facility]; Protocol Last Titration: 02/23/25 19:25 Dose: 0 mcg/kg/min, 0 mls/hr Documented By: SOILA Lidocaine (Lidocaine 4 % Patch Adh..Patch) 2 patch TRANSDERMA DAILY [facility]; Protocol Last Admin: 02/23/25 07:58 Dose: 2 patch Documented By: HAI Sodium Chloride (0.9 % Sodium Chloride Flush 3 Ml Syringe) 3 ml IVFLUSH QSHIFT [facility] Last Admin: 02/24/25 07:24 Dose: Not Given Documented By: LEONID Non-Admin Reason: IV Running Labs 02/24/25 04:46 02/24/25 04:46 Labs: Laboratory Results - last 24 hr 02/23/25 02/24/25 02/24/25 18:03 04:46 04:47 MCV 92.3 95.0 MCH 33.3 H 33.1 H MCHC 36.1 H 34.8 RDW 14.3 13.9 Plt Count 121 L 129 L MPV 9.1 L 10.0 Immature Gran % (Auto) 0.4 0.4 Neut % (Auto) 73.7 H 76.4 H Lymph % (Auto) 15.9 L 13.1 L [place] % (Auto) 9.3 8.9 Eos % (Auto) 0.4 0.8 Baso % (Auto) 0.3 0.4 Lymph # (Auto) 1.2 0.9 L [place] # (Auto) 0.7 0.6 Eos # (Auto) 0.0 0.1 Baso # (Auto) 0.0 0.0 Abs Immat Gran (auto) 0.03 0.03 Absolute Neuts (auto) 5.4 5.5 Absolute Nucleated RBC 0.000 0.000 Nucleated RBC % (auto) 0.0 0.0 VBG pH 7.55 H VBG pCO2 51 VBG pO2 38 VBG HCO3 46 H VBG O2 Saturation 67.0 VBG Base Excess 20.7 Anion Gap 17 Estim Creat Clear Calc 192.3 Estimated GFR > 60 Random Glucose 86 Calcium 8.0 L Phosphorus 3.6 Magnesium 1.7 Total Bilirubin 0.8 AST 26 ALT 8 Alkaline Phosphatase 42 Total Protein 4.9 L Albumin 2.9 L Microbiology Microbiology Results: Microbiology 02/22/25 21:00 Blood Culture - Preliminary Blood - Venous No growth after 24 hours. 02/22/25 21:00 Blood Culture - Preliminary Blood - Venous No growth after 24 hours. Procedures Date of Service Date of Service: 02/24/25 Progress Note: A&P Assessment and plan (1) Upper GI bleed: Status: Acute Plan Upper GI bleed who underwent IR embolization yesterday. Patient reports mild discomfort this am, abd benign and soft. H/H stable overnight. Off pressors. No evidence of rebleed. Continue to monitor closely. Time Spent With Patient Time: Total time managing care of this patient today ____ minutes. Quality Stroke Does the patient have a stroke diagnosis?: No VTE Prior VTE?: No VTE Risk Level:: Medical - moderate - high VTE Device Contraindication: N/A - Device Ordered VTE Drug Contraindication: Treatment Not Indicated
[2025-02-24] MEDS: Lidocaine 4 % Patch ADH..PATCH 2 PATCH TRANSDERMA (08:04)
[2025-02-24] MEDS: Morphine Sulfate 2 MG/ML CARTRIDGE 1 MG IVPUSH ×4 (08:27→20:57)
--- NOTE | 2025-02-24 10:15 | PM.CCPN ---
Subjective Subjective Date of Service: 02/24/25 Interval History: 69-year-old gentleman with underlying history of hypertension, neuropathy, alcohol dependence, hepatic steatosis, opiate dependence admitted on 02/20/2025 after a syncopal event with large melanotic bowel. On ER evaluation patient hypotensive, though responded well to IV fluids. Initial hemoglobin of 10, transfused 4 units of packed red blood cells with appropriate response. Status post EGD on 02/2025 with demonstration of duodenal ulcer status post coagulation. Required embolization on 02/23/2025. No rebleeding overnight. Hemoglobin stable. Titrated off pressor support. Critical Care Time (minutes): 45 Physical Exam Vital Signs: Vital Signs: Last Vital Signs Temp 99.0 F 02/24/25 09:00 Pulse 95 02/24/25 09:00 Resp 18 02/24/25 09:00 BP 114/70 02/24/25 09:00 Pulse Ox 94 02/24/25 09:00 O2 Del Method Nasal Cannula 02/24/25 09:00 O2 Flow Rate 1 02/24/25 09:00 BMI result Body Mass Index 35.9 Const: General: no acute distress, alert and awake Eyes: Sclerae: sclerae normal EOM: EOMs intact bilaterally Neck: Neck: Yes no lymphadenopathy, Yes trachea midline and Yes supple Resp: Effort & Inspection: normal respiratory effort and no respiratory distress Auscultation: clear to auscultation bilaterally Cardio: Rate: tachycardic Rhythm: regular rhythm Heart sounds: no gallops, no murmurs and no rubs GI: Palpation (GI): Soft to palpation and Other GI palpation findings present ( Nontender) Auscultation: normal bowel sounds Extrem: General: Yes no pedal edema, No clubbing and No cyanosis Objective Data Labs 02/24/25 04:46 02/24/25 04:46 Labs: Laboratory Results - last 24 hr 02/23/25 02/23/25 02/24/25 18:03 22:04 01:06 WBC 7.3 RBC 2.34 L Hgb 7.8 L 7.9 L 7.8 L Hct 21.6 L 21.6 L 21.6 L MCV 92.3 MCH 33.3 H MCHC 36.1 H RDW 14.3 Plt Count 121 L MPV 9.1 L Immature Gran % (Auto) 0.4 Neut % (Auto) 73.7 H Lymph % (Auto) 15.9 L [place] % (Auto) 9.3 Eos % (Auto) 0.4 Baso % (Auto) 0.3 Lymph # (Auto) 1.2 [place] # (Auto) 0.7 Eos # (Auto) 0.0 Baso # (Auto) 0.0 Abs Immat Gran (auto) 0.03 Absolute Neuts (auto) 5.4 Absolute Nucleated RBC 0.000 Nucleated RBC % (auto) 0.0 VBG pH VBG pCO2 VBG pO2 VBG HCO3 VBG O2 Saturation VBG Base Excess Sodium Potassium Chloride Carbon Dioxide Anion Gap BUN Creatinine Estim Creat Clear Calc Estimated GFR Random Glucose Calcium Phosphorus Magnesium Total Bilirubin AST ALT Alkaline Phosphatase Total Protein Albumin 02/24/25 02/24/25 04:46 04:47 WBC 7.2 RBC 2.39 L Hgb 7.9 L Hct 22.7 L MCV 95.0 MCH 33.1 H MCHC 34.8 RDW 13.9 Plt Count 129 L MPV 10.0 Immature Gran % (Auto) 0.4 Neut % (Auto) 76.4 H Lymph % (Auto) 13.1 L [place] % (Auto) 8.9 Eos % (Auto) 0.8 Baso % (Auto) 0.4 Lymph # (Auto) 0.9 L [place] # (Auto) 0.6 Eos # (Auto) 0.1 Baso # (Auto) 0.0 Abs Immat Gran (auto) 0.03 Absolute Neuts (auto) 5.5 Absolute Nucleated RBC 0.000 Nucleated RBC % (auto) 0.0 VBG pH 7.55 H VBG pCO2 51 VBG pO2 38 VBG HCO3 46 H VBG O2 Saturation 67.0 VBG Base Excess 20.7 Sodium 140 Potassium 3.9 Chloride 97 Carbon Dioxide 30 H Anion Gap 17 BUN 11 Creatinine 0.43 L Estim Creat Clear Calc 192.3 Estimated GFR > 60 Random Glucose 86 Calcium 8.0 L Phosphorus 3.6 Magnesium 1.7 Total Bilirubin 0.8 AST 26 ALT 8 Alkaline Phosphatase 42 Total Protein 4.9 L Albumin 2.9 L Microbiology Microbiology Results: Microbiology 02/22/25 21:00 Blood - Venous Blood Culture - Preliminary No growth after 24 hours. 02/22/25 21:00 Blood - Venous Blood Culture - Preliminary No growth after 24 hours. Progress Note: A&P Assessment and plan (1) Alcohol use disorder, moderate, dependence: Status: Acute (2) Upper GI bleed: Status: Acute (3) Acute blood loss anemia: Status: Acute Plan Assessment: 69-year-old gentleman with underlying alcohol dependence admitted with initial hypotension and syncopal episode after large melanotic bowel movement Plan: Neuro: No acute issues. Cardiac: Hemorrhagic shock, resolved, titrated off pressor support. Pulmonary: No acute issues. Renal: No acute issues. Endo: No acute issues. GI: Upper GI bleed. Gastroenterology service care appreciated. Status post EGD with demonstration of high-risk duodenal bulb ulcer. Status post embolization 02/23/2025. No rebleeding overnight. Continue PPI. ID: No acute issues Heme/Onc: Hemoglobin stabilized. Continue to monitor hemoglobin. Transfusion threshold of 7. Psych: No acute issues. Miscellaneous: No acute issues. Prophylaxis: Pneumatic compression Diet: Full liquid Critical care time spent: 45 minutes. Quality Stroke Does the patient have a stroke diagnosis?: No VTE Prior VTE?: No VTE Risk Level:: Medical - moderate - high VTE Device Contraindication: N/A - Device Ordered VTE Drug Contraindication: Treatment Not Indicated
[2025-02-24 12:00] LABS: Hematocrit 21.2 % (42.0-52.0); Hemoglobin 7.5 g/dl (14.0-18.0)
--- NOTE | 2025-02-24 13:03 | MHC.CM.PN ---
Met with pt and spouse about d/c concerns: spouse does not feel she can physically assist pt with his weakness and overall deconditioning. Pt is very resistive to placement but would consider acute rehab and feels he will be able to tolerate 3 hours of therapy per day. Referrals made to all 3 sites: PT/OT evals ordered. CM to follow.
--- NOTE | 2025-02-24 13:10 | P.PNGI_ITS ---
Subjective Subjective Date of Service: 02/24/25 Interval History: No complaints of abdominal pain Critical Care Time (minutes): 30 Physical Exam 2 Vital Signs: Vital Signs: Last Vital Signs Temp 99.0 F 02/24/25 12:00 Pulse 95 02/24/25 12:00 Resp 15 02/24/25 12:00 BP 144/74 H 02/24/25 12:00 Pulse Ox 93 02/24/25 12:00 O2 Del Method Nasal Cannula 02/24/25 12:00 O2 Flow Rate 2 02/24/25 12:00 BMI result Body Mass Index 35.9 Const: Other: abdomen is soft and nontender Objective Data Labs 02/24/25 11:52 02/24/25 04:46 Labs: Laboratory Results - last 24 hr 02/23/25 02/23/25 02/24/25 18:03 22:04 01:06 WBC 7.3 RBC 2.34 L Hgb 7.8 L 7.9 L 7.8 L Hct 21.6 L 21.6 L 21.6 L MCV 92.3 MCH 33.3 H MCHC 36.1 H RDW 14.3 Plt Count 121 L MPV 9.1 L Immature Gran % (Auto) 0.4 Neut % (Auto) 73.7 H Lymph % (Auto) 15.9 L [place] % (Auto) 9.3 Eos % (Auto) 0.4 Baso % (Auto) 0.3 Lymph # (Auto) 1.2 [place] # (Auto) 0.7 Eos # (Auto) 0.0 Baso # (Auto) 0.0 Abs Immat Gran (auto) 0.03 Absolute Neuts (auto) 5.4 Absolute Nucleated RBC 0.000 Nucleated RBC % (auto) 0.0 VBG pH VBG pCO2 VBG pO2 VBG HCO3 VBG O2 Saturation VBG Base Excess Sodium Potassium Chloride Carbon Dioxide Anion Gap BUN Creatinine Estim Creat Clear Calc Estimated GFR Random Glucose Calcium Phosphorus Magnesium Total Bilirubin AST ALT Alkaline Phosphatase Total Protein Albumin 02/24/25 02/24/25 02/24/25 04:46 04:47 11:52 WBC 7.2 RBC 2.39 L Hgb 7.9 L 7.5 L Hct 22.7 L 21.2 L MCV 95.0 MCH 33.1 H MCHC 34.8 RDW 13.9 Plt Count 129 L MPV 10.0 Immature Gran % (Auto) 0.4 Neut % (Auto) 76.4 H Lymph % (Auto) 13.1 L [place] % (Auto) 8.9 Eos % (Auto) 0.8 Baso % (Auto) 0.4 Lymph # (Auto) 0.9 L [place] # (Auto) 0.6 Eos # (Auto) 0.1 Baso # (Auto) 0.0 Abs Immat Gran (auto) 0.03 Absolute Neuts (auto) 5.5 Absolute Nucleated RBC 0.000 Nucleated RBC % (auto) 0.0 VBG pH 7.55 H VBG pCO2 51 VBG pO2 38 VBG HCO3 46 H VBG O2 Saturation 67.0 VBG Base Excess 20.7 Sodium 140 Potassium 3.9 Chloride 97 Carbon Dioxide 30 H Anion Gap 17 BUN 11 Creatinine 0.43 L Estim Creat Clear Calc 192.3 Estimated GFR > 60 Random Glucose 86 Calcium 8.0 L Phosphorus 3.6 Magnesium 1.7 Total Bilirubin 0.8 AST 26 ALT 8 Alkaline Phosphatase 42 Total Protein 4.9 L Albumin 2.9 L Imaging angiography reviewed: My impression: I reviewed the imaging with Dr Mayes and Dr Peraza Microbiology Microbiology Results: Microbiology 02/22/25 21:00 Blood - Venous Blood Culture - Preliminary No growth after 24 hours. 02/22/25 21:00 Blood - Venous Blood Culture - Preliminary No growth after 24 hours. Procedures Date of Service Date of Service: 02/24/25 Progress Note: A&P Assessment and plan (1) Upper GI bleed: Status: Acute Assessment and Plan: I reviewed the findings at IR with the patient and his I discussed extensively his clinical course and treatment (>30 Min) We will continue to provide iv ppi and supportive care. Hct will be monitored. We discussed that he will likely need rehab care following this critical illness. Time Spent With Patient Time: Total time managing care of this patient today ____ minutes. Quality Stroke Does the patient have a stroke diagnosis?: No VTE Prior VTE?: No VTE Risk Level:: Medical - moderate - high VTE Device Contraindication: N/A - Device Ordered VTE Drug Contraindication: Treatment Not Indicated
--- NOTE | 2025-02-24 13:35 | HO.WOUND ---
Wound Consult: Initial 69yr old?male admitted to [facility] on 02/20/25 - See progress notes and H&P for detailed history.? Wound consult placed for Intergluteal area.? Patient agreeable to assessment and photo documentation.? Intergluteal Fold at superior buttock Etiology: ??MASD (Moisture Associated Skin Damage) Measurements: 5cm x 4cm x 0cm Wound Bed: resurfacing red pink blanchable tissue along edge dry resurfacing areas noted - friction and moisture related Drainage / Odor: None noted Edges: ? Mirrored and with in gluteal fold Bee wound: [place] intact blanchable tissue ? No Induration, Fluctuance or Warmth noted Pain: denies Goals of Treatment: ? Continue barrier cream and preventative measure YUDI, Q2hr turns, nutrition consulted and following Recommendations: 1. Turn and Reposition every 2 hours and as needed for patient comfort.? Use pillows or wedges to support off loading positions. 2. Off Load all bony prominences with use of pillows and heel boots if needed.? Apply Preventative foams where needed. ? 3. Monitor for incontinence and moisture control, use barrier creams when needed for prevention and treatment. 4. Provide adequate and supplemental nutrition.? 5. Order low air loss mattress. 6. When applicable maintain blood glucose levels per Providers order. Intergluteal - Off Load Pressure with Q2 hr turns and use of pillows - Cleanse with PH balance spray or wipes, pat dry. ?Apply thin layer of barrier cream to affected area.? Apply twice daily and Reapply thin layer PRN after each episode of incontinence. Re-consult wound care Nurse for wound deterioration or wound changes.
--- NOTE | 2025-02-24 21:51 | PM.EVENT ---
Event Note Date of Service: 02/24/25 Event Note: Transition from icu to floor discussed with Dr. Johnson and I assumed care, no active bleed, hemodynamically stable, gi following, continue monitoring H/H Time Spent With Patient Time: Total time managing care of this patient today ____ minutes.
[2025-02-25] VITALS (13 sets, daily range): BP systolic 95–134; BP diastolic 54–83; PULSE 90–122; RESP 15–20; TEMP 36.1–37.3; O2SAT 94–99; BMI 35.5
[2025-02-25] MEDS: Lactated Ringers 1,000 ML 999 ML IV (00:30)
[2025-02-25 00:41] LABS: Hematocrit 21.3 % (42.0-52.0); Hemoglobin 7.6 g/dl (14.0-18.0)
--- NOTE | 2025-02-25 02:57 | PM.EVENT ---
Event Note Date of Service: 02/25/25 Event Note: Patient with 2 episodes of bright red blood per rectum overnight as per the nurse. Currently hemodynamically stable. Repeated H and H at 00:27: 7.6. Will order 1 unit PRBC and closely monitor. Time Spent With Patient Time: Total time managing care of this patient today ____ minutes.
[2025-02-25] MEDS: Morphine Sulfate 2 MG/ML CARTRIDGE 1 MG IVPUSH ×2 (03:18→08:26)
[2025-02-25] MEDS: Pantoprazole Sodium 80 MG in 0.9 % Sodium Chloride 80 ML 10 MG IV ×2 (03:18→14:45)
[2025-02-25 10:05] LABS: MANUAL DIFF FLAG NO
[2025-02-25 10:14] LABS: Basophils Percent Auto 0.9 % (0-2); Eosinophils Absolute Auto 0.1 X10*3/uL (0.0-0.4); Eosinophils Percent Auto 1.1 % (0-4); Hematocrit 23.3 % (42.0-52.0); Imm Gran Abs Auto 0.02 X10*3/uL (0.00-0.03); Imm Gran Pct Auto 0.5 % (0.0-0.4); Lymphocytes Absolute Auto 0.9 X10*3/uL (1.2-4.9); Lymphocytes Percent Auto 20.2 % (20-40); Mean Corpuscular HGB Conc 34.3 g/dl (31.0-36.0); Mean Corpuscular Hemoglobin 32.4 pg (27.0-33.0); Mean Corpuscular Volume 94.3 fL (80.0-98.0); Mean Platelet Volume 9.7 fL (9.4-12.4); Monocytes Absolute Auto 0.5 X10*3/uL (0.1-1.2); Neutrophils Absolute Auto 2.9 x10*3/uL (2.0-8.3); Neutrophils Percent Auto 66.3 % (45-73); Platelet Count 161 X10*3/uL (160-400); Red Blood Count 2.47 X10*6/uL (4.60-5.80); Red Cell Distribution Width 13.7 % (11.0-16.0); White Blood Count 4.4 X10*3/uL (4.8-10.8)
--- NOTE | 2025-02-25 10:18 | P.PNIM_ITS ---
Subjective Subjective Date of Service: 02/25/25 Interval History: f/u acute blood loss anemia, gib having dark bm.. appear old blood Physical Exam 2 Vital Signs: Vital Signs: Last Vital Signs Temp 97.4 F 02/25/25 08:59 Pulse 97 02/25/25 08:59 Resp 18 02/25/25 08:59 BP 96/62 02/25/25 08:59 Pulse Ox 96 02/25/25 07:06 O2 Del Method Nasal Cannula 02/25/25 07:06 O2 Flow Rate 3 02/25/25 07:06 BMI result Body Mass Index 35.5 Const: Other: General: AO X 3, no acute distress Resp: CTA bilateral CVS: S1,S2,RRR GI: +BS, NT, no distention Skin: No rash Neuro: motor grossly intact Psych: appropriate affect Objective Data Active Medications Pantoprazole Sodium 80 mg/ (Sodium Chloride) 100 mls @ 10 mls/hr IV .Q10H [facility] Last Admin: 02/25/25 03:18 Dose: 8 mg/hr, 10 mls/hr Documented By: LOU Lidocaine (Lidocaine 4 % Patch Adh..Patch) 2 patch TRANSDERMA DAILY [facility]; Protocol Last Admin: 02/25/25 08:30 Dose: Not Given Documented By: DAMASO Non-Admin Reason: Patient Refused Morphine Sulfate (Morphine Sulfate 2 Mg/Ml Cartridge) 1 mg IVPUSH Q3H PRN; Protocol PRN Reason: Pain, Severe (Pain Scale 7-10) Last Admin: 02/25/25 08:26 Dose: 1 mg Documented By: DAMASO Sodium Chloride (0.9 % Sodium Chloride Flush 3 Ml Syringe) 3 ml IVFLUSH QSHIFT [facility] Last Admin: 02/25/25 08:28 Dose: Not Given Documented By: DAMASO Non-Admin Reason: IV Running Labs 02/26/25 08:50 02/25/25 09:37 Labs: Laboratory Results - last 24 hr 02/25/25 02/25/25 04:10 09:37 MCV 94.3 MCH 32.4 MCHC 34.3 RDW 13.7 Plt Count 161 MPV 9.7 Immature Gran % (Auto) 0.5 H Neut % (Auto) 66.3 Lymph % (Auto) 20.2 [place] % (Auto) 11.0 Eos % (Auto) 1.1 Baso % (Auto) 0.9 Lymph # (Auto) 0.9 L [place] # (Auto) 0.5 Eos # (Auto) 0.1 Baso # (Auto) 0.0 Abs Immat Gran (auto) 0.02 Absolute Neuts (auto) 2.9 Absolute Nucleated RBC 0.000 Nucleated RBC % (auto) 0.0 Blood Type O Positive Antibody Screen NEGATIVE Crossmatch See Detail Microbiology Microbiology Results: Microbiology 02/22/25 21:00 Blood Culture - Preliminary Blood - Venous No growth after 48 hours. 02/22/25 21:00 Blood Culture - Preliminary Blood - Venous No growth after 48 hours. Assessment and Plan (1) Acute upper gastrointestinal bleeding: Status: Acute (2) Upper GI bleed: Status: Acute (3) Acute blood loss anemia: Status: Acute Plan 69-year-old gentleman with underlying history of hypertension, neuropathy, alcohol dependence, hepatic steatosis, opiate dependence admitted on 02/20/2025 after a syncopal event with large melanotic bowel. On ER evaluation patient hypotensive, though responded well to IV fluids. Initial hemoglobin of 10, transfused 4 units of packed red blood cells with appropriate response. Status post EGD on 02/2025 with demonstration of duodenal ulcer status post coagulation. Required embolization on 02/23/2025. Transfered out of ICU on 02/24/25, had another episode of bleeding overnight and transfused [id number] RBC 02/24, Upper GIB, acute blood loss anemia d/t duodnal ulcer s/p coagulation and embolization, active bleed transfused 1 unit overnight continue IV PPI monitor H/H closely GI and surgery following, may need surgery if persistent bleed advance diet HLD Lipitor Hypoxia ? related anemia, probably underlying hypoventilation continue O2 and wean as suzanne Mood disorder Sertraline dvt prophylasix device, d/t gib, anemia full code Quality Stroke Does the patient have a stroke diagnosis?: No VTE Prior VTE?: No VTE Risk Level:: Medical - moderate - high VTE Device Contraindication: N/A - Device Ordered VTE Drug Contraindication: Treatment Not Indicated
[2025-02-25 10:23] LABS: Alanine Aminotransferase 11 U/L (0-40); Albumin Level 2.9 g/dL (3.5-5.0); Alkaline Phosphatase 43 U/L (39-117); Anion Gap 11 (12-20); Aspartate Amino Transferase 33 U/L (5-37); Bilirubin Total 0.7 mg/dL (0.0-1.0); Blood Urea Nitrogen 7 mg/dL (9-16); Calcium 8.3 mg/dL (8.4-10.2); Carbon Dioxide 34 mmol/L (22-29); Chloride 98 mmol/L (96-108); Creatinine Clr Calc Pharmacy 178.7; Estimated Glomerular Filt Rate > 60; Glucose Random 136 mg/dL (60-115); Magnesium 1.6 mg/dL (1.6-2.6); Phosphorus 3.8 mg/dL (2.7-4.5); Potassium 3.5 mmol/L (3.3-5.1); Sodium 139 mmol/L (135-145); Total Protein 5.1 g/dL (6.5-8.0)
--- NOTE | 2025-02-25 10:38 | MHC.CM.PN ---
Per rounds, pt is not yet ready to DC. He is being treated for a duodnal ulcer, requiring blood transfusion. Referrals to [facility] have been updated. CM to follow for DC needs.
--- NOTE | 2025-02-25 14:01 | P.PNGI_ITS ---
Subjective Subjective Date of Service: 02/25/25 Interval History: no abdominal pain tolerating diet Critical Care Time (minutes): 0 Physical Exam 2 Vital Signs: Vital Signs: Last Vital Signs Temp 97 F 02/25/25 11:33 Pulse 90 02/25/25 11:33 Resp 15 02/25/25 11:33 BP 116/65 02/25/25 11:33 Pulse Ox 96 02/25/25 11:33 O2 Del Method Nasal Cannula 02/25/25 11:33 O2 Flow Rate 3 02/25/25 11:33 BMI result Body Mass Index 35.5 GI: Other: abdomen is soft and nontender Objective Data Labs 02/25/25 09:37 02/25/25 09:37 Labs: Laboratory Results - last 24 hr 02/25/25 02/25/25 02/25/25 00:27 04:10 09:37 WBC 4.4 L RBC 2.47 L Hgb 7.6 L 8.0 L Hct 21.3 L 23.3 L MCV 94.3 MCH 32.4 MCHC 34.3 RDW 13.7 Plt Count 161 MPV 9.7 Immature Gran % (Auto) 0.5 H Neut % (Auto) 66.3 Lymph % (Auto) 20.2 [place] % (Auto) 11.0 Eos % (Auto) 1.1 Baso % (Auto) 0.9 Lymph # (Auto) 0.9 L [place] # (Auto) 0.5 Eos # (Auto) 0.1 Baso # (Auto) 0.0 Abs Immat Gran (auto) 0.02 Absolute Neuts (auto) 2.9 Absolute Nucleated RBC 0.000 Nucleated RBC % (auto) 0.0 Sodium 139 Potassium 3.5 Chloride 98 Carbon Dioxide 34 H Anion Gap 11 L BUN 7 L Creatinine 0.46 L Estim Creat Clear Calc 178.7 Estimated GFR > 60 Random Glucose 136 H Calcium 8.3 L Phosphorus 3.8 Magnesium 1.6 Total Bilirubin 0.7 AST 33 ALT 11 Alkaline Phosphatase 43 Total Protein 5.1 L Albumin 2.9 L Blood Type O Positive Antibody Screen NEGATIVE Crossmatch See Detail Microbiology Microbiology Results: Microbiology 02/22/25 21:00 Blood - Venous Blood Culture - Preliminary No growth after 48 hours. 02/22/25 21:00 Blood - Venous Blood Culture - Preliminary No growth after 48 hours. Procedures Date of Service Date of Service: 02/25/25 Progress Note: A&P Assessment and plan (1) Hemorrhagic shock: Status: Acute Plan GI bleeding, appears stable 1U prbcs overnight s/p EGD and IR embolization continue iv pantoprazole can switch to po when Hct is stable x 24hrs advance diet as suzanne. Time Spent With Patient Time: Total time managing care of this patient today ____ minutes. Quality Stroke Does the patient have a stroke diagnosis?: No VTE Prior VTE?: No VTE Risk Level:: Medical - moderate - high VTE Device Contraindication: N/A - Device Ordered VTE Drug Contraindication: Treatment Not Indicated
[2025-02-25] MEDS: Sertraline HCL 25 MG TABLET PO (14:44)
[2025-02-25] MEDS: 0.9 % Sodium Chloride Flush 3 ML SYRINGE IVFLUSH (20:11)
[2025-02-26] MEDS: Pantoprazole Sodium 80 MG in 0.9 % Sodium Chloride 80 ML 10 MG IV ×3 (00:33→17:21)
[2025-02-26 00:45] VITALS: BP 133/75
--- NOTE | 2025-02-26 01:30 | PC.NURSE ---
Pt with bladder scan of 675mls. Patient adamant about refusing straight cath. States he can pee it all out with time. Has been voiding around 200-300mls every few hours. MD Tubbs notified and aware.
[2025-02-26 04:00] VITALS: BP 116/73; PULSE 96; RESP 18; TEMP 36.6; O2SAT 98
[2025-02-26 06:00] VITALS: BMI 35.0
[2025-02-26 07:39] VITALS: BP 133/83; PULSE 102; RESP 18; TEMP 36.7; O2SAT 97
[2025-02-26] MEDS: Thiamine HCL 100 MG TABLET PO (08:52)
[2025-02-26] MEDS: Atorvastatin Calcium 40 MG TABLET PO (08:52)
[2025-02-26] MEDS: Sertraline HCL 25 MG TABLET PO (08:52)
[2025-02-26] MEDS: Folic Acid 1 MG TABLET PO (08:52)
[2025-02-26] MEDS: 0.9 % Sodium Chloride Flush 3 ML SYRINGE IVFLUSH ×2 (09:00→17:19)
[2025-02-26 09:25] LABS: Hematocrit 24.9 % (42.0-52.0); Hemoglobin 8.8 g/dl (14.0-18.0); Mean Corpuscular HGB Conc 35.3 g/dl (31.0-36.0); Mean Corpuscular Hemoglobin 32.8 pg (27.0-33.0); Mean Corpuscular Volume 92.9 fL (80.0-98.0); Mean Platelet Volume 9.4 fL (9.4-12.4); Platelet Count 188 X10*3/uL (160-400); Red Blood Count 2.68 X10*6/uL (4.60-5.80); Red Cell Distribution Width 13.9 % (11.0-16.0); White Blood Count 3.8 X10*3/uL (4.8-10.8)
[2025-02-26] MEDS: Morphine Sulfate 2 MG/ML CARTRIDGE 1 MG IVPUSH ×3 (11:10→23:47)
[2025-02-26 11:12] VITALS: BP 110/69; PULSE 96; RESP 16; TEMP 36.6; O2SAT 99
--- NOTE | 2025-02-26 11:46 | HO.PM.IMPN ---
Subjective Subjective Date of Service: 02/26/25 Interval History: H/H is better, had dark brown bowel movement his morning, hemodynamically stable. He is otherwise feeling much better Physical Exam Vital Signs: Vital Signs: Last Vital Signs Temp 98 F 02/26/25 11:12 Pulse 96 02/26/25 11:12 Resp 16 02/26/25 11:12 BP 110/69 02/26/25 11:12 Pulse Ox 99 02/26/25 11:12 O2 Del Method Nasal Cannula 02/26/25 11:12 O2 Flow Rate 2 02/26/25 11:12 BMI result Body Mass Index 35.0 Objective Data Active Medications Atorvastatin Calcium (Atorvastatin Calcium 40 Mg Tablet) 40 mg PO DAILY [facility] Last Admin: 02/26/25 08:52 Dose: 40 mg Documented By: DAMASO Folic Acid (Folic Acid 1 Mg Tablet) 1 mg PO DAILY [facility] Last Admin: 02/26/25 08:52 Dose: 1 mg Documented By: DAMASO Pantoprazole Sodium 80 mg/ (Sodium Chloride) 100 mls @ 10 mls/hr IV .Q10H [facility] Last Admin: 02/26/25 08:53 Dose: 8 mg/hr, 10 mls/hr Documented By: DAMASO Lidocaine (Lidocaine 4 % Patch Adh..Patch) 2 patch TRANSDERMA DAILY [facility]; Protocol Last Admin: 02/26/25 11:09 Dose: Not Given Documented By: DAMASO Non-Admin Reason: Patient Refused Morphine Sulfate (Morphine Sulfate 2 Mg/Ml Cartridge) 1 mg IVPUSH Q3H PRN; Protocol PRN Reason: Pain, Severe (Pain Scale 7-10) Last Admin: 02/26/25 11:10 Dose: 1 mg Documented By: DAMASO Sertraline HCl (Sertraline Hcl 25 Mg Tablet) 25 mg PO DAILY [facility] Last Admin: 02/26/25 08:52 Dose: 25 mg Documented By: DAMASO Sodium Chloride (0.9 % Sodium Chloride Flush 3 Ml Syringe) 3 ml IVFLUSH QSHIFT [facility] Last Admin: 02/26/25 09:00 Dose: 3 ml Documented By: DAMASO Thiamine HCl (Thiamine Hcl 100 Mg Tablet) 100 mg PO DAILY [facility] Last Admin: 02/26/25 08:52 Dose: 100 mg Documented By: DAMASO Labs 02/26/25 08:50 02/25/25 09:37 Labs: Laboratory Results - last 24 hr 02/26/25 08:50 MCV 92.9 MCH 32.8 MCHC 35.3 RDW 13.9 Plt Count 188 MPV 9.4 Absolute Nucleated RBC 0.000 Nucleated RBC % (auto) 0.0 Assessment and Plan (1) Acute upper gastrointestinal bleeding: Status: Acute (2) Upper GI bleed: Status: Acute (3) Acute blood loss anemia: Status: Acute Plan 69-year-old gentleman with underlying history of hypertension, neuropathy, alcohol dependence, hepatic steatosis, opiate dependence admitted on 02/20/2025 after a syncopal event with large melanotic bowel. On ER evaluation patient hypotensive, though responded well to IV fluids. Initial hemoglobin of 10, transfused 4 units of packed red blood cells with appropriate response. Status post EGD on 02/2025 with demonstration of duodenal ulcer status post coagulation. Required embolization on 02/23/2025. Transfered out of ICU on 02/24/25, had another episode of bleeding overnight and transfused [id number] RBC 02/24, Upper GIB, acute blood loss anemia d/t duodnal ulcer s/p coagulation and embolization, active bleed H/H slightly better than yesterday continue IV PPI monitor H/H closely GI and surgery following, may need surgery if persistent bleed advance diet HLD Lipitor Hypoxia ? related anemia, probably underlying hypoventilation continue O2 and wean as suzanne Mood disorder Sertraline dvt prophylasix device, d/t gib, anemia full code Quality Stroke Does the patient have a stroke diagnosis?: No VTE Prior VTE?: No VTE Risk Level:: Medical - moderate - high VTE Device Contraindication: N/A - Device Ordered VTE Drug Contraindication: Treatment Not Indicated
[2025-02-26 15:36] VITALS: BP 121/78; PULSE 98; RESP 20; TEMP 36.6; O2SAT 98
[2025-02-26 19:34] VITALS: BP 111/62; PULSE 92; RESP 18; TEMP 36; O2SAT 99
[2025-02-27] VITALS (8 sets, daily range): BP systolic 125–147; BP diastolic 73–91; PULSE 86–108; RESP 16–20; TEMP 36–37.1; O2SAT 96–99
[2025-02-27] MEDS: Morphine Sulfate 2 MG/ML CARTRIDGE 1 MG IVPUSH ×5 (02:48→20:46)
[2025-02-27] MEDS: Pantoprazole Sodium 80 MG in 0.9 % Sodium Chloride 80 ML 10 MG IV (04:57)
[2025-02-27] MEDS: Atorvastatin Calcium 40 MG TABLET PO (08:24)
[2025-02-27] MEDS: Sertraline HCL 25 MG TABLET PO (08:24)
[2025-02-27] MEDS: Thiamine HCL 100 MG TABLET PO (08:24)
[2025-02-27] MEDS: Folic Acid 1 MG TABLET PO (08:24)
[2025-02-27] MEDS: 0.9 % Sodium Chloride Flush 3 ML SYRINGE IVFLUSH ×2 (08:25→20:46)
[2025-02-27 09:16] LABS: Hematocrit 26.7 % (42.0-52.0); Hemoglobin 9.3 g/dl (14.0-18.0); Mean Corpuscular HGB Conc 34.8 g/dl (31.0-36.0); Mean Corpuscular Hemoglobin 32.9 pg (27.0-33.0); Mean Corpuscular Volume 94.3 fL (80.0-98.0); Mean Platelet Volume 9.1 fL (9.4-12.4); Platelet Count 210 X10*3/uL (160-400); Red Blood Count 2.83 X10*6/uL (4.60-5.80); Red Cell Distribution Width 13.7 % (11.0-16.0); White Blood Count 4.2 X10*3/uL (4.8-10.8)
--- NOTE | 2025-02-27 11:25 | P.PNIM_ITS ---
Subjective Subjective Date of Service: 02/27/25 Interval History: No bleeding overnight, tolerating regualr diet, H/H is stable, BP normal, still on O2 Physical Exam 2 Vital Signs: Vital Signs: Last Vital Signs Temp 97.3 F 02/27/25 07:25 Pulse 100 02/27/25 07:25 Resp 18 02/27/25 07:25 BP 125/83 02/27/25 07:25 Pulse Ox 96 02/27/25 07:25 O2 Del Method Nasal Cannula 02/27/25 07:25 O2 Flow Rate 2 02/27/25 07:25 BMI result Body Mass Index 35.0 Const: Other: General: AO X 3, no acute distress Resp: CTA bilateral CVS: S1,S2,RRR GI: +BS, NT, no distention Skin: No rash Neuro: motor grossly intact Psych: appropriate affect Objective Data Active Medications Atorvastatin Calcium (Atorvastatin Calcium 40 Mg Tablet) 40 mg PO DAILY [facility] Last Admin: 02/27/25 08:24 Dose: 40 mg Documented By: MK Folic Acid (Folic Acid 1 Mg Tablet) 1 mg PO DAILY [facility] Last Admin: 02/27/25 08:24 Dose: 1 mg Documented By: MK Pantoprazole Sodium 80 mg/ (Sodium Chloride) 100 mls @ 10 mls/hr IV .Q10H [facility] Last Admin: 02/27/25 04:57 Dose: 8 mg/hr, 10 mls/hr Documented By: RENÉE Lidocaine (Lidocaine 4 % Patch Adh..Patch) 2 patch TRANSDERMA DAILY [facility]; Protocol Last Admin: 02/27/25 08:31 Dose: Not Given Documented By: MK Non-Admin Reason: Patient Refused Morphine Sulfate (Morphine Sulfate 2 Mg/Ml Cartridge) 1 mg IVPUSH Q3H PRN; Protocol PRN Reason: Pain, Severe (Pain Scale 7-10) Last Admin: 02/27/25 09:40 Dose: 1 mg Documented By: MK Sertraline HCl (Sertraline Hcl 25 Mg Tablet) 25 mg PO DAILY [facility] Last Admin: 02/27/25 08:24 Dose: 25 mg Documented By: MK Sodium Chloride (0.9 % Sodium Chloride Flush 3 Ml Syringe) 3 ml IVFLUSH QSHIFT [facility] Last Admin: 02/27/25 08:25 Dose: 3 ml Documented By: MK Thiamine HCl (Thiamine Hcl 100 Mg Tablet) 100 mg PO DAILY [facility] Last Admin: 02/27/25 08:24 Dose: 100 mg Documented By: MK Labs 02/27/25 09:00 02/25/25 09:37 Labs: Laboratory Results - last 24 hr 02/27/25 09:00 MCV 94.3 MCH 32.9 MCHC 34.8 RDW 13.7 Plt Count 210 MPV 9.1 L Absolute Nucleated RBC 0.000 Nucleated RBC % (auto) 0.0 Hold Purple Top SEE NOTE Assessment and Plan (1) Acute upper gastrointestinal bleeding: Status: Acute (2) Upper GI bleed: Status: Acute (3) Acute blood loss anemia: Status: Acute Plan 69-year-old gentleman with underlying history of hypertension, neuropathy, alcohol dependence, hepatic steatosis, opiate dependence admitted on 02/20/2025 after a syncopal event with large melanotic bowel. On ER evaluation patient hypotensive, though responded well to IV fluids. Initial hemoglobin of 10, transfused 4 units of packed red blood cells with appropriate response. Status post EGD on 02/2025 with demonstration of duodenal ulcer status post coagulation. Required embolization on 02/23/2025. Transfered out of ICU on 02/24/25, had another episode of bleeding overnight and transfused [id number] RBC 02/24, Upper GIB, acute blood loss anemia d/t duodnal ulcer s/p coagulation and embolization, no active bleed H/H slightly better than yesterday chanaging protonix drip to Prilosec 40 bid today continue monitoring H/H GI and surgery following regular diet HLD Lipitor Hypoxia ? related anemia, probably underlying hypoventilation continue O2 and wean as suzanne, home O2 eval and not able to wean Mood disorder Sertraline dvt prophylasix device, d/t gib, anemia full code Out of bed, ambulate Quality Stroke Does the patient have a stroke diagnosis?: No VTE Prior VTE?: No VTE Risk Level:: Medical - moderate - high VTE Device Contraindication: N/A - Device Ordered VTE Drug Contraindication: Treatment Not Indicated
[2025-02-27] MEDS: Omeprazole 40 MG CAPSULE.DR PO (15:12)
[2025-02-27] MEDS: Morphine Sulfate 2 MG/ML CARTRIDGE IVPUSH (23:41)
[2025-02-28 03:33] VITALS: BP 117/84; PULSE 98; RESP 16; TEMP 36.7; O2SAT 98
[2025-02-28] MEDS: Omeprazole 40 MG CAPSULE.DR PO ×2 (05:33→17:07)
[2025-02-28] MEDS: Morphine Sulfate 2 MG/ML CARTRIDGE IVPUSH ×3 (05:34→20:27)
[2025-02-28 06:00] VITALS: BMI 35.7
[2025-02-28 07:33] VITALS: BP 139/81; PULSE 103; RESP 17; TEMP 36.3; O2SAT 98
[2025-02-28 07:41] LABS: Hematocrit 26.5 % (42.0-52.0); Hemoglobin 9.1 g/dl (14.0-18.0); Mean Corpuscular HGB Conc 34.3 g/dl (31.0-36.0); Mean Corpuscular Hemoglobin 32.9 pg (27.0-33.0); Mean Corpuscular Volume 95.7 fL (80.0-98.0); Mean Platelet Volume 9.4 fL (9.4-12.4); Platelet Count 199 X10*3/uL (160-400); Red Blood Count 2.77 X10*6/uL (4.60-5.80); Red Cell Distribution Width 13.5 % (11.0-16.0)
[2025-02-28] MEDS: Folic Acid 1 MG TABLET PO (09:30)
[2025-02-28] MEDS: Thiamine HCL 100 MG TABLET PO (09:30)
[2025-02-28] MEDS: Atorvastatin Calcium 40 MG TABLET PO (09:30)
[2025-02-28] MEDS: Sertraline HCL 25 MG TABLET PO (09:30)
[2025-02-28 09:31] VITALS: RESP 18
[2025-02-28] MEDS: 0.9 % Sodium Chloride Flush 3 ML SYRINGE IVFLUSH ×2 (09:31→17:08)
[2025-02-28 10:08] VITALS: BP 131/76; PULSE 94; RESP 20; TEMP 37.2
--- NOTE | 2025-02-28 12:22 | HO.PM.IMPN ---
Subjective Subjective Date of Service: 02/28/25 Interval History: No bleeding overnight, tolerating regualr diet, H/H is stable, BP normal, still on O2 Physical Exam Vital Signs: Vital Signs: Last Vital Signs Temp 97.3 F 02/28/25 07:33 Pulse 103 H 02/28/25 07:33 Resp 18 02/28/25 09:31 BP 139/81 02/28/25 07:33 Pulse Ox 98 02/28/25 07:33 O2 Del Method Nasal Cannula 02/28/25 07:33 O2 Flow Rate 2 02/28/25 07:33 BMI result Body Mass Index 35.7 Const: Other: General: AO X 3, no acute distress Resp: CTA bilateral CVS: S1,S2,RRR GI: +BS, NT, no distention Skin: No rash Neuro: motor grossly intact Psych: appropriate affect Objective Data Active Medications Atorvastatin Calcium (Atorvastatin Calcium 40 Mg Tablet) 40 mg PO DAILY [facility] Last Admin: 02/28/25 09:30 Dose: 40 mg Documented By: RENÉE Folic Acid (Folic Acid 1 Mg Tablet) 1 mg PO DAILY [facility] Last Admin: 02/28/25 09:30 Dose: 1 mg Documented By: RENÉE Lidocaine (Lidocaine 4 % Patch Adh..Patch) 2 patch TRANSDERMA DAILY [facility]; Protocol Last Admin: 02/28/25 09:30 Dose: Not Given Documented By: RENÉE Non-Admin Reason: Patient Refused Morphine Sulfate (Morphine Sulfate 2 Mg/Ml Cartridge) 2 mg IVPUSH Q3H PRN; Protocol PRN Reason: Pain, Severe (Pain Scale 7-10) Last Admin: 02/28/25 09:31 Dose: 2 mg Documented By: RENÉE Omeprazole (Omeprazole 40 Mg Capsule.Dr) 40 mg PO BID@0630,1630 [facility] Last Admin: 02/28/25 05:33 Dose: 40 mg Documented By: TUAN Sertraline HCl (Sertraline Hcl 25 Mg Tablet) 25 mg PO DAILY [facility] Last Admin: 02/28/25 09:30 Dose: 25 mg Documented By: RENÉE Sodium Chloride (0.9 % Sodium Chloride Flush 3 Ml Syringe) 3 ml IVFLUSH QSHIFT [facility] Last Admin: 02/28/25 09:31 Dose: 3 ml Documented By: RENÉE Thiamine HCl (Thiamine Hcl 100 Mg Tablet) 100 mg PO DAILY [facility] Last Admin: 02/28/25 09:30 Dose: 100 mg Documented By: RENÉE Labs 02/28/25 06:39 02/25/25 09:37 Labs: Laboratory Results - last 24 hr 02/28/25 06:39 MCV 95.7 MCH 32.9 MCHC 34.3 RDW 13.5 Plt Count 199 MPV 9.4 Absolute Nucleated RBC 0.000 Nucleated RBC % (auto) 0.0 Microbiology Microbiology Results: Microbiology 02/22/25 21:00 Blood Culture - Final Blood - Venous No growth after 5 days. 02/22/25 21:00 Blood Culture - Final Blood - Venous No growth after 5 days. Assessment and Plan (1) Acute upper gastrointestinal bleeding: Status: Acute (2) Upper GI bleed: Status: Acute (3) Acute blood loss anemia: Status: Acute Plan 69-year-old gentleman with underlying history of hypertension, neuropathy, alcohol dependence, hepatic steatosis, opiate dependence admitted on 02/20/2025 after a syncopal event with large melanotic bowel. On ER evaluation patient hypotensive, though responded well to IV fluids. Initial hemoglobin of 10, transfused 4 units of packed red blood cells with appropriate response. Status post EGD on 02/2025 with demonstration of duodenal ulcer status post coagulation. Required embolization on 02/23/2025. Transfered out of ICU on 02/24/25, had another episode of bleeding overnight and transfused [id number] RBC 02/24, Upper GIB, acute blood loss anemia d/t duodnal ulcer s/p coagulation and embolization, no active bleed H/H stable last 2 -3 days chanaged protonix drip to Prilosec 40 bid today, on 02/27 continue monitoring H/H GI and surgery following regular diet HLD Lipitor Hypoxia ? related anemia, probably underlying hypoventilation continue O2 and wean as suzanne, home O2 eval and not able to wean Mood disorder Sertraline PT eval still pending dvt prophylasix device, d/t gib, anemia full code Out of bed, ambulate Quality Stroke Does the patient have a stroke diagnosis?: No VTE Prior VTE?: No VTE Risk Level:: Medical - moderate - high VTE Device Contraindication: N/A - Device Ordered VTE Drug Contraindication: Treatment Not Indicated
[2025-02-28 15:07] VITALS: BP 131/76; PULSE 94; RESP 20; TEMP 37.2; O2SAT 98
[2025-02-28 20:00] VITALS: BP 122/92; PULSE 99; RESP 18; TEMP 36.6; O2SAT 96
--- NOTE | 2025-02-28 23:54 | PC.NURSE ---
Pulp Screen Operator assumed care of this patient at 23:30.
[2025-03-01] MEDS: 0.9 % Sodium Chloride Flush 3 ML SYRINGE IVFLUSH ×2 (01:57→08:29)
[2025-03-01 02:03] VITALS: RESP 18
[2025-03-01] MEDS: Morphine Sulfate 2 MG/ML CARTRIDGE IVPUSH ×3 (02:03→14:29)
[2025-03-01 03:21] VITALS: BP 134/88; PULSE 94; RESP 18; TEMP 36.8; O2SAT 95
[2025-03-01 05:36] VITALS: BMI 35.9
[2025-03-01] MEDS: Omeprazole 40 MG CAPSULE.DR PO ×2 (05:36→17:37)
[2025-03-01 07:45] VITALS: BP 145/73; PULSE 100; RESP 16; TEMP 36.3; O2SAT 96
[2025-03-01 07:50] LABS: Hemoglobin 9.8 g/dl (14.0-18.0); Mean Corpuscular HGB Conc 33.8 g/dl (31.0-36.0); Mean Corpuscular Hemoglobin 32.5 pg (27.0-33.0); Mean Platelet Volume 9.5 fL (9.4-12.4); Platelet Count 222 X10*3/uL (160-400); Red Blood Count 3.02 X10*6/uL (4.60-5.80); Red Cell Distribution Width 13.8 % (11.0-16.0); White Blood Count 5.9 X10*3/uL (4.8-10.8)
[2025-03-01] MEDS: Folic Acid 1 MG TABLET PO (08:27)
[2025-03-01] MEDS: Thiamine HCL 100 MG TABLET PO (08:27)
[2025-03-01] MEDS: Sertraline HCL 25 MG TABLET PO (08:27)
[2025-03-01] MEDS: Atorvastatin Calcium 40 MG TABLET PO (08:27)
--- NOTE | 2025-03-01 12:04 | MHC.RECOVRN ---
Met with pt in to follow up and provide support.? Pt lying in bed resting but easily awakens to voice. Pt oriented. Pt reports feeling tired. Pt stated that he will be looking over the information left with him yesterday with his and declines any further tx/assistance at this time.? Pt denies other concerns at this time.? T/w available as needed.
--- NOTE | 2025-03-01 15:23 | MHC.CM.PN ---
Pt was accepted at [facility], Second IMM given 03/01/25.
[2025-03-01 15:41] VITALS: BP 106/72; PULSE 105; RESP 16; TEMP 36.1; O2SAT 94
--- NOTE | 2025-03-01 16:14 | MHC.CM.PN ---
Pt has been medically cleared, he will go to [facility] today via BLS.
--- NOTE | 2025-03-01 16:30 | PM.DS ---
DS: Providers Provider Date of Service: 03/01/25 Date of admission: 02/20/25 22:47 Date of discharge: 03/01/25 Primary care physician: Lilly Cotton PA-C Consults: 02/20/25 22:47 Consult to Gastroenterology Stat Consulting Provider: Douglas Byers Reason for consultation: GI bleed Has provider been notified: Yes 02/21/25 00:23 Consult to Wound Care Routine Reason for consultation: redness intergluteal cleft, present on admit 02/21/25 01:02 Addiction Medicine Provider Stat Consulting Provider: Addiction Covering Reason for consultation: chronic alcoholisn Has provider been notified: No 02/22/25 13:23 Consult to General Surgery Routine Consulting Provider: [facility] General Surgeons Reason for consultation: high risk duodenal bulb ulcer on EGD Has provider been notified: No Attending physician on discharge: Asif Ramsay Discharging clinician: Asif Ramsay DS: Diagnosis Discharge Diagnosis (1) Acute upper gastrointestinal bleeding: Status: Acute (2) Upper GI bleed: Status: Acute (3) Acute blood loss anemia: Status: Acute DS: Summary Hospital Course Hospital Course: HPI:69-year-old male with a history of hypertension, hyperlipidemia, neuropathy, alcohol use disorder, hepatic steatosis, opiate use disorder, chronic pain, DJD lumbar spine, depression who was brought in by ambulance after near syncopal event while on the toilet. Paramedics reported a large, tarry stool. The patient had been having dark stools for 3 days. He has been taking Tums for epigastric pain with no relief. The patient drinks about a dozen alcoholic seltzers per day and takes ibuprofen 800 mg twice a day for chronic pain.? The patient states his last drink was at about 16:00 today. On arrival to the emergency room blood pressure was 73/45, heart rate 105, temp 97.7? F, O2 sat 93% on room air. Laboratory data significant for RBC 2.89, hemoglobin 10.3, hematocrit 27.8, PT 13.4, INR 1.2, PTT 24.9, sodium 122, potassium 3.3, chloride 83, BUN 35, glucose 132, magnesium 1.4, total bilirubin 1.1, AST 51, total protein 5.9, albumin 3.4.? UA negative for UTI.? Occult blood positive.? Ethyl alcohol less than 10. ED course: While in the emergency room the patient received 4 units red blood cells, 2 FFP, pantoprazole 80 mg, Mag sulfate 2 g. Platelet transfusion pending receipt from outside facility.? Hospital course: 69-year-old gentleman with underlying history of hypertension, neuropathy, alcohol dependence, hepatic steatosis, opiate dependence admitted on 02/20/2025 after a syncopal event with large melanotic bowel. On ER evaluation patient hypotensive, though responded well to IV fluids. Initial hemoglobin of 10, transfused 4 units of packed red blood cells with appropriate response. Status post EGD on 02/2025 with demonstration of duodenal ulcer status post coagulation. Required embolization on 02/23/2025. Transfered out of ICU on 02/24/25, had another episode of bleeding overnight and transfused [id number] RBC 02/24: Patient was admitted for upper GI bleed,started on ppi and seen by GI ,seen by Gi and surgery:acute blood loss anemia d/t duodnal ulcer s/p coagulation and embolization, no active bleed. No active bleeding afterwards, H&H stable 9.06/03 moniter cbc closely . In addition patient had hypoxia which was thought to be related to anemia and underlying hypoventilation: Improved with the PRBC , currently off oxygen. Continue incentive spirometry. Patient seen by PT and recommended rehab. plan: Monitor CBC Continue PPI b.i.d. follow up with Gi outpatient. Above management discussed with the patient and his in detail length-they both understand and in agreement with the above plan, time spent 40 minute, all question answered. Time Attestation Total time managing care of this patient today: 40 mintues. Discharge Coordination Time (in mins): 40 min Quality: Safe Use of Opioids Does Pt have an Active Cancer Diagnosis on the Problem List?: No Quality: Stroke Does the patient have a stroke diagnosis?: No Physical Exam Vital Signs: Vital Signs: Last Vital Signs Temp 96.9 F 03/01/25 15:41 Pulse 105 H 03/01/25 15:41 Resp 16 03/01/25 15:41 BP 106/72 03/01/25 15:41 Pulse Ox 94 03/01/25 15:41 O2 Del Method Room Air 03/01/25 15:41 O2 Flow Rate 2 03/01/25 03:21 BMI result Body Mass Index 35.9 General: AO X 3, no acute distress Resp: CTA bilateral CVS: S1,S2,RRR GI: +BS, NT, no distention Skin: No rash Neuro: motor grossly intact Psych: appropriate affect DS: Data Data Completed and Pending Completed studies during hospitalization [Text1]: Pending at discharge 02/22/25 13:03 Surgical [PTH] Routine Labs on day of discharge: Laboratory Results - last 24 hr 03/01/25 06:54 WBC 5.9 RBC 3.02 L Hgb 9.8 L Hct 29.0 L MCV 96.0 MCH 32.5 MCHC 33.8 RDW 13.8 Plt Count 222 MPV 9.5 Absolute Nucleated RBC 0.000 Nucleated RBC % (auto) 0.0 Imaging Chest x-ray: Radiologist's impression: ITS Impressions Abdomen/Pelvis CT 02/22/25 14:20 IMPRESSION: 1. Limited examination due to multiple technical factors as described above. No definite contrast extravasation is seen to suggest active GI bleeding. 2. Haziness of the periduodenal fat which could be secondary to ulcer disease. Correlation with upper endoscopy is suggested. 3. Marked irregular wall thickening of the urinary bladder which could indicate infection or neoplasm. Clinical correlation is recommended. Embolization 02/23/25 14:38 Impression: Angiogram with attention to duodenum does not demonstrate any active extravasation or arterial abnormality. Given clinical concern of continued bleeding, we prophylactically embolized the gastroduodenal artery and proximal right gastroepiploic artery. Plan: Continued ICU monitoring. Monitor right groin access site for hematoma Discharge Plan Discharge Anticipated Discharge Date/Time: 03/01/25 15:56 Patient Disposition: Xfer SNF Discharge Diagnosis: GIB Referrals: [facility] [Outside] - 1 Week Lilly Cotton PA-C [Primary Care Provider] - 1 Week Discharge Medications: New omeprazole 40 mg Capsule,Delayed Release(Dr/Ec) 40 mg PO BID@0630,1630 Qty: 1 0RF Continued thiamine HCl (vitamin B1) 100 mg capsule 100 mg PO DAILY Qty: 90 1RF magnesium oxide 400 mg (241.3 mg magnesium) tablet 400 mg PO DAILY Qty: 90 1RF sertraline 25 mg tablet 25 mg PO DAILY amlodipine-benazepril 10-40 mg capsule 1 cap PO DAILY folic acid 800 mcg tablet 0.8 mg PO DAILY atorvastatin 40 mg tablet 40 mg PO DAILY cholecalciferol (vitamin D3) 50 mcg (2,000 unit) tablet,disintegrating 50 mcg PO DAILY Discontinued ibuprofen 800 mg tablet 800 mg PO Q8H Qty: 30 3RF Discharge Orders: Discharge Order (Routine); Ordered 03/01/25 Ordered By: Asif Ramsay Diet: Advance to usual diet Activity on Discharge: As tolerated Stand Alone Forms: Patient Portal Discharge page Print Language: [place] Care Plan Goals: 69-year-old gentleman with underlying history of hypertension, neuropathy, alcohol dependence, hepatic steatosis, opiate dependence admitted on 02/20/2025 after a syncopal event with large melanotic bowel. On ER evaluation patient hypotensive, though responded well to IV fluids. Initial hemoglobin of 10, transfused 4 units of packed red blood cells with appropriate response. Status post EGD on 02/2025 with demonstration of duodenal ulcer status post coagulation. Required embolization on 02/23/2025. Transfered out of ICU on 02/24/25, had another episode of bleeding overnight and transfused [id number] RBC 02/24: Patient was admitted for upper GI bleed,started on ppi and seen by GI ,seen by Gi and surgery:acute blood loss anemia d/t duodnal ulcer s/p coagulation and embolization, no active bleed. No active bleeding afterwards, H&H stable 9.06/03 moniter cbc closely . In addition patient had hypoxia which was thought to be related to anemia and underlying hypoventilation: Improved with the PRBC , currently off oxygen. Continue incentive spirometry. Patient seen by PT and recommended rehab. Health Concerns: Monitor CBC Continue PPI b.i.d. Plan of Treatment: As above. Assessment: As above.
== END 2025-03-01 19:10 | disposition skilled nursing facility (03) | DRG 356 ==
LOC: HO.ED 22:43 → HO.EDOVER 22:54 → HO.ICU 22:58 → HO.IMC 02-24 14:28
PROVIDERS: Internal Medicine; Internal Medicine Gastroenterology; Internal Medicine Pulmonary Disease; Physician Assistant Medical; Student in an Organized Health Care Education/Training Program; Admitting Provider Nurse Practitioner Family; Emergency Provider Emergency Medicine Emergency Medical Services; PCP Physician Assistant Medical; Visit Provider Internal Medicine
PROC: 0DB78ZX Excision of Stomach, Pylorus, Via Natural or Artificial Opening Endoscopic, Diagnostic (ICD-10-PCS; principal; 2025-02-22 11:20)
PROC: 04L33DZ Occlusion of Hepatic Artery with Intraluminal Device, Percutaneous Approach (ICD-10-PCS; principal; 2025-02-23 12:00)
DX: K26.4 Chronic or unspecified duodenal ulcer with hemorrhage (principal); A41.9 Sepsis, unspecified organism; R57.8 Other shock; R65.21 Severe sepsis with septic shock; D62 Acute posthemorrhagic anemia; F11.20 Opioid dependence, uncomplicated; J98.11 Atelectasis; K76.0 Fatty (change of) liver, not elsewhere classified; E78.5 Hyperlipidemia, unspecified; I10 Essential (primary) hypertension; F39 Unspecified mood [affective] disorder; G62.9 Polyneuropathy, unspecified; G89.29 Other chronic pain; I95.9 Hypotension, unspecified; F10.20 Alcohol dependence, uncomplicated; K22.2 Esophageal obstruction; K44.9 Diaphragmatic hernia without obstruction or gangrene; Z20.822 Contact with and (suspected) exposure to COVID-19; Z87.891 Personal history of nicotine dependence; Z79.899 Other long term (current) drug therapy
CPT/HCPCS: 0241U; 36415; 37244; 71045; 74018; 74178; 80048; 80053; 80307; 81003; 82040; 82272; 82803; 83605; 83735; 83880; 84100; 84484; 85014; 85018; 85025; 85027; 85610; 85730; 86850; 86900; 86901; 86920; 86923; 87040; 88305; 88342; 93005; 97116; 97162; 97166; 97530; 99152; 99153; 99285; C1760; C1769; C1770; C1887; C1889; C1894; J0171; J1644; J2003; J2250; J2270; J2371; J2405; J2470; J2543; J2704; J3010; J3475; J3480; J7120; P9016; P9017; P9047; P9073; Q9967; S9485

== ENCOUNTER → 2025-02-20 19:34 | Outpatient (BNV) | payer MEDICARE, SELFPAY | PROVIDERS: Admitting Provider Nurse Practitioner Family; Emergency Provider Emergency Medicine Emergency Medical Services; PCP Physician Assistant Medical; Visit Provider Internal Medicine Cardiovascular Disease | DX: I48.91 Unspecified atrial fibrillation (principal) | CPT/HCPCS: 93010 ==

== ENCOUNTER 2025-02-20 22:47 | Outpatient (BNV) | payer MEDICARE, SELFPAY | END 2025-02-22 14:20 | PROVIDERS: Admitting Provider Nurse Practitioner Family; Emergency Provider Emergency Medicine Emergency Medical Services; PCP Physician Assistant Medical; Visit Provider Radiology Diagnostic Radiology | DX: K92.2 Gastrointestinal hemorrhage, unspecified (principal); I95.9 Hypotension, unspecified; R50.9 Fever, unspecified; Z48.815 Encounter for surgical aftercare following surgery on the digestive system | CPT/HCPCS: 74178 ==

== ENCOUNTER 2025-02-20 22:47 | Outpatient (BNV) | payer MEDICARE, SELFPAY | END 2025-02-23 14:38 | PROVIDERS: Admitting Provider Nurse Practitioner Family; Emergency Provider Emergency Medicine Emergency Medical Services; PCP Physician Assistant Medical; Visit Provider Student in an Organized Health Care Education/Training Program | DX: K91.840 Postprocedural hemorrhage of a digestive system organ or structure following a digestive system procedure (principal); Z99.11 Dependence on respirator [ventilator] status | CPT/HCPCS: 36247; 36248; 37244; 75726; 75774; 76937; 99152 ==

== ENCOUNTER → 2025-02-20 22:47 | Outpatient (BNV) | payer MEDICARE, SELFPAY | PROVIDERS: Admitting Provider Nurse Practitioner Family; Emergency Provider Emergency Medicine Emergency Medical Services; PCP Physician Assistant Medical; Visit Provider Surgery | DX: K92.2 Gastrointestinal hemorrhage, unspecified (principal) | CPT/HCPCS: 99222; 99232; 99499 ==

== ENCOUNTER → 2025-02-20 22:47 | Outpatient (BNV) | payer MEDICARE, SELFPAY | PROVIDERS: Admitting Provider Nurse Practitioner Family; Emergency Provider Emergency Medicine Emergency Medical Services; PCP Physician Assistant Medical; Visit Provider Internal Medicine Pulmonary Disease | DX: K92.2 Gastrointestinal hemorrhage, unspecified (principal); D62 Acute posthemorrhagic anemia; F10.20 Alcohol dependence, uncomplicated | CPT/HCPCS: 99291 ==

== ENCOUNTER → 2025-02-20 22:47 | Outpatient (BNV) | payer MEDICARE, SELFPAY | PROVIDERS: Admitting Provider Nurse Practitioner Family; Emergency Provider Emergency Medicine Emergency Medical Services; PCP Physician Assistant Medical; Visit Provider Nurse Practitioner Family | DX: I95.9 Hypotension, unspecified (principal); D62 Acute posthemorrhagic anemia; K92.2 Gastrointestinal hemorrhage, unspecified; E83.42 Hypomagnesemia; R74.8 Abnormal levels of other serum enzymes; F10.20 Alcohol dependence, uncomplicated | CPT/HCPCS: 99222 ==

== ENCOUNTER → 2025-02-20 22:47 | Outpatient (BNV) | payer MEDICARE, SELFPAY | PROVIDERS: Admitting Provider Nurse Practitioner Family; Emergency Provider Emergency Medicine Emergency Medical Services; PCP Physician Assistant Medical; Visit Provider Internal Medicine | DX: K92.2 Gastrointestinal hemorrhage, unspecified (principal); D62 Acute posthemorrhagic anemia | CPT/HCPCS: 99232; 99239; 99499 ==

== ENCOUNTER 2025-03-14 18:48 | Emergency (ER) | payer MEDICARE, SELFPAY ==
--- NOTE | 2025-03-14 19:12 | ED.CPR ---
HPI - CPR General Chief Complaint: Cardiac Arrest/CPR Stated Complaint: cardiac arrest, asystole, no change w radha cpr Time Seen by Provider: 03/14/25 19:11 History of Present Illness ED Provider: Harshad Lynne MD HPI narrative: History provided by EMS additional further history obtained from chart review and from patient's family who arrived later. EMS reports on arrival to the ED the patient had a total downtime of the proximally 40 minutes, 18 10 patient collapsed in front of his who found him pulseless within 5 minutes BLS showed up to the scene I was told no shock was advised on the AED . Compressions were initiated. ALS arrived shortly after a Gabriel tube was placed, Radha device established bilateral tibial IO was placed total of 6 rounds of epi. Initial and every subsequent pulse check with EMS was pulseless with asystole. On arrival to the ED the patient was cool cyanotic unresponsive Radha device in place Past medical history per review is brain tumor, hypertension, hyperlipidemia, neuropathy, alcohol use disorder, hepatic steatosis, opioid use disorder, chronic pain, DJD, depression upper GI bleed treated here at our institution february 2025 at that time he was felt to be in shock requiring embolization of a duodenal ulcer Related Data Home Medications ?Medication ?Instructions ?Recorded ?Confirmed cholecalciferol (vitamin D3) 50 50 mcg PO DAILY 11/30/24 02/21/25 mcg (2,000 unit) disintegrating tablet folic acid 800 mcg tablet 0.8 mg PO DAILY 01/05/25 02/21/25 sertraline 25 mg tablet 25 mg PO DAILY 02/21/25 02/21/25 Previous Rx's ?Medication ?Instructions ?Recorded magnesium oxide 400 mg (241.3 mg 400 mg PO DAILY #90 tabs 02/01/25 magnesium) tablet omeprazole 40 mg capsule,delayed 40 mg PO BID@0630,1630 #1 cap 03/01/25 release amlodipine 10 mg-benazepril 40 mg 1 cap PO DAILY #90 caps 03/08/25 capsule atorvastatin 40 mg tablet 40 mg PO DAILY #90 tabs 03/08/25 thiamine HCl (vitamin B1) 100 mg 100 mg PO DAILY #90 tabs 03/11/25 tablet Allergies Allergy/AdvReac Type Severity Reaction Status Date / Time seasonal Allergy Unknown Itchy Eyes Uncoded 03/14/25 19:56 PMFSH Past Medical History Medical History (Updated 03/15/25 @ 00:01 by Luis Fernando Ma) Hemorrhagic shock Alcohol use disorder Acute hypotension Acute blood loss anemia Acute upper gastrointestinal bleeding Upper GI bleed Thiamine deficiency Low folic acid Hypomagnesemia Falls Elevated liver enzymes Cerebral atrophy Ataxia Persistent Paddy pouch cyst Abnormal liver enzymes Thrombocytopenia Elevated PSA, less than 10 ng/ml Obesity (BMI 30-39.9) Alcohol use disorder, moderate, dependence Gait disorder Elevated PSA History of gastritis Degenerative disc disease, lumbar Depression Cervical spondylosis Osteoarthritis Mild hypercholesterolemia Hypertension Opioid use disorder Opioid use disorder Surgical History History of colonoscopy (~11/23/14) History of neck surgery History of back surgery Social History Social History Household Members: Spouse Housing: House Do you presently have visiting nurse or other home services: Yes ( is his [employer]) Alcohol intake: current Alcohol intake frequency: 3 or more drinks per day Alcohol type: hard liquor Patient Tobacco Use Status: Former Tobacco user Advance Directives: No Advance Directives Information Provided: No Do you have a plan to hurt others: No Plan Physical Exam Vital Signs: Vital Signs: BMI result Body Mass Index 37.3 Const: Other: Appearance: Pale cyanotic pulseless. Gabriel tube airway in place with bag ventilation. Radha device with ongoing compressions Eyes: Pupils fixed and dilated ENT: Serosanguineous fluid from the nares. Gabriel tube in place Neck: Midline trachea no trauma no crepitus CVS: Pulseless pale and cool extremities Respiratory: Audible breath sounds with bag ventilation Abdomen: Soft and nontender. ?No bruising no distention Skin: Cool Extremities: No obvious injury scattered abrasion Neuro: Completely unresponsive Medical Decision Making Medical Decision Making MDM Narrative: This is a 69-year-old male who had a witnessed fall and cardiac arrest BLS on the scene immediately no shocks advised on their AED. Patient had proximally 6 rounds of epinephrine no other medications in the field he was asystole on every pulse check. Gabriel tube was placed. On arrival to ED he was pulseless had no cardiac activity on ultrasound and we continued compressions ACLS was continued for several cycles. Given his recent critical illness reported brain tumor and recent? Upper GI bleed/ulcer with repair? We empirically treated for potential profound acidemia and or hyperkalemia with calcium and bicarbonate. Patient whenever never regained pulses at approximately 1900 I discussed the futility of further efforts with the and she asked me to sees any additional resuscitative measures. At that time I called the code shortly after. Differential Diagnosis Differential Diagnoses: The differential diagnosis associated with the presentation includes Cardiac dysrhythmia, perforated viscus, intracranial hemorrhage, myocardial infarction, Lab Data Labs: Lab Results 03/14/25 03/14/25 Range/Units 18:52 18:52 POC Glucose 76 76 (60-115) mg/dL Procedures Procedure Narrative Procedure Narrative: EMERGENCY ULTRASOUND INTERPRETATION-Limited Echocardiography [This study was ordered, performed, and interpreted by myself. The study reveals: Impression: Cardiac standstill, no tamponade. Lung sliding seen in supine position bilateral anterior lung zones excluding pneumothorax [Emergent Cardiac for Indication: Views Used: Parasternal long axis. Subcostal Pericardial Effusion/Tamponade Findings: NONE RV Dilation (> LV diam in 4ch apical): NONE Global LV Fxn: No LV contractility Performed by: MD Maged Images were stored CPT:[id number]] _ Intubation Intubation Type:: Emergency Endotracheal Intubation Intubation Date:: 03/14/25 Intubation Time:: 18:55 Laryngoscope: Jose ET Tube Uncuffed: Yes Tube Placement Confirmation: visualized tube passing through cords and equal breath sounds bilaterally Patient Tolerated Procedure: well Intubation Complications: none Discharge Plan Discharge Clinical Impression: Cardiac arrest Patient Disposition: Interventions: Organ Donor Nursing Doc/Post Mortem care Last Done: 03/14/25 20:27 Discharge Date/Time: 03/14/25 21:48 Date/Time: 03/14/25 19:02
--- NOTE | 2025-03-14 19:27 | PC.NURSE ---
family bedside visiting patient at this time.
--- NOTE | 2025-03-14 19:49 | PC.NURSE ---
Spoke with Delbert Argueta (Charge Out Clerk) at the [facility] at this time - Case #[id number].
--- NOTE | 2025-03-14 19:53 | PC.NURSE ---
Spoke with patient's primary contact (Myriam Araiza - ) at this time. Per Myriam, home that was chosen for patient is the [facility] in [place].
[2025-03-14 19:55] VITALS: BMI 37.3
[2025-03-15 09:02] LABS: Glucose, Whole Blood 76 mg/dL (60-115)
[2025-03-15 09:14] LABS: Glucose, Whole Blood 76 mg/dL (60-115)
== END 2025-03-14 21:48 | disposition expired ==
LOC: HO.ED 21:23
PROVIDERS: Emergency Provider Emergency Medicine
DX: I46.9 Cardiac arrest, cause unspecified (principal); Z79.899 Other long term (current) drug therapy; Z87.891 Personal history of nicotine dependence
CPT/HCPCS: 82947; 93308; 96374; 96375; 99282; 99285